=== PATIENT | female | born 1955 | race Caucasian/White ===

== ENCOUNTER 2017-05-10 16:41 | Inpatient (IN) | payer OTHER ==
[~2017-05-10] VITALS: Ht 162.6 cm; Wt 106.2 kg
[2017-05-10] MEDS ORDERED: ALBUTEROL SULFATE 2.5 MG/3 ML NPPB SCH (17:00)
[2017-05-10] MEDS ORDERED: ACETAMINOPHEN 325 MG TABLET PO ONE (17:00)
[2017-05-10] MEDS ORDERED: SODIUM CHLORIDE 0.9% 1,000ML IVBOLUS ONE (17:00)
[2017-05-10] MEDS ORDERED: SODIUM CHLORIDE FLUSH 10ML SYR IVF ONE (17:00)
[2017-05-10] MEDS ORDERED: ALBUTEROL SULFATE 2.5 MG/3 ML ONE (17:03)
[2017-05-10] MEDS ORDERED: ACETAMINOPHEN 325 MG TABLET ONE (17:04)
[2017-05-10] MEDS ORDERED: PLEASE ENTER ALLERGIES MC SCH ×2 (17:30)
[2017-05-10 17:35] LABS: RAPID INFLUENZA A Negative (Negative); RAPID INFLUENZA B Negative (Negative)
[2017-05-10 17:38] LABS: ASPARTATE AMINO TRANSFERASE 34 U/L (15-37); BLOOD UREA NITROGEN 14 mg/dL (7-18)
[2017-05-10 17:43] LABS: IS PT STATUS REG ER OR PRE ER? YES
[2017-05-10 17:45] LABS: HEMATOCRIT 38.1 % (34.6-47.8); HEMOGLOBIN 12.7 g/dL (11.7-16.4); WHITE BLOOD COUNT 29.5 x10^3/uL (3.4-10)
[2017-05-10 18:16] LABS: DIFF TOTAL CELLS COUNTED 100 CELL DIFF
[2017-05-10 18:19] LABS: ANISOCYTOSIS 1+; POLYCHROMASIA 1+; VERIFY COUNTS? YES
[2017-05-10] MEDS ORDERED: CEFTRIAXONE PMX 1GM/50ML 50 ML IV ONE (18:30)
[2017-05-10] MEDS ORDERED: AZITHROMYCIN 500 MG in SODIUM CHLORIDE 0.9% 250 ML IV ONE (18:30)
[2017-05-10] MEDS ORDERED: CEFTRIAXONE PMX 1GM/50ML 50 ML ONE (18:32)
[2017-05-10] MEDS ORDERED: IBUPROFEN 200 MG TABLET PO ONE (19:30)
[2017-05-10] MEDS: SODIUM CHLORIDE 0.9% 1,000 ML IV SCH ×2 (19:56→22:14)
[2017-05-10] MEDS ORDERED: DEXTROSE 4 GM TAB.CHEW PO PRN (20:00)
[2017-05-10] MEDS ORDERED: morphine SULFATE 10 MG/ML, 1ML IVPush PRN (20:00)
[2017-05-10] MEDS: ENOXAPARIN 40 MG/0.4 ML SQ SCH (20:00)
[2017-05-10] MEDS ORDERED: AZITHROMYCIN 500 MG in SODIUM CHLORIDE 0.9% 250 ML IV SCH (20:00)
[2017-05-10] MEDS ORDERED: HYDROcodone/CHLORPHENIR ORAL SUSP PO PRN (20:00)
[2017-05-10] MEDS ORDERED: GLUCAGON 1 MG IM PRN (20:00)
[2017-05-10] MEDS ORDERED: hydrALAzine 20 MG/ML, 1ML IVPush PRN (20:00)
[2017-05-10] MEDS ORDERED: DOCUSATE 100 MG CAPSULE PO PRN (20:00)
[2017-05-10] MEDS ORDERED: DEXTROSE 50%, 50ML SYRINGE IVPush PRN (20:00)
[2017-05-10] MEDS ORDERED: ONDANSETRON 2MG/ML, 2ML IVPush PRN (20:00)
[2017-05-10] MEDS: INSULIN ASPART 100 UNITS/ML, PEN SQ-INSULIN SCH (21:00)
[2017-05-10] MEDS: SODIUM CHLORIDE FLUSH 10ML SYR IVF SCH (22:12)
[2017-05-10] MEDS: BENZONATATE 100 MG CAPSULE PO SCH (22:12)
[2017-05-10] MEDS: CALCIUM CARBONATE 500 MG TAB.CHEW PO PRN (22:12)
[2017-05-10 22:29] VITALS: BP 135/95
[2017-05-10] MEDS ORDERED: ALBUTEROL/IPRATROPIUM 2.5MG/0.5MG, 3 ML ONE (23:26)
[2017-05-11 02:37] VITALS: BP 131/71
[2017-05-11 05:35] LABS: HEMATOCRIT 35.7 % (34.6-47.8); HEMOGLOBIN 11.7 g/dL (11.7-16.4); WHITE BLOOD COUNT 28.2 x10^3/uL (3.4-10)
[2017-05-11 05:45] LABS: ASPARTATE AMINO TRANSFERASE 33 U/L (15-37); BLOOD UREA NITROGEN 13 mg/dL (7-18)
[2017-05-11 06:05] LABS: DIFF TOTAL CELLS COUNTED 100 CELL DIFF
[2017-05-11 06:07] LABS: ANISOCYTOSIS 1+; POLYCHROMASIA 1+; VERIFY COUNTS? YES
[2017-05-11] MEDS: PIPERACILLIN/TAZO/PMX 3.375GM 50 ML IV SCH ×3 (06:20→18:38)
[2017-05-11] MEDS ORDERED: CEFTRIAXONE PMX 2GM/50ML 50 ML IV SCH (07:00)
[2017-05-11] MEDS: ALBUTEROL/IPRATROPIUM 2.5MG/0.5MG, 3 ML NPPB SCH ×5 (07:23→22:29)
[2017-05-11] MEDS: INSULIN ASPART 100 UNITS/ML, PEN SQ-INSULIN SCH ×4 (07:33→21:00)
[2017-05-11 08:05] VITALS: BP 127/79
[2017-05-11] MEDS ORDERED: OMNIPAQUE 350 MG/ML, 100ML BOTTLE ONE (08:34)
[2017-05-11] MEDS: BENZONATATE 100 MG CAPSULE PO SCH ×3 (09:10→21:37)
[2017-05-11] MEDS: SODIUM CHLORIDE FLUSH 10ML SYR IVF SCH ×2 (09:10→21:49)
[2017-05-11] MEDS: CALCIUM CARBONATE 500 MG TAB.CHEW PO PRN (09:10)
[2017-05-11] MEDS ORDERED: LOSA1TAB22 PO (10:15)
[2017-05-11] MEDS ORDERED: PRED20TA PO (10:15)
[2017-05-11] MEDS ORDERED: POTA10TA5 PO (10:15)
[2017-05-11] MEDS ORDERED: ALBU1.25 NEB (10:15)
[2017-05-11] MEDS ORDERED: METF500T4 PO (10:15)
[2017-05-11] MEDS: OMEPRAZOLE 20 MG CAPSULE.DR PO SCH (11:22)
[2017-05-11] MEDS: SODIUM CHLORIDE 0.9% 1,000 ML IV SCH (12:35)
[2017-05-11] MEDS: ACETAMINOPHEN 325 MG TABLET PO PRN ×2 (12:36→21:48)
[2017-05-11 16:08] VITALS: BP 117/82
[2017-05-11 16:11] VITALS: BP 117/82
[2017-05-11 18:56] VITALS: BP 139/92
[2017-05-11] MEDS: ENOXAPARIN 40 MG/0.4 ML SQ SCH (21:38)
[2017-05-12] MEDS: PIPERACILLIN/TAZO/PMX 3.375GM 50 ML IV SCH ×3 (00:41→13:00)
[2017-05-12] MEDS: SODIUM CHLORIDE 0.9% 1,000 ML IV SCH (02:33)
[2017-05-12 02:52] VITALS: BP 138/84
[2017-05-12 05:25] LABS: HEMATOCRIT 34.9 % (34.6-47.8); HEMOGLOBIN 11.4 g/dL (11.7-16.4); WHITE BLOOD COUNT 13.6 x10^3/uL (3.4-10)
[2017-05-12 05:47] LABS: BLOOD UREA NITROGEN 12 mg/dL (7-18)
[2017-05-12 05:50] LABS: ASPARTATE AMINO TRANSFERASE 20 U/L (15-37)
[2017-05-12] MEDS: ALBUTEROL/IPRATROPIUM 2.5MG/0.5MG, 3 ML NPPB SCH ×5 (06:59→22:00)
[2017-05-12] MEDS ORDERED: POTASSIUM CHLORIDE 20 MEQ TAB.ER.PRT PO ONE (07:00)
[2017-05-12] MEDS: INSULIN ASPART 100 UNITS/ML, PEN SQ-INSULIN SCH ×4 (07:00→21:01)
[2017-05-12] MEDS: OMEPRAZOLE 20 MG CAPSULE.DR PO SCH (08:01)
[2017-05-12 08:18] VITALS: BP 139/93
[2017-05-12] MEDS: ACETAMINOPHEN 325 MG TABLET PO PRN ×2 (08:37→21:06)
[2017-05-12] MEDS: BENZONATATE 100 MG CAPSULE PO SCH ×3 (09:53→21:00)
[2017-05-12] MEDS: SODIUM CHLORIDE FLUSH 10ML SYR IVF SCH ×2 (09:53→21:00)
[2017-05-12] MEDS: CEFAZOLIN PMX 2GM/50ML 50 ML IVPB SCH ×2 (14:51→22:07)
[2017-05-12 15:56] VITALS: BP 136/86
[2017-05-12 20:07] VITALS: BP 131/85
[2017-05-12] MEDS: ENOXAPARIN 40 MG/0.4 ML SQ SCH (21:00)
[2017-05-13 02:27] VITALS: BP 118/78
[2017-05-13 05:56] LABS: HEMOGLOBIN 10.3 g/dL (11.7-16.4); WHITE BLOOD COUNT 11.1 x10^3/uL (3.4-10)
[2017-05-13] MEDS: CEFAZOLIN PMX 2GM/50ML 50 ML IVPB SCH ×3 (06:11→21:56)
[2017-05-13 06:24] LABS: BLOOD UREA NITROGEN 19 mg/dL (7-18)
[2017-05-13] MEDS: INSULIN ASPART 100 UNITS/ML, PEN SQ-INSULIN SCH ×4 (07:00→20:12)
[2017-05-13] MEDS: ALBUTEROL/IPRATROPIUM 2.5MG/0.5MG, 3 ML NPPB SCH (07:00)
[2017-05-13] MEDS: OMEPRAZOLE 20 MG CAPSULE.DR PO SCH (07:57)
[2017-05-13] MEDS: BENZONATATE 100 MG CAPSULE PO SCH ×3 (07:57→20:12)
[2017-05-13] MEDS: SODIUM CHLORIDE FLUSH 10ML SYR IVF SCH ×2 (07:57→20:13)
[2017-05-13 08:21] VITALS: BP 132/87
[2017-05-13 16:05] VITALS: BP 132/82
[2017-05-13] MEDS: ALBUTEROL/IPRATROPIUM 2.5MG/0.5MG, 3 ML NPPB PRN (19:38)
[2017-05-13 19:44] VITALS: BP 133/82
[2017-05-13] MEDS: ENOXAPARIN 40 MG/0.4 ML SQ SCH (20:13)
[2017-05-14 01:50] VITALS: BP 139/88
[2017-05-14] MEDS: CEFAZOLIN PMX 2GM/50ML 50 ML IVPB SCH ×3 (05:30→21:22)
[2017-05-14 05:34] LABS: HEMATOCRIT 32.1 % (34.6-47.8); HEMOGLOBIN 10.6 g/dL (11.7-16.4); WHITE BLOOD COUNT 9.7 x10^3/uL (3.4-10)
[2017-05-14] MEDS: INSULIN ASPART 100 UNITS/ML, PEN SQ-INSULIN SCH ×4 (07:00→21:21)
[2017-05-14 07:39] VITALS: BP 141/89
[2017-05-14] MEDS: BENZONATATE 100 MG CAPSULE PO SCH ×3 (07:51→21:22)
[2017-05-14] MEDS: OMEPRAZOLE 20 MG CAPSULE.DR PO SCH (07:51)
[2017-05-14] MEDS: SODIUM CHLORIDE FLUSH 10ML SYR IVF SCH ×2 (07:51→21:22)
[2017-05-14] MEDS: ALBUTEROL/IPRATROPIUM 2.5MG/0.5MG, 3 ML NPPB PRN ×2 (08:08→19:06)
[2017-05-14 14:00] VITALS: BP_SYST 134; BP_SYST 141; BP_DIAS 90; BP_DIAS 92
[2017-05-14] MEDS: LOPERAMIDE 2 MG CAPSULE PO PRN (17:36)
[2017-05-14 19:46] VITALS: BP 119/81
[2017-05-14] MEDS: ENOXAPARIN 40 MG/0.4 ML SQ SCH (21:24)
[2017-05-15 02:30] VITALS: BP 135/85
[2017-05-15] MEDS: ACETAMINOPHEN 325 MG TABLET PO PRN (05:09)
[2017-05-15] MEDS: CEFAZOLIN PMX 2GM/50ML 50 ML IVPB SCH ×3 (05:09→21:56)
[2017-05-15 05:35] LABS: HEMATOCRIT 34.6 % (34.6-47.8); HEMOGLOBIN 11.1 g/dL (11.7-16.4)
[2017-05-15 05:43] LABS: BLOOD UREA NITROGEN 17 mg/dL (7-18)
[2017-05-15] MEDS: INSULIN ASPART 100 UNITS/ML, PEN SQ-INSULIN SCH ×4 (07:00→20:21)
[2017-05-15 07:43] VITALS: BP 132/87
[2017-05-15] MEDS: SODIUM CHLORIDE FLUSH 10ML SYR IVF SCH ×2 (09:00→21:55)
[2017-05-15] MEDS: ALBUTEROL/IPRATROPIUM 2.5MG/0.5MG, 3 ML NPPB SCH ×2 (10:20→19:20)
[2017-05-15] MEDS: BENZONATATE 100 MG CAPSULE PO SCH ×3 (10:41→21:55)
[2017-05-15] MEDS: LOPERAMIDE 2 MG CAPSULE PO PRN ×2 (10:41→16:23)
[2017-05-15] MEDS: OMEPRAZOLE 20 MG CAPSULE.DR PO SCH (10:41)
[2017-05-15 14:00] VITALS: BP 146/91
[2017-05-15 19:04] VITALS: BP 144/97
[2017-05-15] MEDS: ENOXAPARIN 40 MG/0.4 ML SQ SCH (21:56)
[2017-05-16 02:22] VITALS: BP 146/81
[2017-05-16] MEDS: ACETAMINOPHEN 325 MG TABLET PO PRN (05:41)
[2017-05-16] MEDS: CEFAZOLIN PMX 2GM/50ML 50 ML IVPB SCH ×3 (05:41→22:58)
[2017-05-16] MEDS: INSULIN ASPART 100 UNITS/ML, PEN SQ-INSULIN SCH ×4 (07:00→20:15)
[2017-05-16 07:21] VITALS: BP 153/92
[2017-05-16] MEDS: ALBUTEROL/IPRATROPIUM 2.5MG/0.5MG, 3 ML NPPB SCH ×2 (07:30→20:09)
[2017-05-16] MEDS: SODIUM CHLORIDE FLUSH 10ML SYR IVF SCH ×2 (09:00→20:14)
[2017-05-16] MEDS: LOPERAMIDE 2 MG CAPSULE PO PRN (09:45)
[2017-05-16] MEDS: OMEPRAZOLE 20 MG CAPSULE.DR PO SCH (09:46)
[2017-05-16] MEDS: BENZONATATE 100 MG CAPSULE PO SCH ×3 (09:47→20:15)
[2017-05-16 15:03] VITALS: BP 145/95
[2017-05-16 19:55] VITALS: BP 140/79
[2017-05-16] MEDS: ENOXAPARIN 40 MG/0.4 ML SQ SCH (20:07)
[2017-05-17 03:25] VITALS: BP 149/86
[2017-05-17] MEDS: ACETAMINOPHEN 325 MG TABLET PO PRN (03:33)
[2017-05-17] MEDS: INSULIN ASPART 100 UNITS/ML, PEN SQ-INSULIN SCH ×4 (07:00→20:43)
[2017-05-17 08:00] VITALS: BP 148/90
[2017-05-17] MEDS: CEFAZOLIN PMX 2GM/50ML 50 ML IVPB SCH ×3 (08:14→23:25)
[2017-05-17] MEDS: SODIUM CHLORIDE FLUSH 10ML SYR IVF SCH ×2 (08:15→20:50)
[2017-05-17] MEDS: BENZONATATE 100 MG CAPSULE PO SCH ×3 (08:15→20:49)
[2017-05-17] MEDS: OMEPRAZOLE 20 MG CAPSULE.DR PO SCH (08:15)
[2017-05-17] MEDS: ALBUTEROL/IPRATROPIUM 2.5MG/0.5MG, 3 ML NPPB SCH ×2 (09:00→20:08)
[2017-05-17 14:00] VITALS: BP 145/95
[2017-05-17 19:54] VITALS: BP 135/84
[2017-05-17] MEDS: ENOXAPARIN 40 MG/0.4 ML SQ SCH (20:49)
[2017-05-18 03:32] VITALS: BP 168/92
[2017-05-18] MEDS: INSULIN ASPART 100 UNITS/ML, PEN SQ-INSULIN SCH (07:00)
[2017-05-18] MEDS: BENZONATATE 100 MG CAPSULE PO SCH (07:45)
[2017-05-18] MEDS: OMEPRAZOLE 20 MG CAPSULE.DR PO SCH (07:45)
[2017-05-18] MEDS: CEFAZOLIN PMX 2GM/50ML 50 ML IVPB SCH (07:46)
[2017-05-18] MEDS: SODIUM CHLORIDE FLUSH 10ML SYR IVF SCH (07:46)
[2017-05-18 08:00] VITALS: BP 149/97
[2017-05-18] MEDS: ALBUTEROL/IPRATROPIUM 2.5MG/0.5MG, 3 ML NPPB SCH (08:55)
[2017-05-18] MEDS ORDERED: CEPH-368 PO (08:56)
[2017-05-18] MEDS ORDERED: FLU VACC QS2017-18 (36MOS+) UP/PF 0.5 ML IM-VACC ONE (10:30)
[2017-05-18] MEDS ORDERED: PNEUMOCOCCAL 23 VACCINE IM-VACC ONE (10:30)
== END 2017-05-18 11:05 | disposition home or self-care (01) | DRG 871 ==
LOC: ED 18:19 → EDIP 19:42 → SUATTDRO 19:54 → 3NE 21:30
PROVIDERS: ADMIT Hospitalist; ATTEND Hospitalist
DX: A41.9 Sepsis, unspecified organism (principal); J96.20 Acute and chronic respiratory failure, unspecified whether with hypoxia or hypercapnia; D89.9 Disorder involving the immune mechanism, unspecified; E66.01 Morbid (severe) obesity due to excess calories; J84.10 Pulmonary fibrosis, unspecified; J44.0 Chronic obstructive pulmonary disease with (acute) lower respiratory infection; Z68.41 Body mass index [BMI] 40.0-44.9, adult; J44.1 Chronic obstructive pulmonary disease with (acute) exacerbation; L03.116 Cellulitis of left lower limb; I11.9 Hypertensive heart disease without heart failure; K44.9 Diaphragmatic hernia without obstruction or gangrene; T38.0X5A Adverse effect of glucocorticoids and synthetic analogues, initial encounter; B95.1 Streptococcus, group B, as the cause of diseases classified elsewhere; E11.9 Type 2 diabetes mellitus without complications; F17.210 Nicotine dependence, cigarettes, uncomplicated; Z23 Encounter for immunization; Z79.52 Long term (current) use of systemic steroids; Z79.84 Long term (current) use of oral hypoglycemic drugs; Z88.1 Allergy status to other antibiotic agents
CPT/HCPCS: 36415; 71010; 71260; 80048; 80053; 81003; 82962; 83036; 83605; 83735; 83880; 84100; 84484; 85025; 85379; 87040; 87147; 87181; 87324; 87400; 90686; 90732; 93005; 93306; 94640; 96361; 96365; 96366; 96368; J0456; J0690; J0696; J1650; J1815; J2543; J7620; Q9967; J7030; J7050; J7512

== ENCOUNTER → 2018-01-01 | Outpatient (CLI) | payer OTHER ==
[~2018-01-01] MED LIST: ALBU1.25 NEB; CEPH-368 PO; LOSA1TAB22 PO; METF500T5 PO; POTA10TA5 PO; PRED20TA PO
== END | disposition home or self-care (01) ==
LOC: WOUND 12:54
PROVIDERS: ATTEND Family Medicine
DX: E11.622 Type 2 diabetes mellitus with other skin ulcer (principal); L97.811 Non-pressure chronic ulcer of other part of right lower leg limited to breakdown of skin; E66.01 Morbid (severe) obesity due to excess calories; E78.5 Hyperlipidemia, unspecified; I11.9 Hypertensive heart disease without heart failure; J44.0 Chronic obstructive pulmonary disease with (acute) lower respiratory infection; J44.1 Chronic obstructive pulmonary disease with (acute) exacerbation; F17.210 Nicotine dependence, cigarettes, uncomplicated; Z68.41 Body mass index [BMI] 40.0-44.9, adult
CPT/HCPCS: 11042; 99205

== ENCOUNTER → 2018-01-08 | Outpatient (CLI) | payer OTHER | END | disposition home or self-care (01) | LOC: WOUND 01-01 14:00 | PROVIDERS: ATTEND Family Medicine | DX: E11.622 Type 2 diabetes mellitus with other skin ulcer (principal); L97.811 Non-pressure chronic ulcer of other part of right lower leg limited to breakdown of skin; E66.01 Morbid (severe) obesity due to excess calories; E78.5 Hyperlipidemia, unspecified; I11.9 Hypertensive heart disease without heart failure; J44.0 Chronic obstructive pulmonary disease with (acute) lower respiratory infection; J44.1 Chronic obstructive pulmonary disease with (acute) exacerbation; F17.210 Nicotine dependence, cigarettes, uncomplicated; Z68.41 Body mass index [BMI] 40.0-44.9, adult | CPT/HCPCS: 11042 ==

== ENCOUNTER → 2018-01-15 | Outpatient (CLI) | payer OTHER | END | disposition home or self-care (01) | LOC: WOUND 11:01 | PROVIDERS: ATTEND Family Medicine | DX: E11.622 Type 2 diabetes mellitus with other skin ulcer (principal); L97.811 Non-pressure chronic ulcer of other part of right lower leg limited to breakdown of skin; E66.01 Morbid (severe) obesity due to excess calories; E78.5 Hyperlipidemia, unspecified; I11.9 Hypertensive heart disease without heart failure; J44.0 Chronic obstructive pulmonary disease with (acute) lower respiratory infection; J44.1 Chronic obstructive pulmonary disease with (acute) exacerbation; F17.210 Nicotine dependence, cigarettes, uncomplicated; Z68.41 Body mass index [BMI] 40.0-44.9, adult | CPT/HCPCS: 97597 ==

== ENCOUNTER → 2018-01-22 | Outpatient (CLI) | payer OTHER | END | disposition home or self-care (01) | LOC: WOUND 10:30 | PROVIDERS: ATTEND Family Medicine | DX: E11.622 Type 2 diabetes mellitus with other skin ulcer (principal); L97.811 Non-pressure chronic ulcer of other part of right lower leg limited to breakdown of skin; E66.01 Morbid (severe) obesity due to excess calories; E78.5 Hyperlipidemia, unspecified; I11.9 Hypertensive heart disease without heart failure; J44.0 Chronic obstructive pulmonary disease with (acute) lower respiratory infection; J44.1 Chronic obstructive pulmonary disease with (acute) exacerbation; F17.210 Nicotine dependence, cigarettes, uncomplicated; Z68.41 Body mass index [BMI] 40.0-44.9, adult | CPT/HCPCS: 97597 ==

== ENCOUNTER → 2018-01-29 | Outpatient (CLI) | payer OTHER | END | disposition home or self-care (01) | LOC: WOUND 10:31 | PROVIDERS: ATTEND Family Medicine | DX: E11.622 Type 2 diabetes mellitus with other skin ulcer (principal); L97.812 Non-pressure chronic ulcer of other part of right lower leg with fat layer exposed; I11.9 Hypertensive heart disease without heart failure; J44.0 Chronic obstructive pulmonary disease with (acute) lower respiratory infection; J44.1 Chronic obstructive pulmonary disease with (acute) exacerbation; E66.01 Morbid (severe) obesity due to excess calories; J44.9 Chronic obstructive pulmonary disease, unspecified; E78.5 Hyperlipidemia, unspecified; F17.210 Nicotine dependence, cigarettes, uncomplicated; Z68.41 Body mass index [BMI] 40.0-44.9, adult | CPT/HCPCS: 97597 ==

== ENCOUNTER → 2018-02-05 | Outpatient (CLI) | payer OTHER | END | disposition home or self-care (01) | LOC: WOUND 10:28 | PROVIDERS: ATTEND Family Medicine | DX: E11.622 Type 2 diabetes mellitus with other skin ulcer (principal); L97.812 Non-pressure chronic ulcer of other part of right lower leg with fat layer exposed; I11.9 Hypertensive heart disease without heart failure; E11.8 Type 2 diabetes mellitus with unspecified complications; E78.5 Hyperlipidemia, unspecified; E66.01 Morbid (severe) obesity due to excess calories; Z68.41 Body mass index [BMI] 40.0-44.9, adult; Z87.891 Personal history of nicotine dependence | CPT/HCPCS: 11042 ==

== ENCOUNTER → 2018-02-12 | Outpatient (CLI) | payer OTHER ==
[~2018-02-12] MED LIST changes: +METF500T17 PO; -METF500T5 PO
== END | disposition home or self-care (01) ==
LOC: WOUND 10:29
PROVIDERS: ATTEND Internal Medicine Cardiovascular Disease
DX: E11.622 Type 2 diabetes mellitus with other skin ulcer (principal); L97.812 Non-pressure chronic ulcer of other part of right lower leg with fat layer exposed; E78.5 Hyperlipidemia, unspecified; K21.9 Gastro-esophageal reflux disease without esophagitis; I11.0 Hypertensive heart disease with heart failure; I50.9 Heart failure, unspecified; J44.1 Chronic obstructive pulmonary disease with (acute) exacerbation; E66.01 Morbid (severe) obesity due to excess calories; F17.210 Nicotine dependence, cigarettes, uncomplicated; Z68.41 Body mass index [BMI] 40.0-44.9, adult
CPT/HCPCS: 99213

== ENCOUNTER → 2018-02-19 | Outpatient (CLI) | payer OTHER | END | disposition home or self-care (01) | LOC: WOUND 10:49 | PROVIDERS: ATTEND Family Medicine | DX: E11.622 Type 2 diabetes mellitus with other skin ulcer (principal); L97.812 Non-pressure chronic ulcer of other part of right lower leg with fat layer exposed; E66.01 Morbid (severe) obesity due to excess calories; E78.5 Hyperlipidemia, unspecified; I11.9 Hypertensive heart disease without heart failure; J44.0 Chronic obstructive pulmonary disease with (acute) lower respiratory infection; J44.1 Chronic obstructive pulmonary disease with (acute) exacerbation; F17.210 Nicotine dependence, cigarettes, uncomplicated; Z68.41 Body mass index [BMI] 40.0-44.9, adult | CPT/HCPCS: 97597 ==

== ENCOUNTER → 2018-02-26 | Outpatient (CLI) | payer OTHER | END | disposition home or self-care (01) | LOC: WOUND 11:00 | PROVIDERS: ATTEND Family Medicine | DX: E11.622 Type 2 diabetes mellitus with other skin ulcer (principal); L97.812 Non-pressure chronic ulcer of other part of right lower leg with fat layer exposed; I11.0 Hypertensive heart disease with heart failure; I50.9 Heart failure, unspecified; J44.9 Chronic obstructive pulmonary disease, unspecified; E78.5 Hyperlipidemia, unspecified; K21.9 Gastro-esophageal reflux disease without esophagitis; E66.01 Morbid (severe) obesity due to excess calories; Z68.41 Body mass index [BMI] 40.0-44.9, adult; Z87.891 Personal history of nicotine dependence | CPT/HCPCS: 97597 ==

== ENCOUNTER → 2018-03-12 | Outpatient (CLI) | payer OTHER | END | disposition home or self-care (01) | LOC: WOUND 10:41 | PROVIDERS: ATTEND Family Medicine | DX: E11.622 Type 2 diabetes mellitus with other skin ulcer (principal); L97.812 Non-pressure chronic ulcer of other part of right lower leg with fat layer exposed; I11.0 Hypertensive heart disease with heart failure; I50.9 Heart failure, unspecified; E78.5 Hyperlipidemia, unspecified; K21.9 Gastro-esophageal reflux disease without esophagitis; E66.01 Morbid (severe) obesity due to excess calories; J44.1 Chronic obstructive pulmonary disease with (acute) exacerbation; J44.0 Chronic obstructive pulmonary disease with (acute) lower respiratory infection; Z68.41 Body mass index [BMI] 40.0-44.9, adult; Z87.891 Personal history of nicotine dependence | CPT/HCPCS: 97597 ==

== ENCOUNTER → 2018-03-29 | Outpatient (CLI) | payer OTHER | END | disposition home or self-care (01) | LOC: WOUND 10:53 | PROVIDERS: ATTEND Internal Medicine | DX: E11.622 Type 2 diabetes mellitus with other skin ulcer (principal); L97.812 Non-pressure chronic ulcer of other part of right lower leg with fat layer exposed; I11.0 Hypertensive heart disease with heart failure; I50.9 Heart failure, unspecified; E78.5 Hyperlipidemia, unspecified; K21.9 Gastro-esophageal reflux disease without esophagitis; E66.01 Morbid (severe) obesity due to excess calories; J44.1 Chronic obstructive pulmonary disease with (acute) exacerbation; J44.0 Chronic obstructive pulmonary disease with (acute) lower respiratory infection; Z68.41 Body mass index [BMI] 40.0-44.9, adult; Z87.891 Personal history of nicotine dependence | CPT/HCPCS: 99214 ==

== ENCOUNTER 2018-05-02 22:39 | Emergency (ER) | payer OTHER ==
[~2018-05-02] VITALS: Ht 157.5 cm; Wt 105.0 kg
[2018-05-02 22:43] VITALS: BP 139/86
[2018-05-02] MEDS ORDERED: KETOROLAC 30 MG/1 ML ONE (23:14)
[2018-05-02] MEDS ORDERED: KETOROLAC 30 MG/1 ML IM ONE (23:30)
[2018-05-03] MEDS ORDERED: HYDROcodone/APAP 5/325 TABLET ONE (00:23)
[2018-05-03] MEDS ORDERED: DIAZEPAM 5 MG TABLET ONE (00:23)
[2018-05-03] MEDS ORDERED: DIAZEPAM 5 MG TABLET PO ONE (00:30)
[2018-05-03] MEDS ORDERED: HYDROcodone/APAP 5/325 TABLET PO ONE (00:30)
== END 2018-05-03 00:43 | disposition home or self-care (01) ==
LOC: ED 05-03 00:02
DX: S32.020A Wedge compression fracture of second lumbar vertebra, initial encounter for closed fracture (principal); S32.040A Wedge compression fracture of fourth lumbar vertebra, initial encounter for closed fracture; E11.9 Type 2 diabetes mellitus without complications; I10 Essential (primary) hypertension; J44.9 Chronic obstructive pulmonary disease, unspecified; F17.210 Nicotine dependence, cigarettes, uncomplicated; X58.XXXA Exposure to other specified factors, initial encounter; Y93.89 Activity, other specified; Y92.89 Other specified places as the place of occurrence of the external cause; Y99.8 Other external cause status
CPT/HCPCS: 72110; 96372; 99283; J1885

== ENCOUNTER 2018-05-08 14:22 | Emergency (ER) | payer OTHER ==
[~2018-05-08] VITALS: Ht 160 cm; Wt 105.0 kg
[2018-05-08] MEDS ORDERED: IBUPROFEN 800 MG TABLET PO STA (15:52)
[2018-05-08] MEDS ORDERED: IBUPROFEN 200 MG TABLET ONE (15:54)
[2018-05-08 15:55] LABS: BASOPHILS # (AUTO) 0.05 x10^3/uL (0-0.1); BASOPHILS % (AUTO) 1 % (0-1); EOSINOPHILS # (AUTO) 0.12 x10^3/uL (0-0.4); EOSINOPHILS % (AUTO) 1 % (1-7); LYMPHOCYTES % (AUTO) 38 % (22-44); MD NO; MEAN CORPUSCULAR HEMOGLOBIN 24.2 pg (27.0-34.8); MEAN CORPUSCULAR HGB CONC 31.7 g/dL (32.4-35.8); MEAN CORPUSCULAR VOLUME 76.1 fL (80-100); MEAN PLATELET VOLUME 7.3 fL (7.4-10.4); MONOCYTES # (AUTO) 0.74 x10^3/uL (0.2-0.8); MONOCYTES % (AUTO) 7 % (2-9); NEUTROPHILS # (AUTO) 6.19 x10^3/uL (1.8-6.8); NEUTROPHILS % (AUTO) 54 % (42-75); PLATELET COUNT 461 x10^3/uL (130-400); RED BLOOD COUNT 4.66 x10^6/uL (3.82-5.3); RED CELL DISTRIBUTION WIDTH 18.5 % (9.6-15.2)
[2018-05-08 16:03] LABS: INTERNATIONAL NORMALIZED RATIO 0.95 (0.93-1.1); PROTHROMBIN TIME 10.1 Seconds (9.6-11.5)
[2018-05-08 16:04] LABS: ALANINE AMINOTRANSFERASE 28 U/L (12-78); ALBUMIN 3.4 g/dL (3.4-5.0); ANION GAP 7 mmol/L (5-15); CALCIUM 9.3 mg/dL (8.5-10.1); CHLORIDE 106 mmol/L (98-107); CREATININE 0.81 mg/dL (0.55-1.02)
[2018-05-08 16:06] LABS: ACETAMINOPHEN 3 mcg/mL (10-30); ALKALINE PHOSPHATASE 108 U/L (45-117); BILIRUBIN,TOTAL 0.4 mg/dL (0.2-1.0); TOTAL PROTEIN 6.8 g/dL (6.4-8.2)
[2018-05-08 17:23] VITALS: BP 174/110
== END 2018-05-08 18:05 | disposition home or self-care (01) ==
LOC: ED 16:53
DX: M48.56XA Collapsed vertebra, not elsewhere classified, lumbar region, initial encounter for fracture (principal); I10 Essential (primary) hypertension; E11.9 Type 2 diabetes mellitus without complications; F17.200 Nicotine dependence, unspecified, uncomplicated
CPT/HCPCS: 36415; 72131; 80053; 80307; 85025; 85610; 99284

== ENCOUNTER → 2018-05-27 | Outpatient (CLI) | payer OTHER | END | disposition home or self-care (01) | LOC: RAD 16:35 | PROVIDERS: ATTEND Physical Medicine & Rehabilitation | DX: M48.56XA Collapsed vertebra, not elsewhere classified, lumbar region, initial encounter for fracture (principal); M51.36 Other intervertebral disc degeneration, lumbar region; N94.89 Other specified conditions associated with female genital organs and menstrual cycle; D18.09 Hemangioma of other sites; Z80.3 Family history of malignant neoplasm of breast | CPT/HCPCS: 72158 ==

== ENCOUNTER → 2018-07-05 | Outpatient (CLI) | payer OTHER | END | disposition home or self-care (01) | LOC: RAD 13:12 | PROVIDERS: ATTEND Nurse Practitioner | DX: S22.089A Unspecified fracture of T11-T12 vertebra, initial encounter for closed fracture (principal); X58.XXXA Exposure to other specified factors, initial encounter; Y93.89 Activity, other specified; Y92.89 Other specified places as the place of occurrence of the external cause; Y99.8 Other external cause status; E11.9 Type 2 diabetes mellitus without complications; J44.1 Chronic obstructive pulmonary disease with (acute) exacerbation; F17.200 Nicotine dependence, unspecified, uncomplicated | CPT/HCPCS: 72148 ==

== ENCOUNTER 2018-07-18 03:29 | Inpatient (IN) | payer OTHER ==
[~2018-07-18] VITALS: Ht 175.3 cm; Wt 99.3 kg
[~2018-07-18 03:29] MED LIST changes: +CALC3.7S5 NS; +CHOL200074 PO; +FURO40TA6 PO; +GABA600T7 PO; +OMEP-110 PO; +TIZA2TAB PO
--- NOTE | 2018-07-18 03:40 | NUR ---
63 Y/O FEMALE BIB [facility] FOR AMS. DAUGHTER STATES PT HAD PROGRESSIVELY GOTTEN WORSE THROUGHOUT THEY DAY, MAKING "ODD STATEMENTS", ALL STARTED AROUND 0930 YESTERDAY AM. THIS AM AROUND 0330 THE PT WAS FOUND "SLUMPED OVER" WITH BLACK VOMIT ON HER CLOTHING. SHE WAS AWAKE HOWEVER WOULD NOT RESPOND TO FAMILY. EMS REPORT THE PT RA O2 SAT UPON ARRIVAL WAS IN THE LOWER 80S. SHE WAS ON 2LPM NC VIA HOME O2. SHE WAS PLACED ON 4LPM AND SAT INCREASED TO LOW 90S. HX OF COPD, DIABETES, HTN. FSBS 211. PT WAS SEEN IN THIS ER YESTERDAY FOR A FALL AND LAC TO RIGHT LOWER LEG, STITCHES PLACED. UPON ARRIVAL TO THE ER THE PT IS ON GURNEY WITH EYES CLOSED, RESPIRATIONS APPEAR TO BE LABORED. ACCESSORY MUSCLE USE PRESENT. SKIN APPEARS TO BE SLIGHTLY PALE. PT OPENS EYES TO NAME BEING CALLED, WHEN ASKED ORIENTATION QUESTIONS SHE JUST RESPONDS WITH "YEAH". SHE IS ABLE TO FOLLOW COMMANDS. EKG OBTAINED. MONITORING EQUIPMENT APPLIED. ALL VITALS STABLE. SINUS TACH ON THE MONITOR, NO ST CHANGES, NO ECTOPY NOTED. 18G IV PLACED BY EMS IN RIGHT AC. PT KEEPS TURNING HERSELF TO THE LEFT SIDE. FACE SYMMETRICAL, SENIOR PHP DEVELOPER STRENGTH EQUAL, NEURO INTACT. PUPILS EQUAL. CALL LIGHT WITHIN REACH. AWAITING PROVIDER TO SEE PT.
--- NOTE | 2018-07-18 03:52 | NUR ---
PT SATS 88-90% ON NC @ 4-6LPM. PT PLACED ON OXYMASK AT 8LPM, SATS INCREASED TO 95%, HR DECREASED.
[2018-07-18] MEDS ORDERED: SODIUM CHLORIDE FLUSH 10ML SYR IVF ONE (04:00)
--- NOTE | 2018-07-18 04:00 | NUR ---
PT MORE ALERT, HAS REPOSITIONED HERSELF IN BED. ANSWERS ORIENTATION QUESTIONS APPROPRIATELY HOWEVER MAKES COMMENTS THAT DON'T MAKE SENSE. PT RANDOMLY STATES "TOMORROW" AND "THE BLACK BEANS". WHEN ASKED WHAT SHE IS REFERRING TO, PT STATES "I DONT' KNOW". PT C/O "I JUST DON'T FEEL WELL, MY BACK HURTS". PT CANNOT GIVE ANY SPECIFIC COMPLAINT AT THIS TIME BESIDES BACK PAIN. DR. YEN MADE AWARE OF PT CHANGES
--- NOTE | 2018-07-18 04:08 | NUR ---
DR. YEN AT BEDSIDE EVALUATING PT. RECTAL EXAM DONE WITH THIS RN SCRAP PREPARER
[2018-07-18] MEDS ORDERED: CEFTRIAXONE PMX 1GM/50ML 50 ML ONE (04:29)
[2018-07-18] MEDS ORDERED: CEFTRIAXONE PMX 1GM/50ML 50 ML IV ONE (04:30)
[2018-07-18] MEDS ORDERED: AZITHROMYCIN 500 MG in SODIUM CHLORIDE 0.9% 250 ML IV ONE (04:30)
[2018-07-18] MEDS ORDERED: SODIUM CHLORIDE 0.9%, 500ML IVBOLUS ONE (04:30)
--- NOTE | 2018-07-18 04:41 | NUR ---
PT MEDICATED PER EMAR. 5 RIGHTS ADDRESSED. BLOOD CULTURES DRAWN X 2. PT REMAINS CONFUSED, AROUSES TO VERBAL STIMULI. DROWSY. VITALS STABLE. RT AT BEDSIDE EVALUATING PT. O2 SAT REMAINS 95%, WOB HAS DECREASED BUT APPEARS SOMEWHAT LABORED STILL, ABD ACCESSORY MUSCLE USE PRESENT
--- NOTE | 2018-07-18 04:48 | NUR ---
PER DR. YEN, OK TO HOLD OFF ON STRAIGHT CATH DUE TO PT NOT BEING ABLE TO LIE FLAT.
--- NOTE | 2018-07-18 05:11 | NUR ---
SECOND ABX STARTED PER EMAR. 5 RIGHTS ADDRESSED. PT NOW ON OPTI-FLOW. TOLERATING WELL. O2 SAT 96%. WOB HAS DECREASED. NOT MUCH ACCESSORY MUSCLE USE PRESENT. PT'S MENTATION REMAINS THE SAME, ALERT AND ORIENTED X 3 WITH CONFUSING STATEMENTS NOTED.
[2018-07-18 05:15] LABS: MEAN CORPUSCULAR HGB CONC 31.2 g/dL (32.4-35.8); MEAN CORPUSCULAR VOLUME 76.7 fL (80-100); MEAN PLATELET VOLUME 7.2 fL (7.4-10.4); PLATELET COUNT 489 x10^3/uL (130-400); RED BLOOD COUNT 4.45 x10^6/uL (3.82-5.3); RED CELL DISTRIBUTION WIDTH 18.7 % (9.6-15.2)
[2018-07-18 05:20] LABS: ALBUMIN 2.6 g/dL (3.4-5.0); ANION GAP 9 mmol/L (5-15); CALCIUM 9.1 mg/dL (8.5-10.1); CHLORIDE 104 mmol/L (98-107)
[2018-07-18 05:23] LABS: ALANINE AMINOTRANSFERASE 37 U/L (12-78); ALKALINE PHOSPHATASE 134 U/L (45-117); BILIRUBIN,TOTAL 0.4 mg/dL (0.2-1.0); CREATININE 0.91 mg/dL (0.55-1.02); TROPONIN I 0.018 ng/mL (0.000-0.045)
--- NOTE | 2018-07-18 05:38 | NUR ---
PT UNABLE TO ANSWER QUESTIONS IN REGARDS TO MED REC, NO FAMILY HERE TO GET MEDICATION INFORMATION FROM.
[2018-07-18 06:04] LABS: BASOPHILS # (AUTO) 0.04 x10^3/uL (0-0.1); BASOPHILS % (AUTO) 0 % (0-1); EOSINOPHILS # (AUTO) 0.01 x10^3/uL (0-0.4); EOSINOPHILS % (AUTO) 0 % (1-7); LYMPHOCYTES % (AUTO) 7 % (22-44); MD SCAN; MONOCYTES # (AUTO) 1.39 x10^3/uL (0.2-0.8); MONOCYTES % (AUTO) 7 % (2-9); NEUTROPHILS # (AUTO) 18.32 x10^3/uL (1.8-6.8); NEUTROPHILS % (AUTO) 86 % (42-75)
--- NOTE | 2018-07-18 06:12 | NUR ---
2ND IV STARTED ON PT, PT NOW NOT EASILY AROUSED BEFORE. PT WILL OPEN HER EYES AND TURN HER HEAD TO HER NAME BEING CALLED, HOWEVER SLOWLY ANSWERS "YEAH" TO ANY QUESTIONS SHE IS ASKED, WHILE EYES REMAIN CLOSED. RR HAS DECREASED, O2 SATS NOW 93% ON OPTIFLOW. DR. LUCERO AWARE
--- NOTE | 2018-07-18 06:22 | NUR ---
DR. LUCERO AT BEDSIDE EVALUATING PT.
[2018-07-18] MEDS ORDERED: ETOMIDATE 20 MG/10 ML IV ONE (06:30)
[2018-07-18] MEDS ORDERED: SUCCINYLCHOLINE 20 MG/ML, 10ML IVPush ONE (06:30)
--- NOTE | 2018-07-18 06:33 | NUR ---
PT TO BE INTUBATED. MOVED TO TRAUMA 4
--- NOTE | 2018-07-18 06:56 | NUR ---
PT INTUBATED BY DR. LUCERO, WITH 8.0 ET TUBE, 24CM AT THE LIP. BILATERAL BREATH SOUNDS, EQUAL CHEST RISE, ETCO2 46. PT SEDATED WITH 20MG OF ETOMIDATE AND 100MG OF SUCCS FOR INTUBATION.
[2018-07-18] MEDS: MIDAZOLAM HCL 25 MG in SODIUM CHLORIDE 0.9% 245 ML IV PRN ×2 (06:57→10:12)
--- NOTE | 2018-07-18 07:02 | NUR ---
REPORT TO MONROE CORREA
--- NOTE | 2018-07-18 07:19 | NUR ---
REPORT TO MONROE SALMERON.
--- NOTE | 2018-07-18 07:36 | NUR ---
DAVIS INSERTED AT 7:30 16 STATELESS. URINE COLLECTED.
--- NOTE | 2018-07-18 07:46 | NUR ---
PER OG TUBE X-RAY REPORT. OG KINKED AND IN LEFT LUNG. OG DISCONTINUED AND PT TAKEN TO CT AND THEN UP TO FLOOR.
[2018-07-18 07:55] LABS: MICROSCOPIC NOT IND
[2018-07-18 07:58] LABS: CULTURE INDICATED? NO
--- NOTE | 2018-07-18 08:08 | NUR ---
LATE ENTRY: [address] SCAN AND THEN TRANSFERRED TO ICU. RT AT BEDSIDE.
--- NOTE | 2018-07-18 08:50 | NUR ---
LATE ENTRY:07:01 BILATERAL HAND RESTRAINTS PLACED ON PT.
[2018-07-18] MEDS ORDERED: ETOMIDATE 40 MG/20 ML ONE (08:54)
[2018-07-18] MEDS ORDERED: SUCCINYLCHOLINE 20 MG/ML, 10ML ONE (08:54)
[2018-07-18] MEDS ORDERED: ACETAMINOPHEN 325 MG TABLET PO PRN (09:30)
[2018-07-18] MEDS ORDERED: ONDANSETRON 2MG/ML, 2ML IVPush PRN (09:30)
[2018-07-18] MEDS ORDERED: BISACODYL 10 MG SUPP PR PRN ×2 (09:30→10:30)
[2018-07-18] MEDS ORDERED: POLYETHYLENE GLYCOL 17 GM PACKET PO PRN (09:30)
[2018-07-18] MEDS: SODIUM CHLORIDE 0.9% 1,000 ML IV SCH (10:03)
[2018-07-18] MEDS: FAMOTIDINE 20 MG/2 ML IVPush SCH ×2 (10:03→21:34)
[2018-07-18] MEDS: ALBUTEROL/IPRATROPIUM 2.5MG/0.5MG, 3 ML INLINE SCH ×4 (10:25→22:30)
[2018-07-18] MEDS ORDERED: GLUCAGON 1 MG IM PRN (10:30)
[2018-07-18] MEDS ORDERED: PHARMACY MAY ADJ FOR RENAL FX MC SCH (10:30)
[2018-07-18] MEDS ORDERED: LACTULOSE 20 GM/30 ML UDC NG PRN (10:30)
[2018-07-18] MEDS ORDERED: LIDOCAINE-MPF 1%, 2ML ENDO PRN (10:30)
[2018-07-18] MEDS ORDERED: SENNA/DOCUSATE TABLET NG PRN (10:30)
[2018-07-18] MEDS ORDERED: DEXTROSE 4 GM TAB.CHEW PO PRN (10:30)
[2018-07-18] MEDS ORDERED: DEXTROSE 50%, 50ML SYRINGE IVPush PRN (10:30)
[2018-07-18] MEDS ORDERED: SENNOSIDES 8.8 MG/5 ML ORAL SOL NG PRN (10:30)
[2018-07-18] MEDS: INSULIN LISPRO 100 UNITS/ML, PEN SQ-INSULIN SCH ×3 (11:00→21:00)
[2018-07-18 11:12] LABS: TROPONIN I < 0.015 ng/mL (0.000-0.045)
[2018-07-18] MEDS: methylPREDNISolone SOD SUCC 40 MG/ML IV SCH ×3 (12:14→23:56)
[2018-07-18] MEDS: ENOXAPARIN 40 MG/0.4 ML SQ SCH (12:14)
[2018-07-18] MEDS: LINEZOLID PMX 600MG/300ML 300 ML IV SCH ×2 (12:14→23:56)
[2018-07-18] MEDS ORDERED: MIDAZOLAM HCL 50 MG in SODIUM CHLORIDE 0.9% 240 ML IV PRN (15:30)
[2018-07-18 16:28] LABS: TROPONIN I < 0.015 ng/mL (0.000-0.045)
[2018-07-18] MEDS: SODIUM CHLORIDE FLUSH 10ML SYR IVF SCH (21:34)
[2018-07-18] MEDS: PROPOFOL 100 ML IV PRN (21:47)
[2018-07-19] MEDS: PROPOFOL 100 ML IV PRN ×4 (01:39→18:50)
[2018-07-19] MEDS: ALBUTEROL/IPRATROPIUM 2.5MG/0.5MG, 3 ML INLINE SCH ×6 (02:23→22:15)
[2018-07-19] MEDS: SODIUM CHLORIDE 0.9% 1,000 ML IV SCH (03:41)
[2018-07-19 04:25] VITALS: BP 117/64
[2018-07-19 04:28] LABS: BASOPHILS # (AUTO) 0.04 x10^3/uL (0-0.1); BASOPHILS % (AUTO) 0 % (0-1); EOSINOPHILS % (AUTO) 0 % (1-7); LYMPHOCYTES # (AUTO) 0.95 x10^3/uL (1-3.4); LYMPHOCYTES % (AUTO) 8 % (22-44); MD NO; MEAN CORPUSCULAR HEMOGLOBIN 24.1 pg (27.0-34.8); MEAN CORPUSCULAR HGB CONC 31.6 g/dL (32.4-35.8); MEAN CORPUSCULAR VOLUME 76.4 fL (80-100); MEAN PLATELET VOLUME 7.4 fL (7.4-10.4); MONOCYTES # (AUTO) 0.28 x10^3/uL (0.2-0.8); MONOCYTES % (AUTO) 2 % (2-9); NEUTROPHILS # (AUTO) 11.23 x10^3/uL (1.8-6.8); NEUTROPHILS % (AUTO) 90 % (42-75); PLATELET COUNT 361 x10^3/uL (130-400); RED BLOOD COUNT 3.79 x10^6/uL (3.82-5.3); RED CELL DISTRIBUTION WIDTH 19.2 % (9.6-15.2)
[2018-07-19 04:40] LABS: ALANINE AMINOTRANSFERASE 26 U/L (12-78); ALBUMIN 2.3 g/dL (3.4-5.0); ANION GAP 6 mmol/L (5-15); CHLORIDE 109 mmol/L (98-107); CREATININE 0.64 mg/dL (0.55-1.02)
[2018-07-19 04:45] LABS: ALKALINE PHOSPHATASE 100 U/L (45-117); BILIRUBIN,TOTAL 0.4 mg/dL (0.2-1.0); PREALBUMIN 12.8 mg/dL (20.0-40.0); TOTAL PROTEIN 5.2 g/dL (6.4-8.2)
[2018-07-19] MEDS: methylPREDNISolone SOD SUCC 40 MG/ML IV SCH ×4 (05:53→23:43)
[2018-07-19] MEDS: INSULIN LISPRO 100 UNITS/ML, PEN SQ-INSULIN SCH ×4 (06:43→20:16)
[2018-07-19] MEDS: CEFTRIAXONE PMX 1GM/50ML 50 ML IV SCH (08:46)
[2018-07-19] MEDS: SODIUM CHLORIDE FLUSH 10ML SYR IVF SCH ×2 (08:46→20:09)
[2018-07-19] MEDS: FAMOTIDINE 20 MG/2 ML IVPush SCH ×2 (08:46→20:09)
[2018-07-19] MEDS: AZITHROMYCIN 500 MG in SODIUM CHLORIDE 0.9% 250 ML IV SCH (08:46)
[2018-07-19] MEDS ORDERED: POTASSIUM CHLORIDE 10% 20 MEQ/15 ML UDC PO ONE (09:30)
[2018-07-19] MEDS ORDERED: POTASSIUM PHOSPHATE 44 MEQ in SODIUM CHLORIDE 0.9% 500 ML IV ONE (09:30)
[2018-07-19] MEDS ORDERED: VECURONIUM 10 MG ONE (09:33)
[2018-07-19] MEDS: FENTANYL PF 100 MCG/2ML IVPush PRN ×3 (09:49→20:09)
[2018-07-19] MEDS ORDERED: FUROSEMIDE 20 MG/2 ML ONE (09:50)
[2018-07-19] MEDS ORDERED: FUROSEMIDE 20 MG/2 ML IV ONE (10:00)
[2018-07-19] MEDS ORDERED: MIDAZOLAM 1 MG/ML, 5ML ONE (10:21)
[2018-07-19] MEDS ORDERED: VECURONIUM 10 MG IVPush ONE (11:30)
[2018-07-19] MEDS ORDERED: MIDAZOLAM 1 MG/ML, 2ML IVPush ONE (11:30)
[2018-07-19] MEDS: ENOXAPARIN 40 MG/0.4 ML SQ SCH (12:12)
--- NOTE | 2018-07-19 13:46 | NUR ---
TF Recommendations: Vital High Protein ON propofol: 50 ml/hr goal OFF propofol: 60 ml goal
[2018-07-19] MEDS ORDERED: METOLAZONE 5 MG TABLET PO ONE (17:30)
[2018-07-20] MEDS: PROPOFOL 100 ML IV PRN ×5 (01:17→22:00)
[2018-07-20] MEDS: ALBUTEROL/IPRATROPIUM 2.5MG/0.5MG, 3 ML INLINE SCH ×6 (02:34→22:55)
[2018-07-20 04:51] LABS: BASOPHILS # (AUTO) 0.11 x10^3/uL (0-0.1); BASOPHILS % (AUTO) 1 % (0-1); EOSINOPHILS # (AUTO) 0.02 x10^3/uL (0-0.4); EOSINOPHILS % (AUTO) 0 % (1-7); LYMPHOCYTES # (AUTO) 1.07 x10^3/uL (1-3.4); LYMPHOCYTES % (AUTO) 7 % (22-44); MD NO; MEAN CORPUSCULAR HEMOGLOBIN 24.9 pg (27.0-34.8); MEAN CORPUSCULAR HGB CONC 32.5 g/dL (32.4-35.8); MEAN CORPUSCULAR VOLUME 76.8 fL (80-100); MEAN PLATELET VOLUME 7.9 fL (7.4-10.4); MONOCYTES # (AUTO) 0.74 x10^3/uL (0.2-0.8); MONOCYTES % (AUTO) 5 % (2-9); NEUTROPHILS # (AUTO) 13.23 x10^3/uL (1.8-6.8); NEUTROPHILS % (AUTO) 87 % (42-75); PLATELET COUNT 360 x10^3/uL (130-400); RED BLOOD COUNT 3.77 x10^6/uL (3.82-5.3); RED CELL DISTRIBUTION WIDTH 18.7 % (9.6-15.2)
[2018-07-20] MEDS: methylPREDNISolone SOD SUCC 40 MG/ML IV SCH ×3 (05:36→17:39)
[2018-07-20] MEDS: FENTANYL PF 100 MCG/2ML IVPush PRN ×3 (06:20→17:39)
[2018-07-20] MEDS: INSULIN LISPRO 100 UNITS/ML, PEN SQ-INSULIN SCH ×4 (07:00→19:45)
[2018-07-20] MEDS: CEFTRIAXONE PMX 1GM/50ML 50 ML IV SCH (07:52)
[2018-07-20] MEDS: AZITHROMYCIN 500 MG in SODIUM CHLORIDE 0.9% 250 ML IV SCH (07:52)
[2018-07-20] MEDS ORDERED: ZIPRASIDONE 20 MG INJ IM PRN (09:00)
[2018-07-20] MEDS: SODIUM CHLORIDE FLUSH 10ML SYR IVF SCH ×2 (10:02→19:41)
[2018-07-20] MEDS: FAMOTIDINE 20 MG/2 ML IVPush SCH ×2 (10:02→19:40)
[2018-07-20] MEDS: ENOXAPARIN 40 MG/0.4 ML SQ SCH (13:24)
[2018-07-20] MEDS ORDERED: LIDOCAINE 2%, 6 ML JEL.PF.APP MM ONE (13:32)
[2018-07-20] MEDS ORDERED: MIDAZOLAM 1 MG/ML, 5ML ONE (13:47)
[2018-07-20] MEDS ORDERED: MIDAZOLAM 1 MG/ML, 2ML IVPush ONE ×2 (14:00→14:30)
[2018-07-20] MEDS ORDERED: VISIPAQUE 320MG/ML, 50ML BOTTLE ONE (14:35)
[2018-07-21] MEDS: methylPREDNISolone SOD SUCC 40 MG/ML IV SCH ×4 (00:39→17:20)
[2018-07-21] MEDS: PROPOFOL 100 ML IV PRN (01:14)
[2018-07-21] MEDS: ALBUTEROL/IPRATROPIUM 2.5MG/0.5MG, 3 ML INLINE SCH ×3 (02:30→10:30)
[2018-07-21 04:33] LABS: BASOPHILS % (AUTO) 0 % (0-1); EOSINOPHILS % (AUTO) 0 % (1-7); LYMPHOCYTES # (AUTO) 0.66 x10^3/uL (1-3.4); LYMPHOCYTES % (AUTO) 7 % (22-44); MD NO; MEAN CORPUSCULAR HEMOGLOBIN 24.7 pg (27.0-34.8); MEAN CORPUSCULAR HGB CONC 32.3 g/dL (32.4-35.8); MEAN CORPUSCULAR VOLUME 76.4 fL (80-100); MEAN PLATELET VOLUME 7.4 fL (7.4-10.4); MONOCYTES # (AUTO) 0.32 x10^3/uL (0.2-0.8); MONOCYTES % (AUTO) 3 % (2-9); NEUTROPHILS # (AUTO) 9.04 x10^3/uL (1.8-6.8); NEUTROPHILS % (AUTO) 90 % (42-75); PLATELET COUNT 381 x10^3/uL (130-400); RED BLOOD COUNT 3.75 x10^6/uL (3.82-5.3); RED CELL DISTRIBUTION WIDTH 18.5 % (9.6-15.2)
[2018-07-21] MEDS: INSULIN LISPRO 100 UNITS/ML, PEN SQ-INSULIN SCH ×4 (07:00→20:36)
[2018-07-21 08:01] LABS: ALANINE AMINOTRANSFERASE 45 U/L (12-78); ALBUMIN 2.5 g/dL (3.4-5.0); ANION GAP 5 mmol/L (5-15); CALCIUM 9.2 mg/dL (8.5-10.1); CHLORIDE 103 mmol/L (98-107); CREATININE 0.59 mg/dL (0.55-1.02)
[2018-07-21 08:03] LABS: ALKALINE PHOSPHATASE 90 U/L (45-117); BILIRUBIN,TOTAL 0.4 mg/dL (0.2-1.0); TOTAL PROTEIN 5.5 g/dL (6.4-8.2)
[2018-07-21] MEDS: CEFTRIAXONE PMX 1GM/50ML 50 ML IV SCH (08:05)
[2018-07-21] MEDS ORDERED: POTASSIUM CHLORIDE 10% 40 MEQ/30 ML UDC PO ONE (09:00)
[2018-07-21] MEDS: FAMOTIDINE 20 MG/2 ML IVPush SCH ×2 (09:21→20:37)
[2018-07-21] MEDS: SODIUM CHLORIDE FLUSH 10ML SYR IVF SCH ×2 (09:21→20:36)
[2018-07-21] MEDS: AZITHROMYCIN 500 MG in SODIUM CHLORIDE 0.9% 250 ML IV SCH (09:21)
[2018-07-21] MEDS ORDERED: FUROSEMIDE 20 MG/2 ML ONE (10:28)
[2018-07-21] MEDS ORDERED: FUROSEMIDE 20 MG/2 ML IV ONE (10:30)
[2018-07-21] MEDS: ENOXAPARIN 40 MG/0.4 ML SQ SCH (13:39)
[2018-07-21] MEDS: OXYcodone IR 5MG TABLET PO PRN (16:07)
[2018-07-21] MEDS: LIDODERM 5% PATCH TD PRN (17:20)
[2018-07-21] MEDS ORDERED: LABETALOL 5MG/ML, 20ML IVPush PRN (17:30)
[2018-07-21] MEDS ORDERED: LIDODERM 5% PATCH TD SCH (17:30)
[2018-07-21] MEDS ORDERED: ALBUTEROL/IPRATROPIUM 2.5MG/0.5MG, 3 ML INLINE SCH (21:00)
[2018-07-21] MEDS ORDERED: ALBUTEROL SULFATE 2.5 MG/3 ML NPPB PRN (22:00)
[2018-07-22] MEDS: methylPREDNISolone SOD SUCC 40 MG/ML IV SCH ×2 (00:40→05:48)
[2018-07-22 05:06] LABS: BASOPHILS # (AUTO) 0.02 x10^3/uL (0-0.1); BASOPHILS % (AUTO) 0 % (0-1); EOSINOPHILS % (AUTO) 0 % (1-7); LYMPHOCYTES # (AUTO) 1.23 x10^3/uL (1-3.4); LYMPHOCYTES % (AUTO) 10 % (22-44); MD NO; MEAN CORPUSCULAR HEMOGLOBIN 24.9 pg (27.0-34.8); MEAN CORPUSCULAR HGB CONC 32.5 g/dL (32.4-35.8); MEAN CORPUSCULAR VOLUME 76.6 fL (80-100); MONOCYTES # (AUTO) 0.69 x10^3/uL (0.2-0.8); MONOCYTES % (AUTO) 5 % (2-9); NEUTROPHILS # (AUTO) 10.77 x10^3/uL (1.8-6.8); NEUTROPHILS % (AUTO) 85 % (42-75); PLATELET COUNT 391 x10^3/uL (130-400); RED BLOOD COUNT 3.94 x10^6/uL (3.82-5.3); RED CELL DISTRIBUTION WIDTH 19.5 % (9.6-15.2)
[2018-07-22] MEDS: INSULIN LISPRO 100 UNITS/ML, PEN SQ-INSULIN SCH ×4 (07:00→19:50)
[2018-07-22 07:44] LABS: ALANINE AMINOTRANSFERASE 81 U/L (12-78); ALBUMIN 2.7 g/dL (3.4-5.0); ANION GAP 8 mmol/L (5-15); CALCIUM 9.1 mg/dL (8.5-10.1); CHLORIDE 102 mmol/L (98-107)
[2018-07-22 07:47] LABS: ALKALINE PHOSPHATASE 88 U/L (45-117); BILIRUBIN,TOTAL 0.6 mg/dL (0.2-1.0); CREATININE 0.61 mg/dL (0.55-1.02); TOTAL PROTEIN 5.9 g/dL (6.4-8.2)
[2018-07-22] MEDS: ALBUTEROL/IPRATROPIUM 2.5MG/0.5MG, 3 ML NPPB SCH ×2 (07:53→22:00)
[2018-07-22] MEDS: LOSARTAN 50MG TABLET PO SCH (08:25)
[2018-07-22] MEDS: FAMOTIDINE 20 MG/2 ML IVPush SCH (08:26)
[2018-07-22] MEDS: CEFTRIAXONE PMX 1GM/50ML 50 ML IV SCH (08:40)
[2018-07-22] MEDS: LIDODERM 5% PATCH TD PRN (09:34)
[2018-07-22] MEDS: AZITHROMYCIN 500 MG in SODIUM CHLORIDE 0.9% 250 ML IV SCH (09:38)
[2018-07-22] MEDS: SODIUM CHLORIDE FLUSH 10ML SYR IVF SCH ×2 (09:43→19:50)
[2018-07-22] MEDS ORDERED: POTASSIUM CHLORIDE 20 MEQ TAB.ER.PRT PO ONE (11:00)
[2018-07-22] MEDS: ENOXAPARIN 40 MG/0.4 ML SQ SCH (11:49)
[2018-07-22] MEDS ORDERED: LIDODERM 5% PATCH TD ONE (13:13)
[2018-07-22 13:50] VITALS: BP 165/103
[2018-07-22 14:40] VITALS: BP 158/95
[2018-07-22] MEDS: OXYcodone IR 5MG TABLET PO PRN ×2 (17:07→21:18)
[2018-07-22] MEDS ORDERED: LIDODERM 5% PATCH TD PRN (17:30)
[2018-07-22] MEDS: FAMOTIDINE 20 MG TABLET PO SCH (19:48)
[2018-07-22] MEDS: CEFDINIR 300 MG CAPSULE PO SCH (19:48)
[2018-07-22 19:58] VITALS: BP 123/77
[2018-07-23 00:40] VITALS: BP 138/85
[2018-07-23] MEDS: OXYcodone IR 5MG TABLET PO PRN ×3 (01:28→14:18)
[2018-07-23 04:54] LABS: BASOPHILS # (AUTO) 0.11 x10^3/uL (0-0.1); BASOPHILS % (AUTO) 1 % (0-1); EOSINOPHILS # (AUTO) 0.01 x10^3/uL (0-0.4); EOSINOPHILS % (AUTO) 0 % (1-7); LYMPHOCYTES # (AUTO) 2.95 x10^3/uL (1-3.4); LYMPHOCYTES % (AUTO) 25 % (22-44); MD NO; MEAN CORPUSCULAR HEMOGLOBIN 24.6 pg (27.0-34.8); MEAN CORPUSCULAR VOLUME 76.8 fL (80-100); MEAN PLATELET VOLUME 7.5 fL (7.4-10.4); MONOCYTES # (AUTO) 1.07 x10^3/uL (0.2-0.8); MONOCYTES % (AUTO) 9 % (2-9); NEUTROPHILS # (AUTO) 7.76 x10^3/uL (1.8-6.8); NEUTROPHILS % (AUTO) 65 % (42-75); PLATELET COUNT 431 x10^3/uL (130-400); RED BLOOD COUNT 4.01 x10^6/uL (3.82-5.3); RED CELL DISTRIBUTION WIDTH 19.2 % (9.6-15.2)
[2018-07-23 05:03] LABS: CHLORIDE 104 mmol/L (98-107)
[2018-07-23 05:12] LABS: ALANINE AMINOTRANSFERASE 63 U/L (12-78); ALBUMIN 2.6 g/dL (3.4-5.0); ALKALINE PHOSPHATASE 87 U/L (45-117); ANION GAP 3 mmol/L (5-15); BILIRUBIN,TOTAL 0.5 mg/dL (0.2-1.0); CALCIUM 9.1 mg/dL (8.5-10.1); CREATININE 0.61 mg/dL (0.55-1.02); TOTAL PROTEIN 5.5 g/dL (6.4-8.2)
[2018-07-23] MEDS: INSULIN LISPRO 100 UNITS/ML, PEN SQ-INSULIN SCH ×2 (07:00→11:00)
[2018-07-23] MEDS: LOSARTAN 50MG TABLET PO SCH (08:19)
[2018-07-23] MEDS: SODIUM CHLORIDE FLUSH 10ML SYR IVF SCH (08:19)
[2018-07-23] MEDS: CEFDINIR 300 MG CAPSULE PO SCH (08:19)
[2018-07-23] MEDS: FAMOTIDINE 20 MG TABLET PO SCH (08:19)
[2018-07-23] MEDS ORDERED: POTASSIUM CHLORIDE 20 MEQ TAB.ER.PRT PO ONE (08:30)
[2018-07-23 08:40] VITALS: BP 108/71
[2018-07-23] MEDS ORDERED: AZITHROMYCIN 500 MG TABLET PO SCH ×2 (09:00→13:00)
[2018-07-23] MEDS: ALBUTEROL/IPRATROPIUM 2.5MG/0.5MG, 3 ML NPPB SCH (10:59)
[2018-07-23 12:30] VITALS: BP 131/84
[2018-07-23] MEDS ORDERED: ERGOCALCIFEROL 50,000 UNIT CAPSULE PO SCH (12:30)
[2018-07-23] MEDS ORDERED: ACET325T14 PO (12:35)
[2018-07-23] MEDS ORDERED: LOSA50TA2 PO (12:35)
[2018-07-23] MEDS ORDERED: ERGO500017 PO (12:35)
[2018-07-23] MEDS ORDERED: POLY17PO5 PO (12:35)
[2018-07-23] MEDS ORDERED: OXYC5TAB3 PO (12:35)
[2018-07-23] MEDS ORDERED: LACT1TAB13 PO (12:35)
[2018-07-23] MEDS ORDERED: GABA300C10 PO (12:35)
[2018-07-23] MEDS ORDERED: FLUT1DIS3 INH (12:35)
[2018-07-23] MEDS ORDERED: PRED10TA PO (12:35)
[2018-07-23] MEDS ORDERED: DOXY100C15 PO (12:35)
[2018-07-23] MEDS ORDERED: TIOT18CA INH (12:35)
[2018-07-23] MEDS ORDERED: CEFD300C37 PO (12:35)
[2018-07-23] MEDS ORDERED: AZIT500T5 PO (12:40)
[2018-07-23] MEDS ORDERED: LIDO700A20 TD (12:46)
[2018-07-23] MEDS: ENOXAPARIN 40 MG/0.4 ML SQ SCH (13:11)
== END 2018-07-23 17:18 | DRG 853 ==
LOC: ED 04:21 → EDIP 08:08 → ICU 08:17 → CCU 07-20 14:27 → 3NW 07-22 14:09
PROVIDERS: ADMIT Hospitalist; ATTEND Hospitalist
PROC: 5A1945Z Respiratory Ventilation, 24-96 Consecutive Hours (ICD-10-PCS; principal; 2018-07-19)
PROC: 0B9H8ZX Drainage of Lung Lingula, Via Natural or Artificial Opening Endoscopic, Diagnostic (ICD-10-PCS; 2018-07-19)
PROC: 0BH17EZ Insertion of Endotracheal Airway into Trachea, Via Natural or Artificial Opening (ICD-10-PCS; 2018-07-19)
PROC: 0BC98ZZ Extirpation of Matter from Lingula Bronchus, Via Natural or Artificial Opening Endoscopic (ICD-10-PCS; 2018-07-19)
PROC: 0BC78ZZ Extirpation of Matter from Left Main Bronchus, Via Natural or Artificial Opening Endoscopic (ICD-10-PCS; 2018-07-19)
PROC: 0BC68ZZ Extirpation of Matter from Right Lower Lobe Bronchus, Via Natural or Artificial Opening Endoscopic (ICD-10-PCS; 2018-07-19)
PROC: 0BCB8ZZ Extirpation of Matter from Left Lower Lobe Bronchus, Via Natural or Artificial Opening Endoscopic (ICD-10-PCS; 2018-07-19)
PROC: 0B9J8ZX Drainage of Left Lower Lung Lobe, Via Natural or Artificial Opening Endoscopic, Diagnostic (ICD-10-PCS; 2018-07-19)
PROC: 0B9F8ZX Drainage of Right Lower Lung Lobe, Via Natural or Artificial Opening Endoscopic, Diagnostic (ICD-10-PCS; 2018-07-19)
DX: A41.9 Sepsis, unspecified organism (principal); E43 Unspecified severe protein-calorie malnutrition; G93.41 Metabolic encephalopathy; J15.9 Unspecified bacterial pneumonia; J96.21 Acute and chronic respiratory failure with hypoxia; J96.22 Acute and chronic respiratory failure with hypercapnia; J44.0 Chronic obstructive pulmonary disease with (acute) lower respiratory infection; J44.1 Chronic obstructive pulmonary disease with (acute) exacerbation; M48.54XA Collapsed vertebra, not elsewhere classified, thoracic region, initial encounter for fracture; M48.56XA Collapsed vertebra, not elsewhere classified, lumbar region, initial encounter for fracture; T17.590A Other foreign object in bronchus causing asphyxiation, initial encounter; Z99.11 Dependence on respirator [ventilator] status; J32.9 Chronic sinusitis, unspecified; S81.811A Laceration without foreign body, right lower leg, initial encounter; E11.9 Type 2 diabetes mellitus without complications; E55.9 Vitamin D deficiency, unspecified; E66.9 Obesity, unspecified; F17.200 Nicotine dependence, unspecified, uncomplicated; G89.4 Chronic pain syndrome; M54.9 Dorsalgia, unspecified; I10 Essential (primary) hypertension; I25.10 Atherosclerotic heart disease of native coronary artery without angina pectoris; I35.8 Other nonrheumatic aortic valve disorders; K21.9 Gastro-esophageal reflux disease without esophagitis; T38.0X5A Adverse effect of glucocorticoids and synthetic analogues, initial encounter; K44.9 Diaphragmatic hernia without obstruction or gangrene; X58.XXXA Exposure to other specified factors, initial encounter; Y93.89 Activity, other specified; Y92.89 Other specified places as the place of occurrence of the external cause; Z79.52 Long term (current) use of systemic steroids; Z99.81 Dependence on supplemental oxygen; Z79.899 Other long term (current) drug therapy; Z68.32 Body mass index [BMI] 32.0-32.9, adult
CPT/HCPCS: 31500; 36415; 36600; 74018; 74340; 84145; 99291; J3490; J7620; 31624; 70450; 71045; 80053; 81003; 82306; 82803; 82962; 83605; 83735; 83880; 84100; 84134; 84478; 84484; 85025; 86850; 86900; 87040; 87070; 87081; 87102; 87205; 90656; 93005; 93306; 94002; 94003; 94640; 96365; 96367; G0378; J0456; J0696; J1650; J2020; J2250; J2704; J3010; Q9967; J0330; J1815; J1940; J2920; J7030; J7040; J7050; J7512

== ENCOUNTER 2018-08-02 08:29 | Outpatient (CLI) | payer OTHER ==
[~2018-08-02 08:29] MED LIST changes: +ACET325T14 PO; +AZIT500T5 PO; +CEFD300C37 PO; +DOXY100C15 PO; +ERGO500017 PO; +FLUT1DIS3 INH; +GABA300C10 PO; +LACT1TAB13 PO; +LIDO700A20 TD; +LOSA50TA2 PO; +OXYC5TAB3 PO; +POLY17PO5 PO; +PRED10TA PO; +TIOT18CA INH
== END 2018-08-02 23:59 | disposition home or self-care (01) ==
LOC: WOUND 08:29
PROVIDERS: ATTEND Internal Medicine
DX: E11.622 Type 2 diabetes mellitus with other skin ulcer (principal); I87.331 Chronic venous hypertension (idiopathic) with ulcer and inflammation of right lower extremity; L97.212 Non-pressure chronic ulcer of right calf with fat layer exposed; E11.65 Type 2 diabetes mellitus with hyperglycemia; R60.0 Localized edema; G89.4 Chronic pain syndrome; E78.5 Hyperlipidemia, unspecified; M19.90 Unspecified osteoarthritis, unspecified site; K21.9 Gastro-esophageal reflux disease without esophagitis; J44.9 Chronic obstructive pulmonary disease, unspecified; I25.10 Atherosclerotic heart disease of native coronary artery without angina pectoris; E66.9 Obesity, unspecified; Z68.38 Body mass index [BMI] 38.0-38.9, adult; Z87.891 Personal history of nicotine dependence
CPT/HCPCS: 11042; 99215

== ENCOUNTER 2018-08-09 10:01 | Inpatient (IN) | payer OTHER ==
[~2018-08-09] VITALS: Ht 157.5 cm; Wt 87.3 kg
[2018-08-09] MEDS ORDERED: AMPICILLIN/SULBACTAM 3 GM in SODIUM CHLORIDE 0.9% 100 ML IV SCH (10:36)
[2018-08-09] MEDS ORDERED: L.E.T SOLUTION TP ONE ×2 (10:37→11:00)
[2018-08-09] MEDS ORDERED: ONDANSETRON 2MG/ML, 2ML ONE (10:44)
[2018-08-09] MEDS ORDERED: HYDROmorphone 1 MG/ML, 1ML INJ ONE ×2 (10:44→12:08)
[2018-08-09] MEDS: HYDROmorphone 1 MG/ML, 1ML INJ IVPush PRN ×2 (10:47→12:10)
--- NOTE | 2018-08-09 10:47 | NUR ---
TASK RN : FIRST CONTACT WITH PT. PAIN MEDICATIONS ADMINISTERED PER EMAR. LAB BEDSIDE.
[2018-08-09] MEDS ORDERED: ONDANSETRON 2MG/ML, 2ML IVPush ONE (11:00)
[2018-08-09] MEDS ORDERED: SODIUM CHLORIDE FLUSH 10ML SYR IVF ONE (11:00)
[2018-08-09 11:19] LABS: BASOPHILS # (AUTO) 0.02 x10^3/uL (0-0.1); BASOPHILS % (AUTO) 0 % (0-1); EOSINOPHILS # (AUTO) 0.02 x10^3/uL (0-0.4); EOSINOPHILS % (AUTO) 0 % (1-7); LYMPHOCYTES # (AUTO) 1.33 x10^3/uL (1-3.4); LYMPHOCYTES % (AUTO) 10 % (22-44); MD NO; MEAN CORPUSCULAR HEMOGLOBIN 24.2 pg (27.0-34.8); MEAN CORPUSCULAR HGB CONC 31.5 g/dL (32.4-35.8); MEAN CORPUSCULAR VOLUME 76.9 fL (80-100); MEAN PLATELET VOLUME 6.8 fL (7.4-10.4); MONOCYTES # (AUTO) 0.68 x10^3/uL (0.2-0.8); MONOCYTES % (AUTO) 5 % (2-9); NEUTROPHILS # (AUTO) 10.98 x10^3/uL (1.8-6.8); NEUTROPHILS % (AUTO) 84 % (42-75); PLATELET COUNT 648 x10^3/uL (130-400); RED BLOOD COUNT 4.14 x10^6/uL (3.82-5.3); RED CELL DISTRIBUTION WIDTH 19.2 % (9.6-15.2)
[2018-08-09 11:29] LABS: ALANINE AMINOTRANSFERASE 21 U/L (12-78); ALBUMIN 2.9 g/dL (3.4-5.0); ANION GAP 9 mmol/L (5-15); CALCIUM 9.3 mg/dL (8.5-10.1); CHLORIDE 103 mmol/L (98-107); CREATININE 0.69 mg/dL (0.55-1.02)
[2018-08-09 11:32] LABS: ALKALINE PHOSPHATASE 145 U/L (45-117); BILIRUBIN,TOTAL 0.5 mg/dL (0.2-1.0); TOTAL PROTEIN 6.6 g/dL (6.4-8.2)
[2018-08-09] MEDS ORDERED: CALC3.7S5 INH (12:30)
[2018-08-09] MEDS ORDERED: CLIN150C14 PO (12:30)
[2018-08-09] MEDS ORDERED: [UNRECOGNIZED DRUG - OTHER] (12:30)
[2018-08-09] MEDS ORDERED: POTASSIUM CHLORIDE 20 MEQ TAB.ER.PRT PO ONE (12:30)
--- NOTE | 2018-08-09 12:46 | NUR ---
REPORT GIVEN TO FAYE CHILDRESS, PT READY FOR TRANSPORT TO FLOOR
[2018-08-09 13:15] VITALS: BP 127/84
[2018-08-09] MEDS: VANCOMYCIN PER PHARMACY MC SCH (14:00)
[2018-08-09] MEDS ORDERED: ACETAMINOPHEN 325 MG TABLET PO PRN ×2 (14:00)
[2018-08-09] MEDS ORDERED: KETOROLAC 30 MG/1 ML IM PRN (14:00)
[2018-08-09] MEDS ORDERED: TEMPLATE NON-FORMULARY MED. (Prednisone** 10 MG) PO SCH (14:00)
[2018-08-09] MEDS: IPRATROPIUM 0.5 MG/2.5 ML INHA NPPB SCH ×2 (14:30→22:35)
[2018-08-09] MEDS ORDERED: PHARMACOKINETIC MONITORING MC PRN (15:00)
[2018-08-09] MEDS: ALBUTEROL SULFATE 2.5 MG/3 ML NPPB SCH ×2 (15:00→22:35)
[2018-08-09 15:09] LABS: HCT (SEDRATE) 31.8 % (34.6-47.8)
[2018-08-09] MEDS: HYDROcodone/APAP 5/325 TABLET PO PRN ×2 (15:30→21:59)
[2018-08-09] MEDS: GABAPENTIN 300 MG CAPSULE PO SCH ×2 (15:31→20:35)
[2018-08-09] MEDS: ERGOCALCIFEROL 50,000 UNIT CAPSULE PO SCH (15:31)
[2018-08-09] MEDS: LIDODERM 5% PATCH TD PRN (15:31)
[2018-08-09] MEDS: POTASSIUM ACETATE 20 MEQ in SODIUM CHLORIDE 0.9% 1,000 ML IV SCH (15:32)
[2018-08-09] MEDS ORDERED: GLUCAGON 1 MG IM PRN (16:00)
[2018-08-09] MEDS ORDERED: DEXTROSE 4 GM TAB.CHEW PO PRN (16:00)
[2018-08-09] MEDS: INSULIN LISPRO 100 UNITS/ML, PEN SQ-INSULIN SCH ×2 (16:00→20:35)
[2018-08-09] MEDS ORDERED: DEXTROSE 50%, 50ML SYRINGE IVPush PRN (16:00)
[2018-08-09] MEDS: ENOXAPARIN 40 MG/0.4 ML SQ SCH (16:01)
[2018-08-09] MEDS: CEFTRIAXONE PMX 1GM/50ML 50 ML IVPB SCH (16:01)
[2018-08-09] MEDS ORDERED: GADOBUTROL 10 MMOL/10 ML PFS ONE (17:40)
[2018-08-09] MEDS: OXYcodone/APAP 5/325MG TABLET PO PRN (19:07)
[2018-08-09] MEDS: VANCOMYCIN 1,800 MG in SODIUM CHLORIDE 0.9% 250 ML IV SCH (19:32)
[2018-08-09 19:48] VITALS: BP 136/92
[2018-08-09] MEDS: TIZANIDINE 2MG TABLET PO SCH (20:35)
[2018-08-09] MEDS: metFORMIN 500 MG TABLET PO SCH (20:35)
[2018-08-09] MEDS: SODIUM CHLORIDE FLUSH 10ML SYR IVF SCH (20:36)
[2018-08-09] MEDS: BUDESONIDE 0.5 MG/2 ML INHA NPPB SCH (22:35)
[2018-08-10 01:54] VITALS: BP 134/88
[2018-08-10] MEDS: IPRATROPIUM 0.5 MG/2.5 ML INHA NPPB SCH (02:30)
[2018-08-10] MEDS: OXYcodone/APAP 5/325MG TABLET PO PRN ×2 (03:35→08:43)
[2018-08-10] MEDS: ALBUTEROL SULFATE 2.5 MG/3 ML NPPB SCH (05:00)
[2018-08-10 05:39] LABS: MEAN CORPUSCULAR HEMOGLOBIN 25.1 pg (27.0-34.8); MEAN CORPUSCULAR HGB CONC 32.5 g/dL (32.4-35.8); MEAN CORPUSCULAR VOLUME 77.2 fL (80-100); MEAN PLATELET VOLUME 6.7 fL (7.4-10.4); PLATELET COUNT 579 x10^3/uL (130-400); RED BLOOD COUNT 3.93 x10^6/uL (3.82-5.3); RED CELL DISTRIBUTION WIDTH 18.6 % (9.6-15.2)
[2018-08-10 06:05] LABS: BASOPHILS # (AUTO) 0.03 x10^3/uL (0-0.1); BASOPHILS % (AUTO) 0 % (0-1); CHLORIDE 105 mmol/L (98-107); EOSINOPHILS % (AUTO) 0 % (1-7); LYMPHOCYTES # (AUTO) 1.74 x10^3/uL (1-3.4); LYMPHOCYTES % (AUTO) 10 % (22-44); MD SCAN; MONOCYTES # (AUTO) 1.36 x10^3/uL (0.2-0.8); MONOCYTES % (AUTO) 7 % (2-9); NEUTROPHILS # (AUTO) 15.25 x10^3/uL (1.8-6.8); NEUTROPHILS % (AUTO) 83 % (42-75)
[2018-08-10 06:17] LABS: ANION GAP 8 mmol/L (5-15); CALCIUM 8.8 mg/dL (8.5-10.1); CREATININE 0.64 mg/dL (0.55-1.02)
[2018-08-10] MEDS: INSULIN LISPRO 100 UNITS/ML, PEN SQ-INSULIN SCH ×4 (07:00→20:59)
[2018-08-10 07:21] VITALS: BP 130/84
[2018-08-10] MEDS: POTASSIUM CHLORIDE 20 MEQ TAB.ER.PRT PO SCH (08:43)
[2018-08-10] MEDS: FUROSEMIDE 40 MG TABLET PO SCH (08:43)
[2018-08-10] MEDS: metFORMIN 500 MG TABLET PO SCH ×2 (08:43→20:59)
[2018-08-10] MEDS: OMEPRAZOLE 20 MG CAPSULE.DR PO SCH (08:43)
[2018-08-10] MEDS: LOSARTAN 50MG TABLET PO SCH (08:43)
[2018-08-10] MEDS: GABAPENTIN 300 MG CAPSULE PO SCH ×3 (08:43→20:59)
[2018-08-10] MEDS: VANCOMYCIN PER PHARMACY MC SCH (08:44)
[2018-08-10] MEDS: SODIUM CHLORIDE FLUSH 10ML SYR IVF SCH ×2 (08:44→21:06)
[2018-08-10] MEDS: BUDESONIDE 0.5 MG/2 ML INHA NPPB SCH ×2 (09:00→19:08)
[2018-08-10] MEDS: CALCITONIN NASAL 200 UNITS/0.09ML, 3.7ML NAS SCH (10:50)
[2018-08-10] MEDS: KETOROLAC 30 MG/1 ML IV PRN ×2 (12:08→20:58)
[2018-08-10] MEDS: POTASSIUM ACETATE 20 MEQ in SODIUM CHLORIDE 0.9% 1,000 ML IV SCH (12:12)
[2018-08-10 14:11] VITALS: BP 136/79
[2018-08-10] MEDS: ENOXAPARIN 40 MG/0.4 ML SQ SCH (14:43)
[2018-08-10] MEDS: HYDROcodone/APAP 5/325 TABLET PO PRN (14:43)
[2018-08-10 15:16] LABS: CLOSTRIDIUM DIFFICILE ANTIGEN NEGATIVE; CLOSTRIDIUM DIFFICILE TOXIN NEGATIVE (Negative)
[2018-08-10] MEDS: CEFTRIAXONE PMX 1GM/50ML 50 ML IVPB SCH (15:41)
[2018-08-10] MEDS: ALBUTEROL SULFATE 2.5 MG/3 ML NPPB PRN (19:08)
[2018-08-10] MEDS: VANCOMYCIN 1,800 MG in SODIUM CHLORIDE 0.9% 250 ML IV SCH (19:35)
[2018-08-10 19:52] VITALS: BP 95/63
[2018-08-10] MEDS: TIZANIDINE 2MG TABLET PO SCH (20:58)
[2018-08-10] MEDS: LIDODERM 5% PATCH TD PRN (21:07)
[2018-08-11 01:30] VITALS: BP 95/60
[2018-08-11] MEDS: POTASSIUM ACETATE 20 MEQ in SODIUM CHLORIDE 0.9% 1,000 ML IV SCH ×2 (02:02→21:00)
[2018-08-11] MEDS: BACLOFEN 10 MG TABLET PO PRN ×2 (05:02→14:15)
[2018-08-11 06:23] LABS: MEAN CORPUSCULAR HEMOGLOBIN 24.9 pg (27.0-34.8); MEAN CORPUSCULAR HGB CONC 32.2 g/dL (32.4-35.8); MEAN CORPUSCULAR VOLUME 77.3 fL (80-100); MEAN PLATELET VOLUME 6.6 fL (7.4-10.4); PLATELET COUNT 422 x10^3/uL (130-400); RED BLOOD COUNT 3.66 x10^6/uL (3.82-5.3); RED CELL DISTRIBUTION WIDTH 18.7 % (9.6-15.2)
[2018-08-11] MEDS: OXYcodone/APAP 7.5/325MG TABLET PO PRN ×4 (06:26→19:08)
[2018-08-11 06:35] LABS: ANION GAP 5 mmol/L (5-15); CALCIUM 8.3 mg/dL (8.5-10.1); CHLORIDE 108 mmol/L (98-107); CREATININE 0.55 mg/dL (0.55-1.02)
[2018-08-11] MEDS: BUDESONIDE 0.5 MG/2 ML INHA NPPB SCH ×2 (06:42→21:00)
[2018-08-11 06:46] LABS: BASOPHILS # (AUTO) 0.11 x10^3/uL (0-0.1); BASOPHILS % (AUTO) 1 % (0-1); EOSINOPHILS % (AUTO) 0 % (1-7); LYMPHOCYTES # (AUTO) 2.04 x10^3/uL (1-3.4); LYMPHOCYTES % (AUTO) 10 % (22-44); MD SCAN; MONOCYTES # (AUTO) 1.28 x10^3/uL (0.2-0.8); MONOCYTES % (AUTO) 6 % (2-9); NEUTROPHILS # (AUTO) 16.74 x10^3/uL (1.8-6.8); NEUTROPHILS % (AUTO) 83 % (42-75)
[2018-08-11] MEDS: INSULIN LISPRO 100 UNITS/ML, PEN SQ-INSULIN SCH ×4 (07:22→20:52)
[2018-08-11 07:36] VITALS: BP 135/84
[2018-08-11] MEDS: VANCOMYCIN PER PHARMACY MC SCH (09:00)
[2018-08-11] MEDS: GABAPENTIN 300 MG CAPSULE PO SCH ×3 (09:45→20:51)
[2018-08-11] MEDS: CALCITONIN NASAL 200 UNITS/0.09ML, 3.7ML NAS SCH (09:45)
[2018-08-11] MEDS: FUROSEMIDE 40 MG TABLET PO SCH (09:45)
[2018-08-11] MEDS: LOSARTAN 50MG TABLET PO SCH (09:45)
[2018-08-11] MEDS: POTASSIUM CHLORIDE 20 MEQ TAB.ER.PRT PO SCH (09:45)
[2018-08-11] MEDS: metFORMIN 500 MG TABLET PO SCH ×2 (09:45→20:51)
[2018-08-11] MEDS: OMEPRAZOLE 20 MG CAPSULE.DR PO SCH (09:45)
[2018-08-11] MEDS: SODIUM CHLORIDE FLUSH 10ML SYR IVF SCH ×2 (09:58→21:01)
[2018-08-11] MEDS: MEROPENEM 1 GM in SODIUM CHLORIDE 0.9% 100 ML IV SCH ×2 (11:50→18:14)
[2018-08-11 13:18] VITALS: BP 132/79
[2018-08-11] MEDS: ENOXAPARIN 40 MG/0.4 ML SQ SCH (14:18)
[2018-08-11] MEDS: ALBUTEROL SULFATE 2.5 MG/3 ML NPPB PRN (15:18)
[2018-08-11] MEDS: VANCOMYCIN 1,800 MG in SODIUM CHLORIDE 0.9% 250 ML IV SCH (19:08)
[2018-08-11 20:17] VITALS: BP 134/86
[2018-08-11] MEDS: HYDROcodone/APAP 5/325 TABLET PO PRN (20:51)
[2018-08-11] MEDS: TIZANIDINE 2MG TABLET PO SCH (20:51)
[2018-08-12 00:54] VITALS: BP 94/64
[2018-08-12] MEDS: HYDROcodone/APAP 5/325 TABLET PO PRN ×3 (01:54→14:25)
[2018-08-12] MEDS: MEROPENEM 1 GM in SODIUM CHLORIDE 0.9% 100 ML IV SCH ×3 (01:54→18:13)
[2018-08-12 06:35] LABS: MEAN CORPUSCULAR HEMOGLOBIN 24.9 pg (27.0-34.8); MEAN CORPUSCULAR HGB CONC 32.4 g/dL (32.4-35.8); MEAN CORPUSCULAR VOLUME 76.8 fL (80-100); MEAN PLATELET VOLUME 6.7 fL (7.4-10.4); PLATELET COUNT 545 x10^3/uL (130-400); RED BLOOD COUNT 3.31 x10^6/uL (3.82-5.3)
[2018-08-12 06:41] VITALS: BP 98/67
[2018-08-12 06:45] LABS: ANION GAP 4 mmol/L (5-15); CALCIUM 8.4 mg/dL (8.5-10.1); CHLORIDE 107 mmol/L (98-107); CREATININE 0.43 mg/dL (0.55-1.02)
[2018-08-12 06:49] LABS: BASOPHILS # (AUTO) 0.04 x10^3/uL (0-0.1); BASOPHILS % (AUTO) 0 % (0-1); EOSINOPHILS # (AUTO) 0.02 x10^3/uL (0-0.4); EOSINOPHILS % (AUTO) 0 % (1-7); LYMPHOCYTES # (AUTO) 2.93 x10^3/uL (1-3.4); LYMPHOCYTES % (AUTO) 17 % (22-44); MD SCAN; MONOCYTES # (AUTO) 1.02 x10^3/uL (0.2-0.8); MONOCYTES % (AUTO) 6 % (2-9); NEUTROPHILS # (AUTO) 13.58 x10^3/uL (1.8-6.8); NEUTROPHILS % (AUTO) 77 % (42-75)
[2018-08-12] MEDS: FUROSEMIDE 40 MG TABLET PO SCH (07:56)
[2018-08-12] MEDS: LOSARTAN 50MG TABLET PO SCH (07:56)
[2018-08-12] MEDS: INSULIN LISPRO 100 UNITS/ML, PEN SQ-INSULIN SCH ×4 (08:11→19:51)
[2018-08-12] MEDS: SODIUM CHLORIDE FLUSH 10ML SYR IVF SCH ×2 (08:12→20:05)
[2018-08-12] MEDS: GABAPENTIN 300 MG CAPSULE PO SCH ×3 (08:12→20:05)
[2018-08-12] MEDS: VANCOMYCIN PER PHARMACY MC SCH (08:12)
[2018-08-12] MEDS: OMEPRAZOLE 20 MG CAPSULE.DR PO SCH (08:12)
[2018-08-12] MEDS: metFORMIN 500 MG TABLET PO SCH ×2 (08:12→20:05)
[2018-08-12] MEDS: POTASSIUM CHLORIDE 20 MEQ TAB.ER.PRT PO SCH (08:12)
[2018-08-12] MEDS: BUDESONIDE 0.5 MG/2 ML INHA NPPB SCH ×2 (09:00→19:57)
[2018-08-12] MEDS: CALCITONIN NASAL 200 UNITS/0.09ML, 3.7ML NAS SCH (09:06)
[2018-08-12] MEDS: OXYcodone/APAP 7.5/325MG TABLET PO PRN ×3 (10:12→22:31)
[2018-08-12] MEDS: POTASSIUM ACETATE 20 MEQ in SODIUM CHLORIDE 0.9% 1,000 ML IV SCH (12:08)
[2018-08-12 14:15] VITALS: BP 102/68
[2018-08-12] MEDS: ENOXAPARIN 40 MG/0.4 ML SQ SCH (14:25)
[2018-08-12] MEDS: BACLOFEN 10 MG TABLET PO PRN (14:25)
[2018-08-12] MEDS: ALBUTEROL SULFATE 2.5 MG/3 ML NPPB SCH ×2 (15:00→19:57)
[2018-08-12 18:57] VITALS: BP 112/71
[2018-08-12] MEDS: VANCOMYCIN 1,800 MG in SODIUM CHLORIDE 0.9% 250 ML IV SCH ×2 (20:05→20:44)
[2018-08-12] MEDS: TIZANIDINE 2MG TABLET PO SCH (20:10)
[2018-08-13 01:47] VITALS: BP 127/73
[2018-08-13] MEDS: ALBUTEROL SULFATE 2.5 MG/3 ML NPPB SCH ×4 (02:22→20:00)
[2018-08-13] MEDS: MEROPENEM 1 GM in SODIUM CHLORIDE 0.9% 100 ML IV SCH ×3 (02:25→18:43)
[2018-08-13] MEDS: OXYcodone/APAP 7.5/325MG TABLET PO PRN ×5 (02:32→20:47)
[2018-08-13] MEDS: INSULIN LISPRO 100 UNITS/ML, PEN SQ-INSULIN SCH ×4 (07:00→20:47)
[2018-08-13 07:10] VITALS: BP 122/76
[2018-08-13] MEDS: BUDESONIDE 0.5 MG/2 ML INHA NPPB SCH ×2 (07:24→20:00)
[2018-08-13] MEDS: POTASSIUM ACETATE 20 MEQ in SODIUM CHLORIDE 0.9% 1,000 ML IV SCH (07:30)
[2018-08-13 08:23] LABS: MEAN CORPUSCULAR HEMOGLOBIN 24.5 pg (27.0-34.8); MEAN CORPUSCULAR HGB CONC 31.6 g/dL (32.4-35.8); MEAN CORPUSCULAR VOLUME 77.4 fL (80-100); MEAN PLATELET VOLUME 6.4 fL (7.4-10.4); PLATELET COUNT 606 x10^3/uL (130-400); RED BLOOD COUNT 3.57 x10^6/uL (3.82-5.3); RED CELL DISTRIBUTION WIDTH 18.5 % (9.6-15.2)
[2018-08-13] MEDS: HYDROcodone/APAP 5/325 TABLET PO PRN (08:27)
[2018-08-13 08:35] LABS: ALANINE AMINOTRANSFERASE 15 U/L (12-78); ALBUMIN 2.2 g/dL (3.4-5.0); CALCIUM 9.1 mg/dL (8.5-10.1); CHLORIDE 108 mmol/L (98-107); CREATININE 0.49 mg/dL (0.55-1.02)
[2018-08-13 08:37] LABS: ALKALINE PHOSPHATASE 115 U/L (45-117); BILIRUBIN,TOTAL 0.4 mg/dL (0.2-1.0); TOTAL PROTEIN 5.9 g/dL (6.4-8.2)
[2018-08-13 08:48] LABS: ANION GAP 3 mmol/L (5-15)
[2018-08-13] MEDS: VANCOMYCIN PER PHARMACY MC SCH (09:00)
[2018-08-13] MEDS: SODIUM CHLORIDE FLUSH 10ML SYR IVF SCH ×2 (09:00→20:48)
[2018-08-13] MEDS: GABAPENTIN 300 MG CAPSULE PO SCH ×3 (09:54→20:47)
[2018-08-13] MEDS: POTASSIUM CHLORIDE 20 MEQ TAB.ER.PRT PO SCH (09:54)
[2018-08-13] MEDS: LOSARTAN 50MG TABLET PO SCH (09:54)
[2018-08-13] MEDS: metFORMIN 500 MG TABLET PO SCH ×2 (09:55→20:47)
[2018-08-13] MEDS: FUROSEMIDE 40 MG TABLET PO SCH (09:55)
[2018-08-13 10:46] LABS: BASOPHILS # (AUTO) 0.04 x10^3/uL (0-0.1); BASOPHILS % (AUTO) 0 % (0-1); EOSINOPHILS # (AUTO) 0.04 x10^3/uL (0-0.4); EOSINOPHILS % (AUTO) 0 % (1-7); LYMPHOCYTES # (AUTO) 2.67 x10^3/uL (1-3.4); LYMPHOCYTES % (AUTO) 19 % (22-44); MD MORPH REVIEW ONLY; MONOCYTES # (AUTO) 0.75 x10^3/uL (0.2-0.8); MONOCYTES % (AUTO) 5 % (2-9); NEUTROPHILS # (AUTO) 10.83 x10^3/uL (1.8-6.8); NEUTROPHILS % (AUTO) 76 % (42-75)
[2018-08-13 10:47] LABS: ANISOCYTOSIS 1+; HYPOCHROMIA 1+; OVALOCYTES 1+
[2018-08-13 10:48] LABS: <PLATELET ESTIMATE> INCREASED; <PLT MORPHOLOGY> NORMAL PLT MORPH; STOMATOCYTES 1+
[2018-08-13] MEDS ORDERED: CEFT2PIG IV (11:00)
[2018-08-13] MEDS ORDERED: MUPI22OI2 TP (11:00)
[2018-08-13] MEDS ORDERED: SULF1TAB24 PO (11:00)
[2018-08-13] MEDS ORDERED: OMEP-110 PO (11:00)
[2018-08-13] MEDS ORDERED: Maalox/Hyoscyamine/Lidocaine PO (11:00)
[2018-08-13] MEDS ORDERED: ACET325T14 PO (11:00)
[2018-08-13] MEDS ORDERED: SUCR1ORA11 PO (11:02)
[2018-08-13] MEDS ORDERED: PRED10TA PO (11:08)
[2018-08-13] MEDS ORDERED: FURO40TA6 PO (11:12)
[2018-08-13] MEDS: CALCITONIN NASAL 200 UNITS/0.09ML, 3.7ML NAS SCH (11:12)
[2018-08-13] MEDS ORDERED: POTA20PA25 PO (11:12)
[2018-08-13] MEDS: MAALOX/HYOSCYAMINE/LIDOCAINE 45 ML BTL PO PRN (11:13)
[2018-08-13 13:22] VITALS: BP 119/72
[2018-08-13] MEDS: MUPIROCIN OINT 2%, 22GM TP SCH (13:48)
[2018-08-13] MEDS: VANCOMYCIN 1,800 MG in SODIUM CHLORIDE 0.9% 250 ML IV SCH (13:52)
[2018-08-13] MEDS: ENOXAPARIN 40 MG/0.4 ML SQ SCH (16:09)
[2018-08-13 20:12] VITALS: BP 101/65
[2018-08-13] MEDS: TIZANIDINE 2MG TABLET PO SCH (20:47)
[2018-08-13] MEDS: OMEPRAZOLE 20 MG CAPSULE.DR PO SCH (20:47)
[2018-08-14] MEDS: MEROPENEM 1 GM in SODIUM CHLORIDE 0.9% 100 ML IV SCH ×3 (02:25→17:39)
[2018-08-14 02:27] VITALS: BP 129/69
[2018-08-14] MEDS: HYDROcodone/APAP 5/325 TABLET PO PRN ×5 (02:30→20:21)
[2018-08-14] MEDS: ALBUTEROL SULFATE 2.5 MG/3 ML NPPB SCH ×4 (03:15→21:40)
[2018-08-14] MEDS: VANCOMYCIN 1,800 MG in SODIUM CHLORIDE 0.9% 250 ML IV SCH ×2 (05:59→23:39)
[2018-08-14] MEDS: MUPIROCIN OINT 2%, 22GM TP SCH ×2 (06:00→16:56)
[2018-08-14] MEDS: INSULIN LISPRO 100 UNITS/ML, PEN SQ-INSULIN SCH ×4 (07:00→19:53)
[2018-08-14] MEDS: BUDESONIDE 0.5 MG/2 ML INHA NPPB SCH ×2 (07:17→21:40)
[2018-08-14 08:23] VITALS: BP 103/62
[2018-08-14] MEDS: SODIUM CHLORIDE FLUSH 10ML SYR IVF SCH ×2 (08:34→20:22)
[2018-08-14] MEDS: metFORMIN 500 MG TABLET PO SCH ×2 (08:35→20:21)
[2018-08-14] MEDS: CALCITONIN NASAL 200 UNITS/0.09ML, 3.7ML NAS SCH (08:35)
[2018-08-14] MEDS: OMEPRAZOLE 20 MG CAPSULE.DR PO SCH ×2 (08:35→20:21)
[2018-08-14] MEDS: POTASSIUM CHLORIDE 20 MEQ TAB.ER.PRT PO SCH (08:35)
[2018-08-14] MEDS: GABAPENTIN 300 MG CAPSULE PO SCH ×3 (08:36→20:22)
[2018-08-14] MEDS: LOSARTAN 50MG TABLET PO SCH (08:40)
[2018-08-14] MEDS: VANCOMYCIN PER PHARMACY MC SCH (09:00)
[2018-08-14] MEDS: FUROSEMIDE 40 MG TABLET PO SCH (12:07)
[2018-08-14 13:13] VITALS: BP 123/77
[2018-08-14] MEDS: ENOXAPARIN 40 MG/0.4 ML SQ SCH (16:48)
[2018-08-14] MEDS: TIZANIDINE 2MG TABLET PO SCH (20:22)
[2018-08-14 21:27] VITALS: BP 117/71
[2018-08-14 23:39] VITALS: BP 106/70
[2018-08-15] MEDS: MEROPENEM 1 GM in SODIUM CHLORIDE 0.9% 100 ML IV SCH ×3 (02:19→17:39)
[2018-08-15 02:21] VITALS: BP 138/84
[2018-08-15] MEDS: MAALOX/HYOSCYAMINE/LIDOCAINE 45 ML BTL PO PRN (03:14)
[2018-08-15] MEDS: HYDROcodone/APAP 5/325 TABLET PO PRN ×4 (04:14→22:36)
[2018-08-15] MEDS: MUPIROCIN OINT 2%, 22GM TP SCH ×2 (05:54→17:39)
[2018-08-15] MEDS: INSULIN LISPRO 100 UNITS/ML, PEN SQ-INSULIN SCH ×4 (07:00→20:42)
[2018-08-15 07:45] VITALS: BP 132/94
[2018-08-15] MEDS: VANCOMYCIN PER PHARMACY MC SCH (09:00)
[2018-08-15] MEDS: GABAPENTIN 300 MG CAPSULE PO SCH ×3 (09:03→20:49)
[2018-08-15] MEDS: LOSARTAN 50MG TABLET PO SCH (09:03)
[2018-08-15] MEDS: OMEPRAZOLE 20 MG CAPSULE.DR PO SCH ×2 (09:03→20:48)
[2018-08-15] MEDS: metFORMIN 500 MG TABLET PO SCH ×2 (09:04→20:48)
[2018-08-15] MEDS: POTASSIUM CHLORIDE 20 MEQ TAB.ER.PRT PO SCH (09:04)
[2018-08-15] MEDS: FUROSEMIDE 40 MG TABLET PO SCH (09:04)
[2018-08-15] MEDS: SODIUM CHLORIDE FLUSH 10ML SYR IVF SCH ×2 (10:14→20:48)
[2018-08-15] MEDS: ALBUTEROL SULFATE 2.5 MG/3 ML NPPB SCH ×4 (10:30→22:09)
[2018-08-15] MEDS: BUDESONIDE 0.5 MG/2 ML INHA NPPB SCH ×2 (10:30→21:00)
[2018-08-15] MEDS ORDERED: BISACODYL 10 MG SUPP PR PRN (11:00)
[2018-08-15] MEDS: SENNA/DOCUSATE TABLET PO PRN ×2 (11:42→20:48)
[2018-08-15] MEDS: CALCITONIN NASAL 200 UNITS/0.09ML, 3.7ML NAS SCH (11:42)
[2018-08-15] MEDS: ENOXAPARIN 40 MG/0.4 ML SQ SCH (14:00)
[2018-08-15 14:10] VITALS: BP 120/80
[2018-08-15] MEDS: VANCOMYCIN 1,800 MG in SODIUM CHLORIDE 0.9% 250 ML IV SCH (18:17)
[2018-08-15 20:00] VITALS: BP 105/61
[2018-08-15] MEDS: TIZANIDINE 2MG TABLET PO SCH (20:48)
[2018-08-15] MEDS: ONDANSETRON 2MG/ML, 2ML IVPush PRN (20:54)
[2018-08-16] MEDS: MEROPENEM 1 GM in SODIUM CHLORIDE 0.9% 100 ML IV SCH ×3 (01:57→18:01)
[2018-08-16] MEDS: ALBUTEROL SULFATE 2.5 MG/3 ML NPPB SCH ×4 (03:00→20:17)
[2018-08-16 03:16] VITALS: BP 119/86
[2018-08-16] MEDS: HYDROcodone/APAP 5/325 TABLET PO PRN ×3 (03:57→19:58)
[2018-08-16] MEDS: INSULIN LISPRO 100 UNITS/ML, PEN SQ-INSULIN SCH ×4 (07:00→21:00)
[2018-08-16] MEDS ORDERED: LACTULOSE 3.3 GM/5 ML ORAL.SOL RC ONE ×2 (07:30→13:00)
[2018-08-16 08:27] VITALS: BP 108/73
[2018-08-16] MEDS ORDERED: POLY17PO5 PO (08:58)
[2018-08-16] MEDS: VANCOMYCIN PER PHARMACY MC SCH (09:00)
[2018-08-16] MEDS: BUDESONIDE 0.5 MG/2 ML INHA NPPB SCH ×2 (09:00→20:17)
[2018-08-16] MEDS: LOSARTAN 50MG TABLET PO SCH (09:41)
[2018-08-16] MEDS: POTASSIUM CHLORIDE 20 MEQ TAB.ER.PRT PO SCH (09:41)
[2018-08-16] MEDS: FUROSEMIDE 40 MG TABLET PO SCH (09:41)
[2018-08-16] MEDS: metFORMIN 500 MG TABLET PO SCH ×2 (09:41→22:49)
[2018-08-16] MEDS: OMEPRAZOLE 20 MG CAPSULE.DR PO SCH ×2 (09:41→22:50)
[2018-08-16] MEDS: SODIUM CHLORIDE FLUSH 10ML SYR IVF SCH ×2 (09:42→21:00)
[2018-08-16] MEDS: CALCITONIN NASAL 200 UNITS/0.09ML, 3.7ML NAS SCH (09:42)
[2018-08-16] MEDS: GABAPENTIN 300 MG CAPSULE PO SCH ×3 (09:42→22:50)
[2018-08-16] MEDS: MUPIROCIN OINT 2%, 22GM TP SCH ×2 (09:42→18:01)
[2018-08-16] MEDS: VANCOMYCIN 1,800 MG in SODIUM CHLORIDE 0.9% 250 ML IV SCH (12:40)
[2018-08-16] MEDS: SENNA/DOCUSATE TABLET PO PRN (12:41)
[2018-08-16] MEDS: ERGOCALCIFEROL 50,000 UNIT CAPSULE PO SCH (14:00)
[2018-08-16] MEDS: ENOXAPARIN 40 MG/0.4 ML SQ SCH (14:00)
[2018-08-16 14:53] VITALS: BP 111/72
[2018-08-16 15:58] LABS: CREATININE 0.42 mg/dL (0.55-1.02); VANCOMYCIN,TROUGH 43.6 mcg/mL (5.0-10.0)
[2018-08-16 18:39] VITALS: BP 117/77
[2018-08-16] MEDS: TIZANIDINE 2MG TABLET PO SCH (22:50)
[2018-08-17] MEDS: ALBUTEROL SULFATE 2.5 MG/3 ML NPPB SCH ×4 (02:00→21:00)
[2018-08-17] MEDS: MEROPENEM 1 GM in SODIUM CHLORIDE 0.9% 100 ML IV SCH ×3 (02:07→23:51)
[2018-08-17] MEDS: ONDANSETRON 2MG/ML, 2ML IVPush PRN ×2 (02:13→08:52)
[2018-08-17 02:29] VITALS: BP 109/76
[2018-08-17] MEDS: HYDROcodone/APAP 5/325 TABLET PO PRN ×2 (06:03→12:03)
[2018-08-17] MEDS: MUPIROCIN OINT 2%, 22GM TP SCH ×2 (06:03→21:58)
[2018-08-17] MEDS: INSULIN LISPRO 100 UNITS/ML, PEN SQ-INSULIN SCH ×5 (07:00→21:00)
[2018-08-17] MEDS: VANCOMYCIN 1,800 MG in SODIUM CHLORIDE 0.9% 250 ML IV SCH (07:09)
[2018-08-17 07:39] VITALS: BP 114/79
[2018-08-17] MEDS: GABAPENTIN 300 MG CAPSULE PO SCH ×4 (08:51→21:21)
[2018-08-17] MEDS: metFORMIN 500 MG TABLET PO SCH ×2 (08:51→21:00)
[2018-08-17] MEDS: OMEPRAZOLE 20 MG CAPSULE.DR PO SCH ×3 (08:51→21:22)
[2018-08-17] MEDS: LOSARTAN 50MG TABLET PO SCH (08:51)
[2018-08-17] MEDS: POTASSIUM CHLORIDE 20 MEQ TAB.ER.PRT PO SCH (08:51)
[2018-08-17] MEDS: CALCITONIN NASAL 200 UNITS/0.09ML, 3.7ML NAS SCH (08:51)
[2018-08-17] MEDS: FUROSEMIDE 40 MG TABLET PO SCH (08:51)
[2018-08-17] MEDS: SENNA/DOCUSATE TABLET PO PRN (08:59)
[2018-08-17] MEDS: VANCOMYCIN PER PHARMACY MC SCH (09:00)
[2018-08-17] MEDS: BUDESONIDE 0.5 MG/2 ML INHA NPPB SCH ×2 (09:00→21:00)
[2018-08-17] MEDS: SODIUM CHLORIDE FLUSH 10ML SYR IVF SCH ×3 (10:31→21:25)
[2018-08-17] MEDS ORDERED: OMNIPAQUE 350 MG/ML, 100ML BOTTLE ONE (11:43)
[2018-08-17 12:25] LABS: MEAN CORPUSCULAR HEMOGLOBIN 23.9 pg (27.0-34.8); MEAN CORPUSCULAR HGB CONC 31.1 g/dL (32.4-35.8); MEAN CORPUSCULAR VOLUME 76.8 fL (80-100); MEAN PLATELET VOLUME 6.8 fL (7.4-10.4); PLATELET COUNT 718 x10^3/uL (130-400); RED BLOOD COUNT 3.59 x10^6/uL (3.82-5.3); RED CELL DISTRIBUTION WIDTH 18.9 % (9.6-15.2)
[2018-08-17 12:33] LABS: ALBUMIN 1.6 g/dL (3.4-5.0); ANION GAP 5 mmol/L (5-15); CALCIUM 8.7 mg/dL (8.5-10.1); CHLORIDE 97 mmol/L (98-107)
[2018-08-17 12:37] LABS: ALANINE AMINOTRANSFERASE 14 U/L (12-78); ALKALINE PHOSPHATASE 115 U/L (45-117); BILIRUBIN,TOTAL 0.4 mg/dL (0.2-1.0); CREATININE 0.36 mg/dL (0.55-1.02); TOTAL PROTEIN 5.8 g/dL (6.4-8.2)
[2018-08-17 12:57] LABS: BASOPHILS # (AUTO) 0.07 x10^3/uL (0-0.1); BASOPHILS % (AUTO) 0 % (0-1); EOSINOPHILS # (AUTO) 0.07 x10^3/uL (0-0.4); EOSINOPHILS % (AUTO) 0 % (1-7); LYMPHOCYTES # (AUTO) 1.73 x10^3/uL (1-3.4); LYMPHOCYTES % (AUTO) 9 % (22-44); MD MORPH REVIEW ONLY; MONOCYTES # (AUTO) 1.29 x10^3/uL (0.2-0.8); MONOCYTES % (AUTO) 7 % (2-9); NEUTROPHILS # (AUTO) 15.75 x10^3/uL (1.8-6.8); NEUTROPHILS % (AUTO) 83 % (42-75)
[2018-08-17 12:58] LABS: <PLATELET ESTIMATE> INCREASED; <PLT MORPHOLOGY> NORMAL PLT MORPH; ANISOCYTOSIS 1+; HYPOCHROMIA 1+; MICROCYTOSIS 1+; OVALOCYTES 1+; POLYCHROMASIA 1+
[2018-08-17 12:59] LABS: STOMATOCYTES 1+
[2018-08-17] MEDS: ENOXAPARIN 40 MG/0.4 ML SQ SCH (14:00)
[2018-08-17 14:41] VITALS: BP 120/75
[2018-08-17] MEDS ORDERED: FENTANYL PF 250 MCG/5ML ONE (17:19)
[2018-08-17] MEDS ORDERED: PROPOFOL 10 MG/ML, 20ML ONE (17:40)
[2018-08-17] MEDS ORDERED: ROCURONIUM 10 MG/ML,10ML ONE (17:40)
[2018-08-17] MEDS ORDERED: SUCCINYLCHOLINE 20 MG/ML, 10ML ONE (17:40)
[2018-08-17] MEDS ORDERED: PHENYLEPHRINE 10 MG/ML ONE (17:40)
[2018-08-17] MEDS ORDERED: MIDAZOLAM 1 MG/ML, 2ML ONE (19:00)
[2018-08-17 19:40] LABS: HEMOGLOBIN A1C 5.6 % (4.2-6.3)
[2018-08-17] MEDS ORDERED: NOREPINEPHRINE 4 MG in SODIUM CHLORIDE 0.9% 246 ML IV PRN (20:07)
[2018-08-17] MEDS ORDERED: PROPOFOL 100 ML IV ONE (20:14)
[2018-08-17] MEDS: PROPOFOL 100 ML IV PRN ×2 (20:29→22:19)
[2018-08-17] MEDS ORDERED: DEXTROSE 50%, 50ML SYRINGE IVPush PRN (20:30)
[2018-08-17] MEDS ORDERED: GLUCAGON 1 MG IM PRN (20:30)
[2018-08-17] MEDS ORDERED: PHARMACY MAY ADJ FOR RENAL FX MC SCH (20:30)
[2018-08-17] MEDS ORDERED: LIDOCAINE-MPF 1%, 2ML ENDO PRN (20:30)
[2018-08-17] MEDS ORDERED: ALBUTEROL/IPRATROPIUM 2.5MG/0.5MG, 3 ML INLINE SCH (20:30)
[2018-08-17] MEDS ORDERED: DEXTROSE 4 GM TAB.CHEW PO PRN (20:30)
[2018-08-17 20:56] LABS: MEAN CORPUSCULAR HEMOGLOBIN 24.8 pg (27.0-34.8); MEAN CORPUSCULAR HGB CONC 32.2 g/dL (32.4-35.8); MEAN CORPUSCULAR VOLUME 76.9 fL (80-100); MEAN PLATELET VOLUME 6.8 fL (7.4-10.4); PLATELET COUNT 860 x10^3/uL (130-400); RED BLOOD COUNT 3.92 x10^6/uL (3.82-5.3); RED CELL DISTRIBUTION WIDTH 18.8 % (9.6-15.2)
[2018-08-17] MEDS: TIZANIDINE 2MG TABLET PO SCH (21:00)
[2018-08-17 21:07] LABS: INTERNATIONAL NORMALIZED RATIO 1.02 (0.93-1.1); PROTHROMBIN TIME 10.7 Seconds (9.6-11.5)
[2018-08-17 21:11] LABS: TROPONIN I < 0.015 ng/mL (0.000-0.045)
[2018-08-17] MEDS: FENTANYL PF 100 MCG/2ML IVPush PRN (21:21)
[2018-08-17 21:25] LABS: MD YES
[2018-08-17 21:30] LABS: ANISOCYTOSIS 1+; BAND#(MANUAL) 0.69 x10^3/uL; BANDS%(MANUAL) 3 % (0-7); HYPOCHROMIA 1+; LYMPH#(MANUAL) 0.92 x10^3/uL (1-3.4); LYMPHS% (MANUAL) 4 % (22-44); MICROCYTOSIS 1+; MONOS#(MANUAL) 0.92 x10^3/uL (0.3-2.7); MONOS% (MANUAL) 4 % (2-9); POLYCHROMASIA 1+; SEG#(MANUAL) 20.47 x10^3/uL (1.8-6.8); SEGS% (MANUAL) 89 % (42-75)
[2018-08-17 21:31] LABS: <PLATELET ESTIMATE> INCREASED
[2018-08-17 21:32] LABS: <PLT MORPHOLOGY> NORMAL PLT MORPH
[2018-08-17 22:28] LABS: MICROSCOPIC INDICATED
[2018-08-17 22:36] LABS: CULTURE INDICATED? NO
[2018-08-17] MEDS ORDERED: LABETALOL 5 MG/ML SYRINGE IVPush PRN (23:00)
[2018-08-17] MEDS ORDERED: hydrALAzine 20 MG/ML, 1ML IV PRN (23:00)
[2018-08-18] MEDS: VANCOMYCIN 1,800 MG in SODIUM CHLORIDE 0.9% 250 ML IV SCH ×2 (01:26→12:00)
[2018-08-18] MEDS: ALBUTEROL/IPRATROPIUM 2.5MG/0.5MG, 3 ML INLINE SCH ×6 (02:47→23:00)
[2018-08-18] MEDS: MEROPENEM 1 GM in SODIUM CHLORIDE 0.9% 100 ML IV SCH ×3 (04:05→17:07)
[2018-08-18 05:30] LABS: MEAN CORPUSCULAR HEMOGLOBIN 24.9 pg (27.0-34.8); MEAN CORPUSCULAR HGB CONC 32.8 g/dL (32.4-35.8); MEAN PLATELET VOLUME 7.1 fL (7.4-10.4); PLATELET COUNT 846 x10^3/uL (130-400); RED BLOOD COUNT 3.82 x10^6/uL (3.82-5.3); RED CELL DISTRIBUTION WIDTH 18.8 % (9.6-15.2)
[2018-08-18 05:33] LABS: TROPONIN I < 0.015 ng/mL (0.000-0.045)
[2018-08-18 05:44] LABS: CHLORIDE 100 mmol/L (98-107)
[2018-08-18 05:49] LABS: ANION GAP 10 mmol/L (5-15); CALCIUM 7.8 mg/dL (8.5-10.1); CREATININE 0.25 mg/dL (0.55-1.02)
[2018-08-18] MEDS: MUPIROCIN OINT 2%, 22GM TP SCH ×2 (05:49→15:55)
[2018-08-18] MEDS: PROPOFOL 100 ML IV PRN ×5 (05:51→21:07)
[2018-08-18 06:11] LABS: MD YES
[2018-08-18 06:14] LABS: <PLATELET ESTIMATE> INCREASED; <PLT MORPHOLOGY> NORMAL PLT MORPH; ANISOCYTOSIS 1+; BAND#(MANUAL) 1.32 x10^3/uL; BANDS%(MANUAL) 5 % (0-7); HYPOCHROMIA 1+; LYMPH#(MANUAL) 1.58 x10^3/uL (1-3.4); LYMPHS% (MANUAL) 6 % (22-44); MICROCYTOSIS 1+; MONOS#(MANUAL) 0.53 x10^3/uL (0.3-2.7); MONOS% (MANUAL) 2 % (2-9); MYELOCYTES# (MANUAL) 0.26 x10^3/uL (0-0); MYELOCYTES% (MANUAL) 1 % (0-0); POLYCHROMASIA 1+; SEG#(MANUAL) 22.62 x10^3/uL (1.8-6.8); SEGS% (MANUAL) 86 % (42-75)
[2018-08-18] MEDS: INSULIN LISPRO 100 UNITS/ML, PEN SQ-INSULIN SCH ×5 (06:44→21:00)
[2018-08-18] MEDS: BUDESONIDE 0.5 MG/2 ML INHA NPPB SCH ×2 (07:14→21:00)
[2018-08-18] MEDS: FENTANYL PF 100 MCG/2ML IVPush PRN ×5 (07:33→21:06)
[2018-08-18] MEDS: LACTATED RINGERS 1,000 ML IV SCH ×2 (08:32→21:05)
[2018-08-18] MEDS: SODIUM CHLORIDE FLUSH 10ML SYR IVF SCH ×2 (08:52→21:05)
[2018-08-18] MEDS: CALCITONIN NASAL 200 UNITS/0.09ML, 3.7ML NAS SCH (09:00)
[2018-08-18] MEDS ORDERED: PANTOPRAZOLE 40 MG IV IVPush SCH (09:00)
[2018-08-18] MEDS: LACTOBACILLUS CHEW TABLET PO SCH ×3 (10:06→21:06)
[2018-08-18] MEDS: VANCOMYCIN PER PHARMACY MC SCH (10:57)
[2018-08-18] MEDS: ENOXAPARIN 40 MG/0.4 ML SQ SCH (14:03)
[2018-08-19] MEDS: ALBUTEROL/IPRATROPIUM 2.5MG/0.5MG, 3 ML INLINE SCH ×6 (02:12→22:52)
[2018-08-19] MEDS: MEROPENEM 1 GM in SODIUM CHLORIDE 0.9% 100 ML IV SCH ×3 (02:15→17:38)
[2018-08-19 04:55] LABS: ANION GAP 7 mmol/L (5-15); CALCIUM 7.8 mg/dL (8.5-10.1); CHLORIDE 102 mmol/L (98-107)
[2018-08-19 05:00] LABS: MEAN CORPUSCULAR HEMOGLOBIN 23.9 pg (27.0-34.8); MEAN CORPUSCULAR HGB CONC 31.5 g/dL (32.4-35.8); MEAN CORPUSCULAR VOLUME 76.1 fL (80-100); MEAN PLATELET VOLUME 6.9 fL (7.4-10.4); PLATELET COUNT 558 x10^3/uL (130-400); RED BLOOD COUNT 3.23 x10^6/uL (3.82-5.3); RED CELL DISTRIBUTION WIDTH 19.1 % (9.6-15.2)
[2018-08-19] MEDS: LACTATED RINGERS 1,000 ML IV SCH (05:31)
[2018-08-19] MEDS: PROPOFOL 100 ML IV PRN ×5 (05:32→20:26)
[2018-08-19] MEDS: VANCOMYCIN 1,800 MG in SODIUM CHLORIDE 0.9% 250 ML IV SCH (05:32)
[2018-08-19 05:46] LABS: BASOPHILS # (AUTO) 0.03 x10^3/uL (0-0.1); BASOPHILS % (AUTO) 0 % (0-1); EOSINOPHILS # (AUTO) 0.08 x10^3/uL (0-0.4); EOSINOPHILS % (AUTO) 1 % (1-7); LYMPHOCYTES # (AUTO) 2.25 x10^3/uL (1-3.4); LYMPHOCYTES % (AUTO) 12 % (22-44); MD SCAN; MONOCYTES # (AUTO) 1.09 x10^3/uL (0.2-0.8); MONOCYTES % (AUTO) 6 % (2-9); NEUTROPHILS # (AUTO) 15.38 x10^3/uL (1.8-6.8); NEUTROPHILS % (AUTO) 82 % (42-75)
[2018-08-19] MEDS: MUPIROCIN OINT 2%, 22GM TP SCH ×2 (06:24→17:26)
[2018-08-19] MEDS: INSULIN LISPRO 100 UNITS/ML, PEN SQ-INSULIN SCH ×4 (06:26→23:00)
[2018-08-19] MEDS: BUDESONIDE 0.5 MG/2 ML INHA NPPB SCH ×2 (07:40→22:52)
[2018-08-19] MEDS: VANCOMYCIN PER PHARMACY MC SCH (08:10)
[2018-08-19] MEDS: SODIUM CHLORIDE FLUSH 10ML SYR IVF SCH ×2 (08:10→20:25)
[2018-08-19] MEDS: CALCITONIN NASAL 200 UNITS/0.09ML, 3.7ML NAS SCH (08:10)
[2018-08-19] MEDS: LACTOBACILLUS CHEW TABLET PO SCH ×3 (08:11→20:25)
[2018-08-19] MEDS: FAMOTIDINE 20 MG/2 ML IVPush SCH ×2 (08:13→20:25)
[2018-08-19] MEDS: D5%-0.9% NACL 1,000 ML IV SCH ×2 (08:13→23:09)
[2018-08-19] MEDS: SULFAMETH./TRIMETHOPRIM DS 800MG/160MG TABLET PO SCH ×2 (10:58→20:25)
[2018-08-19] MEDS: FENTANYL PF 100 MCG/2ML IVPush PRN ×5 (12:45→23:10)
[2018-08-19] MEDS: ENOXAPARIN 40 MG/0.4 ML SQ SCH (15:15)
[2018-08-20] MEDS: PROPOFOL 100 ML IV PRN ×2 (00:12→04:13)
[2018-08-20] MEDS: FENTANYL PF 100 MCG/2ML IVPush PRN ×5 (01:38→13:00)
[2018-08-20] MEDS: MEROPENEM 1 GM in SODIUM CHLORIDE 0.9% 100 ML IV SCH ×3 (02:49→18:19)
[2018-08-20] MEDS: ALBUTEROL/IPRATROPIUM 2.5MG/0.5MG, 3 ML INLINE SCH ×2 (03:00→07:25)
[2018-08-20] MEDS: INSULIN LISPRO 100 UNITS/ML, PEN SQ-INSULIN SCH ×4 (05:00→23:00)
[2018-08-20 05:31] LABS: CHLORIDE 104 mmol/L (98-107)
[2018-08-20 05:36] LABS: ANION GAP 5 mmol/L (5-15); CALCIUM 7.6 mg/dL (8.5-10.1); CREATININE 0.29 mg/dL (0.55-1.02); TRIGLYCERIDES 199 mg/dL (50-200)
[2018-08-20 05:45] LABS: VANCOMYCIN,TROUGH 9.5 mcg/mL (5.0-10.0)
[2018-08-20 05:57] LABS: MEAN CORPUSCULAR HEMOGLOBIN 24.1 pg (27.0-34.8); MEAN CORPUSCULAR HGB CONC 31.6 g/dL (32.4-35.8); MEAN CORPUSCULAR VOLUME 76.3 fL (80-100); MEAN PLATELET VOLUME 6.6 fL (7.4-10.4); PLATELET COUNT 630 x10^3/uL (130-400); RED BLOOD COUNT 2.82 x10^6/uL (3.82-5.3); RED CELL DISTRIBUTION WIDTH 19.1 % (9.6-15.2)
[2018-08-20] MEDS: MUPIROCIN OINT 2%, 22GM TP SCH ×2 (06:00→18:00)
[2018-08-20 06:13] LABS: BASOPHILS # (AUTO) 0.08 x10^3/uL (0-0.1); BASOPHILS % (AUTO) 1 % (0-1); EOSINOPHILS # (AUTO) 0.12 x10^3/uL (0-0.4); EOSINOPHILS % (AUTO) 1 % (1-7); LYMPHOCYTES # (AUTO) 1.57 x10^3/uL (1-3.4); LYMPHOCYTES % (AUTO) 12 % (22-44); MD SCAN; MONOCYTES # (AUTO) 1.08 x10^3/uL (0.2-0.8); MONOCYTES % (AUTO) 8 % (2-9); NEUTROPHILS # (AUTO) 10.54 x10^3/uL (1.8-6.8); NEUTROPHILS % (AUTO) 79 % (42-75)
[2018-08-20] MEDS ORDERED: POTASSIUM CHLORIDE 40 MEQ in D5%-0.9% NACL 1,000 ML IV SCH ×2 (07:00→13:06)
[2018-08-20] MEDS: BUDESONIDE 0.5 MG/2 ML INHA NPPB SCH (07:25)
[2018-08-20] MEDS ORDERED: CATHFLO-ALTEPLASE 2 MG/2 ML CATHFLUSH ONE (07:30)
[2018-08-20] MEDS: LACTOBACILLUS CHEW TABLET PO SCH ×4 (07:50→20:31)
[2018-08-20] MEDS: FAMOTIDINE 20 MG/2 ML IVPush SCH (07:51)
[2018-08-20] MEDS: SODIUM CHLORIDE FLUSH 10ML SYR IVF SCH ×2 (07:51→08:30)
[2018-08-20] MEDS: CALCITONIN NASAL 200 UNITS/0.09ML, 3.7ML NAS SCH (07:51)
[2018-08-20] MEDS: SULFAMETH./TRIMETHOPRIM DS 800MG/160MG TABLET PO SCH ×2 (07:51→08:09)
[2018-08-20 07:55] VITALS: BP 125/74
[2018-08-20 08:10] VITALS: BP 128/72
[2018-08-20 08:25] VITALS: BP 128/75
[2018-08-20 08:55] VITALS: BP 135/72
[2018-08-20] MEDS ORDERED: PVN PER PHARMACY MC SCH (09:00)
[2018-08-20 09:25] VITALS: BP 139/79
[2018-08-20] MEDS ORDERED: TPN PER PHARMACY MC SCH (10:00)
[2018-08-20] MEDS: SULFAMETH./TRIMETHOPRIM 10 ML in DEXTROSE 5% 250 ML IV SCH ×2 (10:09→20:31)
[2018-08-20] MEDS: FUROSEMIDE 20 MG/2 ML IV SCH ×2 (10:09→20:31)
[2018-08-20] MEDS ORDERED: KETOROLAC 30 MG/1 ML IM PRN (12:30)
[2018-08-20] MEDS: KETOROLAC 30 MG/1 ML IV SCH ×2 (13:30→20:32)
[2018-08-20] MEDS: ENOXAPARIN 40 MG/0.4 ML SQ SCH (13:31)
[2018-08-20] MEDS: ONDANSETRON 2MG/ML, 2ML IVPush PRN (14:11)
[2018-08-20] MEDS ORDERED: BUDESONIDE 0.5 MG/2 ML INHA NPPB PRN (15:30)
[2018-08-20] MEDS ORDERED: ALBUTEROL SULFATE 2.5 MG/3 ML NPPB PRN (15:30)
[2018-08-20] MEDS ORDERED: DEXTROSE 70% IV SCH (17:00)
[2018-08-20] MEDS ORDERED: DEXTROSE 50%, 50ML SYRINGE IVPush PRN (17:00)
[2018-08-20] MEDS ORDERED: DEXTROSE 10% 500 ML IV PRN (17:00)
[2018-08-20] MEDS ORDERED: D5%-0.9% NACL 1,000 ML IV PRN (17:00)
[2018-08-20] MEDS ORDERED: SMOF TPN IV SCH (17:00)
[2018-08-20] MEDS ORDERED: AMINO ACID 10% IV SCH (17:00)
[2018-08-20] MEDS ORDERED: FAT EMUL IV SCH (17:00)
[2018-08-20] MEDS ORDERED: [UNRECOGNIZED DRUG - OTHER] IV SCH (17:00)
[2018-08-20] MEDS: FILTER, DISP 1.2 MICRON FOR TPN/PVN IV PRN (18:18)
[2018-08-21] MEDS: MEROPENEM 1 GM in SODIUM CHLORIDE 0.9% 100 ML IV SCH ×3 (01:40→18:15)
[2018-08-21] MEDS: KETOROLAC 30 MG/1 ML IV SCH ×4 (01:40→19:27)
[2018-08-21 04:12] LABS: BASOPHILS # (AUTO) 0.14 x10^3/uL (0-0.1); BASOPHILS % (AUTO) 1 % (0-1); EOSINOPHILS # (AUTO) 0.19 x10^3/uL (0-0.4); EOSINOPHILS % (AUTO) 2 % (1-7); LYMPHOCYTES # (AUTO) 1.37 x10^3/uL (1-3.4); LYMPHOCYTES % (AUTO) 13 % (22-44); MD NO; MEAN CORPUSCULAR HEMOGLOBIN 25.2 pg (27.0-34.8); MEAN CORPUSCULAR HGB CONC 32.7 g/dL (32.4-35.8); MEAN CORPUSCULAR VOLUME 77.2 fL (80-100); MEAN PLATELET VOLUME 6.7 fL (7.4-10.4); MONOCYTES # (AUTO) 0.84 x10^3/uL (0.2-0.8); MONOCYTES % (AUTO) 8 % (2-9); NEUTROPHILS # (AUTO) 7.83 x10^3/uL (1.8-6.8); NEUTROPHILS % (AUTO) 76 % (42-75); PLATELET COUNT 602 x10^3/uL (130-400); RED BLOOD COUNT 3.47 x10^6/uL (3.82-5.3); RED CELL DISTRIBUTION WIDTH 19.2 % (9.6-15.2)
[2018-08-21 04:22] LABS: ALANINE AMINOTRANSFERASE 15 U/L (12-78); ALBUMIN 1.3 g/dL (3.4-5.0); ANION GAP 0 mmol/L (5-15); CALCIUM 7.8 mg/dL (8.5-10.1); CHLORIDE 107 mmol/L (98-107)
[2018-08-21 04:28] LABS: ALKALINE PHOSPHATASE 91 U/L (45-117); BILIRUBIN,TOTAL 0.3 mg/dL (0.2-1.0); CREATININE 0.44 mg/dL (0.55-1.02); PREALBUMIN 8.8 mg/dL (20.0-40.0); TRIGLYCERIDES 203 mg/dL (50-200)
[2018-08-21] MEDS: INSULIN LISPRO 100 UNITS/ML, PEN SQ-INSULIN SCH ×4 (05:00→23:00)
[2018-08-21] MEDS: MUPIROCIN OINT 2%, 22GM TP SCH ×2 (05:21→16:53)
[2018-08-21] MEDS ORDERED: ALBUTEROL SULFATE 2.5 MG/3 ML ONE (06:36)
[2018-08-21] MEDS: ALBUMIN HUMAN 25% 100 ML IV SCH ×3 (08:02→23:10)
[2018-08-21] MEDS: SODIUM CHLORIDE FLUSH 10ML SYR IVF SCH ×2 (08:52→21:00)
[2018-08-21] MEDS: CALCITONIN NASAL 200 UNITS/0.09ML, 3.7ML NAS SCH (08:52)
[2018-08-21] MEDS: AcetaZOLAMIDE INJ 500 MG IVPush SCH ×2 (08:52→21:00)
[2018-08-21] MEDS: LACTOBACILLUS CHEW TABLET PO SCH ×3 (08:52→21:38)
[2018-08-21] MEDS ORDERED: ALBUTEROL SULFATE 2.5 MG/3 ML NPPB SCH (09:00)
[2018-08-21] MEDS: BUDESONIDE 0.5 MG/2 ML INHA NPPB SCH ×2 (10:16→18:43)
[2018-08-21] MEDS: ALBUTEROL SULFATE 2.5 MG/3 ML NPPB SCH ×3 (11:00→18:43)
[2018-08-21] MEDS: SULFAMETH./TRIMETHOPRIM 10 ML in DEXTROSE 5% 250 ML IV SCH ×2 (11:40→21:38)
[2018-08-21 12:01] VITALS: BP 136/82
[2018-08-21] MEDS: ENOXAPARIN 40 MG/0.4 ML SQ SCH (14:00)
[2018-08-21] MEDS ORDERED: FAT EMUL IV SCH ×2 (17:00)
[2018-08-21] MEDS ORDERED: SMOF TPN IV SCH ×2 (17:00)
[2018-08-21] MEDS ORDERED: AMINO ACID 10% IV SCH ×2 (17:00)
[2018-08-21] MEDS ORDERED: [UNRECOGNIZED DRUG - OTHER] IV SCH (17:00)
[2018-08-21] MEDS ORDERED: DEXTROSE 70% IV SCH ×2 (17:00)
[2018-08-21] MEDS ORDERED: [UNRECOGNIZED DRUG - OTHER] IV SCH (17:00)
[2018-08-21 21:26] VITALS: BP 111/69
[2018-08-22] MEDS: MEROPENEM 1 GM in SODIUM CHLORIDE 0.9% 100 ML IV SCH ×3 (01:56→18:44)
[2018-08-22] MEDS: KETOROLAC 30 MG/1 ML IV SCH ×4 (01:56→21:27)
[2018-08-22 03:09] VITALS: BP 140/87
[2018-08-22] MEDS: INSULIN LISPRO 100 UNITS/ML, PEN SQ-INSULIN SCH ×4 (05:00→22:23)
[2018-08-22] MEDS: MUPIROCIN OINT 2%, 22GM TP SCH (05:18)
[2018-08-22] MEDS: ONDANSETRON 2MG/ML, 2ML IVPush PRN (05:31)
[2018-08-22 05:56] LABS: BASOPHILS # (AUTO) 0.02 x10^3/uL (0-0.1); BASOPHILS % (AUTO) 0 % (0-1); EOSINOPHILS # (AUTO) 0.55 x10^3/uL (0-0.4); EOSINOPHILS % (AUTO) 5 % (1-7); LYMPHOCYTES # (AUTO) 1.49 x10^3/uL (1-3.4); LYMPHOCYTES % (AUTO) 14 % (22-44); MD NO; MEAN CORPUSCULAR HEMOGLOBIN 25.4 pg (27.0-34.8); MEAN CORPUSCULAR HGB CONC 32.4 g/dL (32.4-35.8); MEAN CORPUSCULAR VOLUME 78.1 fL (80-100); MONOCYTES # (AUTO) 1.01 x10^3/uL (0.2-0.8); MONOCYTES % (AUTO) 10 % (2-9); NEUTROPHILS # (AUTO) 7.33 x10^3/uL (1.8-6.8); NEUTROPHILS % (AUTO) 71 % (42-75); PLATELET COUNT 575 x10^3/uL (130-400); RED BLOOD COUNT 3.23 x10^6/uL (3.82-5.3); RED CELL DISTRIBUTION WIDTH 19.5 % (9.6-15.2)
[2018-08-22] MEDS: ALBUTEROL SULFATE 2.5 MG/3 ML NPPB SCH ×4 (06:00→19:44)
[2018-08-22 06:03] LABS: ANION GAP 3 mmol/L (5-15); CHLORIDE 107 mmol/L (98-107)
[2018-08-22 06:05] LABS: CREATININE 0.39 mg/dL (0.55-1.02)
[2018-08-22] MEDS: BUDESONIDE 0.5 MG/2 ML INHA NPPB SCH ×2 (06:42→19:44)
[2018-08-22] MEDS ORDERED: PROPOFOL 10 MG/ML, 100ML IV ONE (08:00)
[2018-08-22] MEDS ORDERED: ETOMIDATE 20 MG/10 ML ONE (08:00)
[2018-08-22] MEDS ORDERED: ROCURONIUM 10 MG/ML,10ML ONE (08:00)
[2018-08-22 08:18] VITALS: BP 134/77
[2018-08-22] MEDS: LACTOBACILLUS CHEW TABLET PO SCH ×3 (08:21→21:27)
[2018-08-22] MEDS: ALBUMIN HUMAN 25% 100 ML IV SCH (08:21)
[2018-08-22] MEDS: AcetaZOLAMIDE INJ 500 MG IVPush SCH (09:07)
[2018-08-22] MEDS: SULFAMETH./TRIMETHOPRIM 10 ML in DEXTROSE 5% 250 ML IV SCH (09:35)
[2018-08-22] MEDS: SODIUM CHLORIDE FLUSH 10ML SYR IVF SCH ×2 (09:35→21:00)
[2018-08-22] MEDS: CALCITONIN NASAL 200 UNITS/0.09ML, 3.7ML NAS SCH (09:36)
[2018-08-22] MEDS: ENOXAPARIN 40 MG/0.4 ML SQ SCH (13:49)
[2018-08-22 14:12] VITALS: BP 105/74
[2018-08-22] MEDS: FILTER, DISP 1.2 MICRON FOR TPN/PVN IV PRN (16:31)
[2018-08-22] MEDS ORDERED: AMINO ACID 10% IV SCH (17:00)
[2018-08-22] MEDS ORDERED: FAT EMUL IV SCH (17:00)
[2018-08-22] MEDS ORDERED: [UNRECOGNIZED DRUG - OTHER] IV SCH (17:00)
[2018-08-22] MEDS ORDERED: DEXTROSE 70% IV SCH (17:00)
[2018-08-22] MEDS ORDERED: SMOF TPN IV SCH (17:00)
[2018-08-22] MEDS: SULFAMETH./TRIMETHOPRIM DS 800MG/160MG TABLET PO SCH (21:27)
[2018-08-22 21:40] VITALS: BP 157/95
[2018-08-22] MEDS ORDERED: FUROSEMIDE 40 MG/4 ML IV ONE (22:30)
[2018-08-23] MEDS ORDERED: METOPROLOL 1 MG/ML, 5ML IVPush ONE (01:30)
[2018-08-23 02:16] VITALS: BP 133/83
[2018-08-23] MEDS: MEROPENEM 1 GM in SODIUM CHLORIDE 0.9% 100 ML IV SCH ×3 (02:50→19:12)
[2018-08-23] MEDS: KETOROLAC 30 MG/1 ML IV SCH ×2 (04:23→11:02)
[2018-08-23] MEDS: INSULIN LISPRO 100 UNITS/ML, PEN SQ-INSULIN SCH ×5 (05:30→23:00)
[2018-08-23 06:00] LABS: BASOPHILS # (AUTO) 0.05 x10^3/uL (0-0.1); BASOPHILS % (AUTO) 1 % (0-1); EOSINOPHILS # (AUTO) 0.22 x10^3/uL (0-0.4); EOSINOPHILS % (AUTO) 3 % (1-7); LYMPHOCYTES # (AUTO) 0.91 x10^3/uL (1-3.4); LYMPHOCYTES % (AUTO) 10 % (22-44); MD NO; MEAN CORPUSCULAR HEMOGLOBIN 25.3 pg (27.0-34.8); MEAN CORPUSCULAR HGB CONC 32.7 g/dL (32.4-35.8); MEAN CORPUSCULAR VOLUME 77.2 fL (80-100); MEAN PLATELET VOLUME 7.1 fL (7.4-10.4); MONOCYTES # (AUTO) 0.65 x10^3/uL (0.2-0.8); MONOCYTES % (AUTO) 7 % (2-9); NEUTROPHILS # (AUTO) 6.98 x10^3/uL (1.8-6.8); NEUTROPHILS % (AUTO) 79 % (42-75); PLATELET COUNT 556 x10^3/uL (130-400); RED BLOOD COUNT 3.25 x10^6/uL (3.82-5.3); RED CELL DISTRIBUTION WIDTH 19.9 % (9.6-15.2)
[2018-08-23] MEDS: ALBUTEROL SULFATE 2.5 MG/3 ML NPPB SCH ×3 (06:00→16:00)
[2018-08-23 06:05] LABS: ANION GAP 5 mmol/L (5-15); CALCIUM 8.2 mg/dL (8.5-10.1); CHLORIDE 106 mmol/L (98-107)
[2018-08-23 06:42] VITALS: BP 166/90
[2018-08-23] MEDS ORDERED: SODIUM CHLORIDE 0.9% 1,000 ML IV SCH (07:30)
[2018-08-23] MEDS ORDERED: FUROSEMIDE 40 MG/4 ML IV ONE (07:30)
[2018-08-23] MEDS ORDERED: OMNIPAQUE 350 MG/ML, 100ML BOTTLE ONE ×2 (08:47→17:58)
[2018-08-23] MEDS: SODIUM CHLORIDE FLUSH 10ML SYR IVF SCH ×3 (08:57→22:03)
[2018-08-23] MEDS: LACTOBACILLUS CHEW TABLET PO SCH ×3 (09:00→22:05)
[2018-08-23] MEDS: BUDESONIDE 0.5 MG/2 ML INHA NPPB SCH ×2 (09:00→18:33)
[2018-08-23] MEDS: CALCITONIN NASAL 200 UNITS/0.09ML, 3.7ML NAS SCH (09:00)
[2018-08-23 09:12] VITALS: BP 167/96
[2018-08-23] MEDS ORDERED: ACETAMINOPHEN 325 MG TABLET ONE (10:02)
[2018-08-23] MEDS: ACETAMINOPHEN 325 MG TABLET PO PRN ×3 (10:20→22:00)
[2018-08-23] MEDS: SULFAMETH./TRIMETHOPRIM DS 800MG/160MG TABLET PO SCH ×2 (11:02→22:29)
[2018-08-23 11:56] LABS: MICROSCOPIC AUTO
[2018-08-23 12:03] LABS: CULTURE INDICATED? NO
[2018-08-23] MEDS: ERGOCALCIFEROL 50,000 UNIT CAPSULE PO SCH (13:54)
[2018-08-23] MEDS: ENOXAPARIN 40 MG/0.4 ML SQ SCH (13:54)
[2018-08-23] MEDS ORDERED: PHARMACOKINETIC CONSULTATION MC ONE (14:00)
[2018-08-23] MEDS ORDERED: VANCOMYCIN PER PHARMACY MC PRN (14:00)
[2018-08-23] MEDS ORDERED: PHARMACOKINETIC MONITORING MC PRN (14:00)
[2018-08-23] MEDS ORDERED: VERAPAMIL 2.5 MG/ML, 2ML ONE (15:17)
[2018-08-23] MEDS: MICAFUNGIN 100 MG in SODIUM CHLORIDE 0.9% 100 ML IV SCH (15:19)
[2018-08-23] MEDS: VANCOMYCIN 1,800 MG in SODIUM CHLORIDE 0.9% 250 ML IV SCH (15:19)
[2018-08-23] MEDS ORDERED: VERAPAMIL 2.5 MG/ML, 2ML IVPush ONE (15:30)
[2018-08-23] MEDS ORDERED: FENTANYL PF 100 MCG/2ML ONE (15:51)
[2018-08-23] MEDS ORDERED: NOREPINEPHRINE 1 MG/ML, 4ML ONE (15:58)
[2018-08-23] MEDS ORDERED: FENTANYL PF 100 MCG/2ML IVPush ONE (16:00)
[2018-08-23] MEDS ORDERED: NOREPINEPHRINE 4 MG in SODIUM CHLORIDE 0.9% 246 ML IV PRN (16:09)
[2018-08-23] MEDS ORDERED: LIDOCAINE-MPF 1%, 2ML ENDO PRN (16:30)
[2018-08-23] MEDS ORDERED: PHARMACY MAY ADJ FOR RENAL FX MC SCH (16:30)
[2018-08-23] MEDS: ALBUTEROL/IPRATROPIUM 2.5MG/0.5MG, 3 ML INLINE SCH ×2 (16:30→18:33)
[2018-08-23] MEDS ORDERED: DEXTROSE 50%, 50ML SYRINGE IVPush PRN (16:30)
[2018-08-23] MEDS ORDERED: LACTATED RINGERS 1,000 ML IVBOLUS ONE (16:30)
[2018-08-23] MEDS ORDERED: GLUCAGON 1 MG IM PRN (16:30)
[2018-08-23] MEDS: PROPOFOL 100 ML IV PRN (16:35)
[2018-08-23] MEDS ORDERED: SMOF TPN IV SCH (17:00)
[2018-08-23] MEDS ORDERED: DEXTROSE 70% IV SCH (17:00)
[2018-08-23] MEDS ORDERED: AMINO ACID 10% IV SCH (17:00)
[2018-08-23] MEDS ORDERED: FAT EMUL IV SCH (17:00)
[2018-08-23] MEDS ORDERED: [UNRECOGNIZED DRUG - OTHER] IV SCH (17:00)
[2018-08-23 17:50] LABS: BASOPHILS # (AUTO) 0.04 x10^3/uL (0-0.1); BASOPHILS % (AUTO) 0 % (0-1); EOSINOPHILS # (AUTO) 0.03 x10^3/uL (0-0.4); EOSINOPHILS % (AUTO) 0 % (1-7); LYMPHOCYTES # (AUTO) 0.55 x10^3/uL (1-3.4); LYMPHOCYTES % (AUTO) 5 % (22-44); MD NO; MEAN CORPUSCULAR HEMOGLOBIN 25.4 pg (27.0-34.8); MEAN CORPUSCULAR HGB CONC 32.8 g/dL (32.4-35.8); MEAN CORPUSCULAR VOLUME 77.7 fL (80-100); MEAN PLATELET VOLUME 7.2 fL (7.4-10.4); MONOCYTES # (AUTO) 0.28 x10^3/uL (0.2-0.8); MONOCYTES % (AUTO) 3 % (2-9); NEUTROPHILS # (AUTO) 9.64 x10^3/uL (1.8-6.8); NEUTROPHILS % (AUTO) 92 % (42-75); PLATELET COUNT 545 x10^3/uL (130-400); RED CELL DISTRIBUTION WIDTH 19.6 % (9.6-15.2)
[2018-08-23 17:53] LABS: ANION GAP 5 mmol/L (5-15); CALCIUM 7.9 mg/dL (8.5-10.1); CHLORIDE 103 mmol/L (98-107); TRIGLYCERIDES 187 mg/dL (50-200)
[2018-08-23 18:07] LABS: INTERNATIONAL NORMALIZED RATIO 1.15 (0.93-1.1)
[2018-08-23] MEDS: LACTATED RINGERS 1,000 ML IV SCH (19:12)
[2018-08-23] MEDS ORDERED: PROPOFOL 100 ML IV ONE (19:20)
[2018-08-24] MEDS: FENTANYL PF 100 MCG/2ML IVPush PRN ×2 (02:13→05:37)
[2018-08-24] MEDS: PROPOFOL 100 ML IV PRN ×2 (02:13→12:03)
[2018-08-24] MEDS: MEROPENEM 1 GM in SODIUM CHLORIDE 0.9% 100 ML IV SCH ×2 (02:38→10:43)
[2018-08-24] MEDS: ALBUTEROL/IPRATROPIUM 2.5MG/0.5MG, 3 ML INLINE SCH ×6 (03:16→22:20)
[2018-08-24] MEDS: LACTATED RINGERS 1,000 ML IV SCH ×2 (04:45→14:36)
[2018-08-24 05:11] LABS: MEAN CORPUSCULAR HEMOGLOBIN 25.2 pg (27.0-34.8); MEAN CORPUSCULAR HGB CONC 32.6 g/dL (32.4-35.8); MEAN CORPUSCULAR VOLUME 77.2 fL (80-100); MEAN PLATELET VOLUME 7.8 fL (7.4-10.4); PLATELET COUNT 425 x10^3/uL (130-400); RED BLOOD COUNT 3.63 x10^6/uL (3.82-5.3); RED CELL DISTRIBUTION WIDTH 19.3 % (9.6-15.2)
[2018-08-24 05:19] LABS: ALBUMIN 1.7 g/dL (3.4-5.0); ANION GAP 6 mmol/L (5-15); CALCIUM 7.6 mg/dL (8.5-10.1); CHLORIDE 104 mmol/L (98-107)
[2018-08-24 05:23] LABS: ALANINE AMINOTRANSFERASE 72 U/L (12-78); ALKALINE PHOSPHATASE 130 U/L (45-117); BILIRUBIN,TOTAL 1.9 mg/dL (0.2-1.0); CREATININE 0.59 mg/dL (0.55-1.02); TOTAL PROTEIN 4.9 g/dL (6.4-8.2)
[2018-08-24] MEDS: INSULIN LISPRO 100 UNITS/ML, PEN SQ-INSULIN SCH ×6 (05:34→23:00)
[2018-08-24 05:43] LABS: MD YES
[2018-08-24 05:45] LABS: ANISOCYTOSIS 1+; BAND#(MANUAL) 0.57 x10^3/uL; BANDS%(MANUAL) 7 % (0-7); LYMPH#(MANUAL) 0.49 x10^3/uL (1-3.4); LYMPHS% (MANUAL) 6 % (22-44); MICROCYTOSIS 1+; MONOS#(MANUAL) 0.33 x10^3/uL (0.3-2.7); MONOS% (MANUAL) 4 % (2-9); OVALOCYTES 1+; SEG#(MANUAL) 6.81 x10^3/uL (1.8-6.8); SEGS% (MANUAL) 83 % (42-75)
[2018-08-24 05:46] LABS: <PLATELET ESTIMATE> ADEQUATE; LARGE PLATELETS 1+; POLYCHROMASIA 1+
[2018-08-24] MEDS: ACETAMINOPHEN 325 MG TABLET PO PRN ×3 (06:38→21:37)
[2018-08-24] MEDS: BUDESONIDE 0.5 MG/2 ML INHA NPPB SCH ×2 (07:05→19:34)
[2018-08-24] MEDS: VANCOMYCIN 1,800 MG in SODIUM CHLORIDE 0.9% 250 ML IV SCH (08:25)
[2018-08-24] MEDS: SODIUM CHLORIDE FLUSH 10ML SYR IVF SCH ×4 (09:00→21:38)
[2018-08-24] MEDS: SULFAMETH./TRIMETHOPRIM DS 800MG/160MG TABLET PO SCH (10:42)
[2018-08-24] MEDS: LACTOBACILLUS CHEW TABLET PO SCH ×3 (10:43→21:37)
[2018-08-24] MEDS: CALCITONIN NASAL 200 UNITS/0.09ML, 3.7ML NAS SCH (10:43)
[2018-08-24] MEDS: MICAFUNGIN 100 MG in SODIUM CHLORIDE 0.9% 100 ML IV SCH (13:33)
[2018-08-24] MEDS: ENOXAPARIN 40 MG/0.4 ML SQ SCH (16:37)
[2018-08-24] MEDS ORDERED: DEXTROSE 70% IV SCH (17:00)
[2018-08-24] MEDS ORDERED: FUROSEMIDE 20 MG/2 ML IV SCH (17:00)
[2018-08-24] MEDS ORDERED: [UNRECOGNIZED DRUG - OTHER] IV SCH (17:00)
[2018-08-24] MEDS ORDERED: SMOF TPN IV SCH (17:00)
[2018-08-24] MEDS ORDERED: AMINO ACID 10% IV SCH (17:00)
[2018-08-24] MEDS ORDERED: FAT EMUL IV SCH (17:00)
[2018-08-24] MEDS: AZTREONAM 2 GM in DEXTROSE 5% 100 ML IV SCH (18:51)
[2018-08-24] MEDS: DEXMEDETOMIDINE 200 MCG in SODIUM CHLORIDE 0.9% 48 ML IV PRN (21:57)
[2018-08-25] MEDS: ALBUTEROL/IPRATROPIUM 2.5MG/0.5MG, 3 ML INLINE SCH ×6 (02:40→23:00)
[2018-08-25] MEDS: DEXMEDETOMIDINE 200 MCG in SODIUM CHLORIDE 0.9% 48 ML IV PRN ×4 (03:43→19:44)
[2018-08-25] MEDS: AZTREONAM 2 GM in DEXTROSE 5% 100 ML IV SCH ×3 (03:44→17:47)
[2018-08-25] MEDS: INSULIN LISPRO 100 UNITS/ML, PEN SQ-INSULIN SCH (05:00)
[2018-08-25 05:49] LABS: ANION GAP 6 mmol/L (5-15); CALCIUM 7.6 mg/dL (8.5-10.1); CHLORIDE 106 mmol/L (98-107)
[2018-08-25 05:50] LABS: CREATININE 0.62 mg/dL (0.55-1.02)
[2018-08-25 05:53] LABS: BASOPHILS # (AUTO) 0.01 x10^3/uL (0-0.1); BASOPHILS % (AUTO) 0 % (0-1); EOSINOPHILS # (AUTO) 0.01 x10^3/uL (0-0.4); EOSINOPHILS % (AUTO) 0 % (1-7); LYMPHOCYTES # (AUTO) 0.63 x10^3/uL (1-3.4); LYMPHOCYTES % (AUTO) 14 % (22-44); MD NO; MEAN CORPUSCULAR HEMOGLOBIN 24.6 pg (27.0-34.8); MEAN CORPUSCULAR VOLUME 76.8 fL (80-100); MEAN PLATELET VOLUME 8.1 fL (7.4-10.4); MONOCYTES # (AUTO) 0.18 x10^3/uL (0.2-0.8); MONOCYTES % (AUTO) 4 % (2-9); NEUTROPHILS # (AUTO) 3.77 x10^3/uL (1.8-6.8); NEUTROPHILS % (AUTO) 82 % (42-75); PLATELET COUNT 304 x10^3/uL (130-400); RED BLOOD COUNT 3.33 x10^6/uL (3.82-5.3); RED CELL DISTRIBUTION WIDTH 19.6 % (9.6-15.2)
[2018-08-25] MEDS: BUDESONIDE 0.5 MG/2 ML INHA NPPB SCH ×2 (06:25→18:15)
[2018-08-25 06:38] LABS: HCT (SEDRATE) 25.5 % (34.6-47.8)
[2018-08-25] MEDS: ACETAMINOPHEN 325 MG TABLET PO PRN ×3 (06:42→16:39)
[2018-08-25] MEDS: FUROSEMIDE 40 MG/4 ML IV SCH (08:32)
[2018-08-25] MEDS: SODIUM CHLORIDE FLUSH 10ML SYR IVF SCH ×2 (08:33→22:20)
[2018-08-25] MEDS: LACTOBACILLUS CHEW TABLET PO SCH ×3 (08:33→22:19)
[2018-08-25] MEDS: DAPTOMYCIN 600 MG in SODIUM CHLORIDE 0.9% 100 ML IV SCH (10:58)
[2018-08-25] MEDS: FENTANYL PF 100 MCG/2ML IVPush PRN (13:28)
[2018-08-25] MEDS: MICAFUNGIN 100 MG in SODIUM CHLORIDE 0.9% 100 ML IV SCH (13:28)
[2018-08-25] MEDS: ENOXAPARIN 40 MG/0.4 ML SQ SCH (13:28)
[2018-08-25] MEDS: NOREPINEPHRINE 4 MG in SODIUM CHLORIDE 0.9% 246 ML IV PRN ×2 (14:24→16:43)
[2018-08-25] MEDS ORDERED: SMOF TPN IV SCH ×3 (17:00→18:00)
[2018-08-25] MEDS ORDERED: AMINO ACID 10% IV SCH ×3 (17:00→18:00)
[2018-08-25] MEDS ORDERED: FAT EMUL IV SCH ×3 (17:00→18:00)
[2018-08-25] MEDS ORDERED: PVN PER PHARMACY MC SCH (17:00)
[2018-08-25] MEDS ORDERED: FILTER, DISP 1.2 MICRON FOR TPN/PVN IV PRN (17:00)
[2018-08-25] MEDS ORDERED: [UNRECOGNIZED DRUG - OTHER] IV SCH ×2 (17:00)
[2018-08-25] MEDS ORDERED: DEXTROSE 70% IV SCH ×3 (17:00→18:00)
[2018-08-25] MEDS ORDERED: [UNRECOGNIZED DRUG - OTHER] IV SCH (18:00)
[2018-08-26] MEDS: DEXMEDETOMIDINE 200 MCG in SODIUM CHLORIDE 0.9% 48 ML IV PRN ×5 (00:50→23:14)
[2018-08-26] MEDS: NOREPINEPHRINE 4 MG in SODIUM CHLORIDE 0.9% 246 ML IV PRN (02:09)
[2018-08-26] MEDS: AZTREONAM 2 GM in DEXTROSE 5% 100 ML IV SCH ×2 (02:09→10:05)
[2018-08-26] MEDS: ALBUTEROL/IPRATROPIUM 2.5MG/0.5MG, 3 ML INLINE SCH ×6 (03:00→23:00)
[2018-08-26 05:15] LABS: BASOPHILS # (AUTO) 0.01 x10^3/uL (0-0.1); BASOPHILS % (AUTO) 0 % (0-1); EOSINOPHILS # (AUTO) 0.03 x10^3/uL (0-0.4); EOSINOPHILS % (AUTO) 1 % (1-7); LYMPHOCYTES # (AUTO) 0.96 x10^3/uL (1-3.4); LYMPHOCYTES % (AUTO) 26 % (22-44); MD NO; MEAN CORPUSCULAR HEMOGLOBIN 24.9 pg (27.0-34.8); MEAN CORPUSCULAR HGB CONC 32.3 g/dL (32.4-35.8); MEAN CORPUSCULAR VOLUME 77.2 fL (80-100); MEAN PLATELET VOLUME 9.3 fL (7.4-10.4); MONOCYTES # (AUTO) 0.34 x10^3/uL (0.2-0.8); MONOCYTES % (AUTO) 9 % (2-9); NEUTROPHILS # (AUTO) 2.37 x10^3/uL (1.8-6.8); NEUTROPHILS % (AUTO) 64 % (42-75); PLATELET COUNT 218 x10^3/uL (130-400); RED BLOOD COUNT 2.98 x10^6/uL (3.82-5.3); RED CELL DISTRIBUTION WIDTH 19.7 % (9.6-15.2)
[2018-08-26 05:24] LABS: ANION GAP 7 mmol/L (5-15); CALCIUM 7.7 mg/dL (8.5-10.1); CHLORIDE 108 mmol/L (98-107); CREATININE 0.66 mg/dL (0.55-1.02); TRIGLYCERIDES 273 mg/dL (50-200)
[2018-08-26] MEDS: BUDESONIDE 0.5 MG/2 ML INHA NPPB SCH ×2 (06:25→19:19)
[2018-08-26] MEDS: INSULIN LISPRO 100 UNITS/ML, PEN SQ-INSULIN SCH (09:00)
[2018-08-26] MEDS ORDERED: TPN PER PHARMACY MC SCH (10:00)
[2018-08-26] MEDS: FUROSEMIDE 40 MG/4 ML IV SCH (10:02)
[2018-08-26] MEDS: LACTOBACILLUS CHEW TABLET PO SCH ×3 (10:04→20:54)
[2018-08-26] MEDS: SODIUM CHLORIDE FLUSH 10ML SYR IVF SCH ×2 (10:04→20:54)
[2018-08-26] MEDS: FENTANYL PF 100 MCG/2ML IVPush PRN ×5 (10:36→23:07)
[2018-08-26] MEDS: DAPTOMYCIN 600 MG in SODIUM CHLORIDE 0.9% 100 ML IV SCH (11:18)
[2018-08-26] MEDS ORDERED: PNEUMOC 13-VALENT VACC, 0.5 ML IM-VACC ONE (12:00)
[2018-08-26] MEDS: MEROPENEM 1 GM in SODIUM CHLORIDE 0.9% 100 ML IV SCH ×2 (13:40→21:00)
[2018-08-26] MEDS: ENOXAPARIN 40 MG/0.4 ML SQ SCH (14:51)
[2018-08-26] MEDS: MICAFUNGIN 100 MG in SODIUM CHLORIDE 0.9% 100 ML IV SCH (14:51)
[2018-08-26] MEDS ORDERED: OMNIPAQUE 350 MG/ML, 150 ML BOTTLE ONE (15:22)
[2018-08-26] MEDS ORDERED: DEXTROSE 70% IV SCH (17:00)
[2018-08-26] MEDS ORDERED: [UNRECOGNIZED DRUG - OTHER] IV SCH (17:00)
[2018-08-26] MEDS ORDERED: FAT EMUL IV SCH (17:00)
[2018-08-26] MEDS ORDERED: AMINO ACID 10% IV SCH (17:00)
[2018-08-26] MEDS ORDERED: SMOF TPN IV SCH (17:00)
[2018-08-26] MEDS ORDERED: FILTER, DISP 1.2 MICRON FOR TPN/PVN IV PRN (17:00)
[2018-08-26] MEDS ORDERED: HYDROmorphone 1 MG/ML, 1ML INJ IV PRN (22:30)
[2018-08-27] MEDS: HYDROmorphone 2 MG/ML, 1ML IV PRN ×2 (00:53→19:57)
[2018-08-27] MEDS: ALBUTEROL/IPRATROPIUM 2.5MG/0.5MG, 3 ML INLINE SCH ×3 (03:00→14:50)
[2018-08-27] MEDS: MEROPENEM 1 GM in SODIUM CHLORIDE 0.9% 100 ML IV SCH ×3 (03:37→19:59)
[2018-08-27] MEDS: DEXMEDETOMIDINE 200 MCG in SODIUM CHLORIDE 0.9% 48 ML IV PRN ×2 (04:08→12:10)
[2018-08-27 05:25] LABS: MEAN CORPUSCULAR HEMOGLOBIN 24.3 pg (27.0-34.8); MEAN PLATELET VOLUME 9.9 fL (7.4-10.4); PLATELET COUNT 206 x10^3/uL (130-400); RED BLOOD COUNT 2.78 x10^6/uL (3.82-5.3); RED CELL DISTRIBUTION WIDTH 19.8 % (9.6-15.2)
[2018-08-27 05:25] LABS: MD NO
[2018-08-27 05:33] LABS: ANION GAP 4 mmol/L (5-15); CALCIUM 8.1 mg/dL (8.5-10.1); CHLORIDE 106 mmol/L (98-107)
[2018-08-27 05:34] LABS: CREATININE 0.49 mg/dL (0.55-1.02)
[2018-08-27 06:12] LABS: ANISOCYTOSIS 1+; BASOPHILS # (AUTO) 0.03 x10^3/uL (0-0.1); BASOPHILS % (AUTO) 1 % (0-1); EOSINOPHILS # (AUTO) 0.16 x10^3/uL (0-0.4); EOSINOPHILS % (AUTO) 4 % (1-7); LYMPHOCYTES # (AUTO) 1.33 x10^3/uL (1-3.4); LYMPHOCYTES % (AUTO) 29 % (22-44); MD MORPH REVIEW ONLY; MONOCYTES # (AUTO) 0.52 x10^3/uL (0.2-0.8); MONOCYTES % (AUTO) 11 % (2-9); NEUTROPHILS # (AUTO) 2.58 x10^3/uL (1.8-6.8); NEUTROPHILS % (AUTO) 56 % (42-75)
[2018-08-27 06:13] LABS: MICROCYTOSIS 1+; OVALOCYTES 1+; TEAR DROPS 1+
[2018-08-27 06:14] LABS: <PLATELET ESTIMATE> ADEQUATE; <PLT MORPHOLOGY> NORMAL PLT MORPH
[2018-08-27 06:22] VITALS: BP 118/76
[2018-08-27 06:36] VITALS: BP 108/65
[2018-08-27] MEDS: BUDESONIDE 0.5 MG/2 ML INHA NPPB SCH ×2 (07:00→21:00)
[2018-08-27 09:00] VITALS: BP 136/80
[2018-08-27] MEDS: INSULIN LISPRO 100 UNITS/ML, PEN SQ-INSULIN SCH (09:00)
--- NOTE | 2018-08-27 10:37 | NUR ---
TF GOAL: VITAL HIGH PROTEIN @ 65ML/HR
[2018-08-27] MEDS: SODIUM CHLORIDE FLUSH 10ML SYR IVF SCH ×2 (11:00→19:59)
[2018-08-27] MEDS: LACTOBACILLUS CHEW TABLET PO SCH ×3 (11:00→19:59)
[2018-08-27] MEDS: FUROSEMIDE 40 MG/4 ML IV SCH (11:01)
[2018-08-27 11:11] VITALS: BP 128/77
[2018-08-27 11:30] VITALS: BP 112/66
[2018-08-27] MEDS: DAPTOMYCIN 600 MG in SODIUM CHLORIDE 0.9% 100 ML IV SCH (13:28)
[2018-08-27 13:45] VITALS: BP 126/74
[2018-08-27] MEDS: ENOXAPARIN 40 MG/0.4 ML SQ SCH (16:08)
[2018-08-27] MEDS: MICAFUNGIN 100 MG in SODIUM CHLORIDE 0.9% 100 ML IV SCH (16:11)
[2018-08-27] MEDS ORDERED: RACEPINEPHRINE INH 2.25%, 0.5ML ONE (16:40)
[2018-08-27] MEDS ORDERED: SMOF TPN IV SCH (17:00)
[2018-08-27] MEDS ORDERED: FAT EMUL IV SCH (17:00)
[2018-08-27] MEDS ORDERED: [UNRECOGNIZED DRUG - OTHER] IV SCH (17:00)
[2018-08-27] MEDS ORDERED: FILTER, DISP 1.2 MICRON FOR TPN/PVN IV PRN (17:00)
[2018-08-27] MEDS ORDERED: AMINO ACID 10% IV SCH (17:00)
[2018-08-27] MEDS ORDERED: DEXTROSE 70% IV SCH (17:00)
[2018-08-27] MEDS: ALBUTEROL/IPRATROPIUM 2.5MG/0.5MG, 3 ML NPPB SCH (21:00)
[2018-08-28] MEDS: ALBUTEROL/IPRATROPIUM 2.5MG/0.5MG, 3 ML NPPB SCH ×4 (02:50→19:37)
[2018-08-28] MEDS: MEROPENEM 1 GM in SODIUM CHLORIDE 0.9% 100 ML IV SCH ×3 (03:20→22:40)
[2018-08-28] MEDS: HYDROmorphone 2 MG/ML, 1ML IV PRN ×3 (04:27→22:39)
[2018-08-28 04:46] LABS: ANION GAP 5 mmol/L (5-15); CALCIUM 8.4 mg/dL (8.5-10.1); CHLORIDE 106 mmol/L (98-107)
[2018-08-28 04:59] LABS: MEAN CORPUSCULAR HEMOGLOBIN 25.8 pg (27.0-34.8); MEAN CORPUSCULAR VOLUME 80.6 fL (80-100); MEAN PLATELET VOLUME 10.6 fL (7.4-10.4); PLATELET COUNT 278 x10^3/uL (130-400); RED BLOOD COUNT 3.55 x10^6/uL (3.82-5.3); RED CELL DISTRIBUTION WIDTH 21.1 % (9.6-15.2)
[2018-08-28 05:47] LABS: BASOPHILS # (AUTO) 0.03 x10^3/uL (0-0.1); BASOPHILS % (AUTO) 0 % (0-1); EOSINOPHILS # (AUTO) 0.33 x10^3/uL (0-0.4); EOSINOPHILS % (AUTO) 5 % (1-7); LYMPHOCYTES # (AUTO) 1.92 x10^3/uL (1-3.4); LYMPHOCYTES % (AUTO) 28 % (22-44); MD SCAN; MONOCYTES # (AUTO) 0.75 x10^3/uL (0.2-0.8); MONOCYTES % (AUTO) 11 % (2-9); NEUTROPHILS # (AUTO) 3.87 x10^3/uL (1.8-6.8); NEUTROPHILS % (AUTO) 56 % (42-75)
[2018-08-28] MEDS: BUDESONIDE 0.5 MG/2 ML INHA NPPB SCH ×2 (07:25→19:37)
[2018-08-28] MEDS: INSULIN LISPRO 100 UNITS/ML, PEN SQ-INSULIN SCH (07:32)
[2018-08-28] MEDS: LACTOBACILLUS CHEW TABLET PO SCH ×3 (08:57→22:40)
[2018-08-28] MEDS: FUROSEMIDE 40 MG/4 ML IV SCH (08:57)
[2018-08-28] MEDS: SODIUM CHLORIDE FLUSH 10ML SYR IVF SCH ×2 (08:59→22:41)
[2018-08-28] MEDS ORDERED: methylPREDNISolone SOD SUCC 125 MG/2 ML ONE (11:02)
[2018-08-28] MEDS: DAPTOMYCIN 600 MG in SODIUM CHLORIDE 0.9% 100 ML IV SCH (13:09)
[2018-08-28] MEDS: MICAFUNGIN 100 MG in SODIUM CHLORIDE 0.9% 100 ML IV SCH (14:01)
[2018-08-28] MEDS: ENOXAPARIN 40 MG/0.4 ML SQ SCH (14:02)
[2018-08-28] MEDS ORDERED: [UNRECOGNIZED DRUG - OTHER] IV SCH (17:00)
[2018-08-28] MEDS ORDERED: DEXTROSE 70% IV SCH (17:00)
[2018-08-28] MEDS ORDERED: SMOF TPN IV SCH (17:00)
[2018-08-28] MEDS ORDERED: AMINO ACID 10% IV SCH (17:00)
[2018-08-28] MEDS ORDERED: FAT EMUL IV SCH (17:00)
[2018-08-29 03:23] VITALS: BP 145/89
[2018-08-29] MEDS: MEROPENEM 1 GM in SODIUM CHLORIDE 0.9% 100 ML IV SCH ×3 (05:39→21:30)
[2018-08-29] MEDS: HYDROmorphone 2 MG/ML, 1ML IV PRN (05:40)
[2018-08-29 05:59] LABS: MEAN CORPUSCULAR HEMOGLOBIN 26.7 pg (27.0-34.8); MEAN CORPUSCULAR HGB CONC 33.2 g/dL (32.4-35.8); MEAN CORPUSCULAR VOLUME 80.5 fL (80-100); MEAN PLATELET VOLUME 9.8 fL (7.4-10.4); PLATELET COUNT 395 x10^3/uL (130-400); RED BLOOD COUNT 3.77 x10^6/uL (3.82-5.3); RED CELL DISTRIBUTION WIDTH 22.2 % (9.6-15.2)
[2018-08-29 06:01] LABS: ANION GAP 4 mmol/L (5-15); CALCIUM 8.8 mg/dL (8.5-10.1); CHLORIDE 107 mmol/L (98-107)
[2018-08-29 06:06] LABS: ALANINE AMINOTRANSFERASE 69 U/L (12-78); ALKALINE PHOSPHATASE 286 U/L (45-117); CREATININE 0.51 mg/dL (0.55-1.02); TOTAL PROTEIN 6.2 g/dL (6.4-8.2); TRIGLYCERIDES 252 mg/dL (50-200)
[2018-08-29 06:34] LABS: BASOPHILS # (AUTO) 0.03 x10^3/uL (0-0.1); BASOPHILS % (AUTO) 1 % (0-1); EOSINOPHILS # (AUTO) 0.41 x10^3/uL (0-0.4); EOSINOPHILS % (AUTO) 6 % (1-7); LYMPHOCYTES # (AUTO) 2.34 x10^3/uL (1-3.4); LYMPHOCYTES % (AUTO) 33 % (22-44); MD SCAN; MONOCYTES % (AUTO) 11 % (2-9); NEUTROPHILS # (AUTO) 3.53 x10^3/uL (1.8-6.8); NEUTROPHILS % (AUTO) 50 % (42-75)
[2018-08-29] MEDS: INSULIN LISPRO 100 UNITS/ML, PEN SQ-INSULIN SCH (06:54)
[2018-08-29] MEDS: ALBUTEROL/IPRATROPIUM 2.5MG/0.5MG, 3 ML NPPB SCH ×4 (07:00→20:50)
[2018-08-29 08:30] VITALS: BP 166/83
[2018-08-29] MEDS: LACTOBACILLUS CHEW TABLET PO SCH ×3 (08:53→21:28)
[2018-08-29] MEDS: SODIUM CHLORIDE FLUSH 10ML SYR IVF SCH ×2 (08:54→21:00)
[2018-08-29] MEDS: FUROSEMIDE 40 MG/4 ML IV SCH (08:54)
[2018-08-29 09:38] VITALS: BP 136/84
[2018-08-29] MEDS: BUDESONIDE 0.5 MG/2 ML INHA NPPB SCH ×2 (10:11→20:50)
[2018-08-29] MEDS: DAPTOMYCIN 600 MG in SODIUM CHLORIDE 0.9% 100 ML IV SCH (11:30)
[2018-08-29 12:30] VITALS: BP 126/85
[2018-08-29] MEDS: MICAFUNGIN 100 MG in SODIUM CHLORIDE 0.9% 100 ML IV SCH (14:14)
[2018-08-29] MEDS: ENOXAPARIN 40 MG/0.4 ML SQ SCH (14:20)
[2018-08-29] MEDS ORDERED: HYDROcodone/APAP 5/325 TABLET PO PRN (14:30)
[2018-08-29] MEDS ORDERED: AMINO ACID 10% IV SCH ×2 (17:00)
[2018-08-29] MEDS ORDERED: [UNRECOGNIZED DRUG - OTHER] IV SCH (17:00)
[2018-08-29] MEDS ORDERED: DEXTROSE 70% IV SCH ×2 (17:00)
[2018-08-29] MEDS ORDERED: SMOF TPN IV SCH ×2 (17:00)
[2018-08-29] MEDS ORDERED: FAT EMUL IV SCH ×2 (17:00)
[2018-08-29] MEDS ORDERED: [UNRECOGNIZED DRUG - OTHER] IV SCH (17:00)
[2018-08-29] MEDS: HYDROmorphone 2 MG/ML, 1ML IVPush PRN (18:45)
[2018-08-29 19:31] VITALS: BP 146/79
[2018-08-30 01:15] VITALS: BP 154/87
[2018-08-30] MEDS: MEROPENEM 1 GM in SODIUM CHLORIDE 0.9% 100 ML IV SCH ×3 (06:16→23:04)
[2018-08-30 06:42] LABS: MEAN CORPUSCULAR HEMOGLOBIN 26.9 pg (27.0-34.8); MEAN CORPUSCULAR HGB CONC 33.1 g/dL (32.4-35.8); MEAN CORPUSCULAR VOLUME 81.1 fL (80-100); MEAN PLATELET VOLUME 9.1 fL (7.4-10.4); PLATELET COUNT 484 x10^3/uL (130-400); RED BLOOD COUNT 3.65 x10^6/uL (3.82-5.3); RED CELL DISTRIBUTION WIDTH 22.6 % (9.6-15.2)
[2018-08-30 06:55] LABS: ANION GAP 5 mmol/L (5-15); CALCIUM 8.9 mg/dL (8.5-10.1); CHLORIDE 104 mmol/L (98-107)
[2018-08-30 06:59] LABS: ALANINE AMINOTRANSFERASE 57 U/L (12-78); ALKALINE PHOSPHATASE 292 U/L (45-117); BILIRUBIN,TOTAL 0.7 mg/dL (0.2-1.0); CREATININE 0.47 mg/dL (0.55-1.02); PREALBUMIN 15.5 mg/dL (20.0-40.0); TOTAL PROTEIN 6.4 g/dL (6.4-8.2)
[2018-08-30 07:00] LABS: BASOPHILS # (AUTO) 0.05 x10^3/uL (0-0.1); BASOPHILS % (AUTO) 1 % (0-1); EOSINOPHILS # (AUTO) 0.57 x10^3/uL (0-0.4); EOSINOPHILS % (AUTO) 7 % (1-7); LYMPHOCYTES # (AUTO) 2.17 x10^3/uL (1-3.4); LYMPHOCYTES % (AUTO) 27 % (22-44); MD SCAN; MONOCYTES # (AUTO) 0.85 x10^3/uL (0.2-0.8); MONOCYTES % (AUTO) 11 % (2-9); NEUTROPHILS # (AUTO) 4.34 x10^3/uL (1.8-6.8); NEUTROPHILS % (AUTO) 54 % (42-75)
[2018-08-30] MEDS: ALBUTEROL/IPRATROPIUM 2.5MG/0.5MG, 3 ML NPPB SCH ×4 (07:00→20:30)
[2018-08-30] MEDS: BUDESONIDE 0.5 MG/2 ML INHA NPPB SCH ×2 (07:09→20:30)
[2018-08-30] MEDS: INSULIN LISPRO 100 UNITS/ML, PEN SQ-INSULIN SCH (07:28)
[2018-08-30 07:36] VITALS: BP 141/83
[2018-08-30] MEDS: OXYcodone IR 5MG TABLET PO PRN ×2 (07:39→16:43)
[2018-08-30] MEDS: ERGOCALCIFEROL 50,000 UNIT CAPSULE PO SCH (07:39)
[2018-08-30] MEDS: FUROSEMIDE 40 MG/4 ML IV SCH (07:40)
[2018-08-30] MEDS: LACTOBACILLUS CHEW TABLET PO SCH ×3 (07:40→23:04)
[2018-08-30] MEDS: SODIUM CHLORIDE FLUSH 10ML SYR IVF SCH ×2 (07:41→23:04)
[2018-08-30] MEDS: MUPIROCIN OINT 2%, 22GM TP SCH ×2 (11:00→16:49)
[2018-08-30] MEDS: DAPTOMYCIN 600 MG in SODIUM CHLORIDE 0.9% 100 ML IV SCH (12:24)
[2018-08-30 13:24] VITALS: BP 132/86
[2018-08-30] MEDS: MICAFUNGIN 100 MG in SODIUM CHLORIDE 0.9% 100 ML IV SCH (14:38)
[2018-08-30] MEDS: ENOXAPARIN 40 MG/0.4 ML SQ SCH (15:09)
[2018-08-30] MEDS ORDERED: FAT EMUL IV SCH (17:00)
[2018-08-30] MEDS ORDERED: [UNRECOGNIZED DRUG - OTHER] IV SCH (17:00)
[2018-08-30] MEDS ORDERED: DEXTROSE 70% IV SCH (17:00)
[2018-08-30] MEDS ORDERED: SMOF TPN IV SCH (17:00)
[2018-08-30] MEDS ORDERED: AMINO ACID 10% IV SCH (17:00)
[2018-08-30] MEDS: HYDROmorphone 2 MG/ML, 1ML IVPush PRN (23:05)
[2018-08-30 23:15] VITALS: BP 114/76
[2018-08-31 01:10] VITALS: BP 139/86
[2018-08-31] MEDS: ALBUTEROL/IPRATROPIUM 2.5MG/0.5MG, 3 ML NPPB SCH ×4 (05:28→19:50)
[2018-08-31] MEDS: MUPIROCIN OINT 2%, 22GM TP SCH ×2 (05:30→18:00)
[2018-08-31] MEDS: MEROPENEM 1 GM in SODIUM CHLORIDE 0.9% 100 ML IV SCH ×3 (06:23→23:39)
[2018-08-31 08:31] VITALS: BP 135/85
[2018-08-31] MEDS: BUDESONIDE 0.5 MG/2 ML INHA NPPB SCH ×2 (09:00→19:50)
[2018-08-31] MEDS: FUROSEMIDE 40 MG/4 ML IV SCH (09:58)
[2018-08-31] MEDS: LACTOBACILLUS CHEW TABLET PO SCH ×3 (09:58→21:32)
[2018-08-31] MEDS: SODIUM CHLORIDE FLUSH 10ML SYR IVF SCH ×2 (09:59→21:32)
[2018-08-31] MEDS: INSULIN LISPRO 100 UNITS/ML, PEN SQ-INSULIN SCH (09:59)
[2018-08-31] MEDS ORDERED: FURO10VI37 IV (12:34)
[2018-08-31] MEDS: DAPTOMYCIN 600 MG in SODIUM CHLORIDE 0.9% 100 ML IV SCH (13:24)
[2018-08-31] MEDS: OXYcodone IR 5MG TABLET PO PRN (13:40)
[2018-08-31 14:08] VITALS: BP 134/94
[2018-08-31] MEDS: HYDROmorphone 2 MG/ML, 1ML IVPush PRN ×2 (14:30→21:32)
[2018-08-31] MEDS: ENOXAPARIN 40 MG/0.4 ML SQ SCH (15:31)
[2018-08-31] MEDS: MICAFUNGIN 100 MG in SODIUM CHLORIDE 0.9% 100 ML IV SCH (16:00)
[2018-08-31] MEDS ORDERED: AMINO ACID 10% IV SCH (17:00)
[2018-08-31] MEDS ORDERED: DEXTROSE 70% IV SCH (17:00)
[2018-08-31] MEDS ORDERED: [UNRECOGNIZED DRUG - OTHER] IV SCH (17:00)
[2018-08-31] MEDS ORDERED: FAT EMUL IV SCH (17:00)
[2018-08-31] MEDS ORDERED: SMOF TPN IV SCH (17:00)
[2018-08-31 20:00] VITALS: BP 134/82
[2018-09-01 02:00] VITALS: BP 129/83
[2018-09-01] MEDS: MUPIROCIN OINT 2%, 22GM TP SCH (02:07)
[2018-09-01] MEDS: HYDROmorphone 2 MG/ML, 1ML IVPush PRN (04:37)
[2018-09-01 06:09] LABS: ANION GAP 5 mmol/L (5-15); CALCIUM 9.3 mg/dL (8.5-10.1); CHLORIDE 103 mmol/L (98-107); CREATININE 0.52 mg/dL (0.55-1.02)
[2018-09-01] MEDS: ALBUTEROL/IPRATROPIUM 2.5MG/0.5MG, 3 ML NPPB SCH ×2 (07:00→10:20)
[2018-09-01] MEDS: BUDESONIDE 0.5 MG/2 ML INHA NPPB SCH (07:16)
[2018-09-01 07:55] VITALS: BP 125/86
[2018-09-01] MEDS: FUROSEMIDE 40 MG/4 ML IV SCH (07:55)
[2018-09-01] MEDS: MEROPENEM 1 GM in SODIUM CHLORIDE 0.9% 100 ML IV SCH (07:55)
[2018-09-01] MEDS: LACTOBACILLUS CHEW TABLET PO SCH (07:55)
[2018-09-01] MEDS: SODIUM CHLORIDE FLUSH 10ML SYR IVF SCH (07:56)
[2018-09-01] MEDS: INSULIN LISPRO 100 UNITS/ML, PEN SQ-INSULIN SCH (07:58)
[2018-09-01] MEDS: OXYcodone IR 5MG TABLET PO PRN (12:41)
[2018-09-01 13:32] VITALS: BP 128/85
== END 2018-09-01 14:28 | DRG 981 ==
LOC: ED 10:58 → EDIP 12:07 → 4EST 13:11 → CCU 08-17 18:35 → 4NOR 08-21 11:54 → 5SO 08-23 02:19 → CCU 08-23 09:16 → ICU 08-23 21:00 → 5SO 08-28 15:07
PROVIDERS: ADMIT Internal Medicine; ATTEND Internal Medicine
PROC: 0DTN0ZZ Resection of Sigmoid Colon, Open Approach (ICD-10-PCS; 2018-08-17)
PROC: 0DBP0ZZ Excision of Rectum, Open Approach (ICD-10-PCS; 2018-08-17)
PROC: 0D1M0Z4 Bypass Descending Colon to Cutaneous, Open Approach (ICD-10-PCS; 2018-08-17)
PROC: 0W9J0ZZ Drainage of Pelvic Cavity, Open Approach (ICD-10-PCS; 2018-08-17)
PROC: 0T9B70Z Drainage of Bladder with Drainage Device, Via Natural or Artificial Opening (ICD-10-PCS; 2018-08-17)
PROC: 5A1955Z Respiratory Ventilation, Greater than 96 Consecutive Hours (ICD-10-PCS; 2018-08-17)
PROC: 0BH17EZ Insertion of Endotracheal Airway into Trachea, Via Natural or Artificial Opening (ICD-10-PCS; 2018-08-17)
PROC: 30233N1 Transfusion of Nonautologous Red Blood Cells into Peripheral Vein, Percutaneous Approach (ICD-10-PCS; 2018-08-20)
PROC: 02HV33Z Insertion of Infusion Device into Superior Vena Cava, Percutaneous Approach (ICD-10-PCS; 2018-08-25)
PROC: B548ZZA Ultrasonography of Superior Vena Cava, Guidance (ICD-10-PCS; 2018-08-25)
PROC: 02HV33Z Insertion of Infusion Device into Superior Vena Cava, Percutaneous Approach (ICD-10-PCS; principal; 2018-09-01)
PROC: B5181ZA Fluoroscopy of Superior Vena Cava using Low Osmolar Contrast, Guidance (ICD-10-PCS; 2018-09-01)
PROC: B548ZZA Ultrasonography of Superior Vena Cava, Guidance (ICD-10-PCS; 2018-09-01)
DX: E11.621 Type 2 diabetes mellitus with foot ulcer (principal); A41.9 Sepsis, unspecified organism; K65.0 Generalized (acute) peritonitis; K65.1 Peritoneal abscess; J96.01 Acute respiratory failure with hypoxia; R65.21 Severe sepsis with septic shock; T80.211A Bloodstream infection due to central venous catheter, initial encounter; B49 Unspecified mycosis; E87.3 Alkalosis; J44.1 Chronic obstructive pulmonary disease with (acute) exacerbation; J98.11 Atelectasis; K55.9 Vascular disorder of intestine, unspecified; K56.600 Partial intestinal obstruction, unspecified as to cause; K57.80 Diverticulitis of intestine, part unspecified, with perforation and abscess without bleeding; L03.115 Cellulitis of right lower limb; M48.56XA Collapsed vertebra, not elsewhere classified, lumbar region, initial encounter for fracture; M86.8X6 Other osteomyelitis, lower leg; D50.9 Iron deficiency anemia, unspecified; E11.42 Type 2 diabetes mellitus with diabetic polyneuropathy; E11.65 Type 2 diabetes mellitus with hyperglycemia; E11.69 Type 2 diabetes mellitus with other specified complication; E66.01 Morbid (severe) obesity due to excess calories; E83.42 Hypomagnesemia; E83.51 Hypocalcemia; E87.6 Hypokalemia; E88.09 Other disorders of plasma-protein metabolism, not elsewhere classified; F17.210 Nicotine dependence, cigarettes, uncomplicated; G89.29 Other chronic pain; I11.0 Hypertensive heart disease with heart failure; I25.10 Atherosclerotic heart disease of native coronary artery without angina pectoris; I50.9 Heart failure, unspecified; K21.9 Gastro-esophageal reflux disease without esophagitis; K44.9 Diaphragmatic hernia without obstruction or gangrene; L97.509 Non-pressure chronic ulcer of other part of unspecified foot with unspecified severity; M47.816 Spondylosis without myelopathy or radiculopathy, lumbar region; M51.36 Other intervertebral disc degeneration, lumbar region; B96.1 Klebsiella pneumoniae [K. pneumoniae] as the cause of diseases classified elsewhere; B95.62 Methicillin resistant Staphylococcus aureus infection as the cause of diseases classified elsewhere; B96.5 Pseudomonas (aeruginosa) (mallei) (pseudomallei) as the cause of diseases classified elsewhere; Z88.8 Allergy status to other drugs, medicaments and biological substances
CPT/HCPCS: 36415; 36600; 73590; 74018; 87106; 99285; J3475; J3490; J7042; J7613; J7620; J7626; 36573; 71045; 71275; 74177; 80048; 80053; 80202; 81001; 82330; 82533; 82565; 82803; 82947; 82962; 83036; 83605; 83735; 84100; 84132; 84134; 84295; 84478; 84484; 85014; 85025; 85610; 85651; 85730; 86850; 86900; 86923; 87040; 87070; 87077; 87081; 87186; 87205; 87324; 88307; 93005; 93308; 93321; 93325; 93922; 94002; 94003; 94150; 94640; 94667; 94668; 96365; 96375; 96376; A9585; C1729; G0378; J0295; J0610; J0696; J0878; J1170; J1650; J1885; J1940; J2185; J2248; J2250; J2270; J2405; J2704; J3010; J3370; J3480; J7060; P9047; Q9967; C1751; C1765; C9113; G0009; J0330; J1120; J1644; J1720; J1815; J2370; J3420; J7030; J7050; J7120; J7512; P9016

== ENCOUNTER 2018-11-08 12:56 | Inpatient (IN) | payer OTHER ==
[~2018-11-08] VITALS: Ht 157.5 cm; Wt 84.3 kg
[~2018-11-08 12:56] MED LIST changes: +CALC3.7S5 INH; +CEFT2PIG IV; +CLIN150C14 PO; +FURO10VI37 IV; +MUPI22OI2 TP; +Maalox/Hyoscyamine/Lidocaine PO; +POTA20PA25 PO; +SUCR1ORA11 PO; +SULF1TAB24 PO; +[UNRECOGNIZED DRUG - OTHER]
--- NOTE | 2018-11-08 13:19 | NUR ---
[facility] ZEE from extended stay hotel where she currently lives. C/O N/V x 3 days and decreased appetite since being D/C'd from [facility]. Recent colostomy placed by MD Fritz for "blockage". C/O 01/22 ABD pain. Absent BS. Placed in NIBP and pulse ox. Will continue to monitor.
--- NOTE | 2018-11-08 13:20 | NUR ---
No output from colostomy for 2-3 hours. Prior to last bag change patient states stool was liquid.
[2018-11-08] MEDS ORDERED: ONDANSETRON 2MG/ML, 2ML ONE (13:29)
[2018-11-08] MEDS ORDERED: MORPHINE SULFATE 4 MG/ML, 1ML ONE ×2 (13:29→15:32)
[2018-11-08] MEDS ORDERED: SODIUM CHLORIDE FLUSH 10ML SYR IVF ONE (13:30)
[2018-11-08] MEDS ORDERED: ONDANSETRON 2MG/ML, 2ML IVPush ONE (13:30)
[2018-11-08] MEDS ORDERED: HYDR-3241 PO (14:00)
[2018-11-08] MEDS ORDERED: METO50TA82 PO (14:00)
[2018-11-08] MEDS ORDERED: MELO7.5T31 PO (14:00)
[2018-11-08] MEDS ORDERED: TRAZ-137 PO (14:00)
[2018-11-08] MEDS ORDERED: GABA300C10 PO (14:00)
[2018-11-08] MEDS ORDERED: CEPH-368 PO (14:00)
[2018-11-08] MEDS ORDERED: DOCU-131 PO (14:00)
[2018-11-08] MEDS ORDERED: TRAM50TA2 PO (14:00)
[2018-11-08] MEDS ORDERED: FURO40TA6 PO (14:00)
[2018-11-08] MEDS ORDERED: FAMO-79 PO (14:00)
[2018-11-08] MEDS ORDERED: POTA20TA89 PO (14:00)
[2018-11-08 14:06] LABS: BASOPHILS # (AUTO) 0.02 x10^3/uL (0-0.1); BASOPHILS % (AUTO) 0 % (0-1); EOSINOPHILS # (AUTO) 0.08 x10^3/uL (0-0.4); EOSINOPHILS % (AUTO) 2 % (1-7); LYMPHOCYTES # (AUTO) 1.09 x10^3/uL (1-3.4); LYMPHOCYTES % (AUTO) 23 % (22-44); MD NO; MEAN CORPUSCULAR HEMOGLOBIN 27.8 pg (27.0-34.8); MEAN CORPUSCULAR HGB CONC 32.4 g/dL (32.4-35.8); MEAN CORPUSCULAR VOLUME 85.9 fL (80-100); MEAN PLATELET VOLUME 7.7 fL (7.4-10.4); MONOCYTES # (AUTO) 0.54 x10^3/uL (0.2-0.8); MONOCYTES % (AUTO) 11 % (2-9); NEUTROPHILS # (AUTO) 3.01 x10^3/uL (1.8-6.8); NEUTROPHILS % (AUTO) 64 % (42-75); PLATELET COUNT 369 x10^3/uL (130-400); RED BLOOD COUNT 3.97 x10^6/uL (3.82-5.3); RED CELL DISTRIBUTION WIDTH 15.9 % (9.6-15.2)
[2018-11-08] MEDS: MORPHINE SULFATE 4 MG/ML, 1ML IVPush PRN ×2 (14:07→15:37)
[2018-11-08 14:11] LABS: ALANINE AMINOTRANSFERASE 10 U/L (12-78); ALBUMIN 2.9 g/dL (3.4-5.0); ANION GAP 6 mmol/L (5-15); CALCIUM 8.9 mg/dL (8.5-10.1); CHLORIDE 107 mmol/L (98-107); CREATININE 0.62 mg/dL (0.55-1.02)
[2018-11-08 14:14] LABS: ALKALINE PHOSPHATASE 115 U/L (45-117); BILIRUBIN,TOTAL 0.3 mg/dL (0.2-1.0); TOTAL PROTEIN 6.7 g/dL (6.4-8.2)
--- NOTE | 2018-11-08 14:14 | NUR ---
IV started. Meds admin. No other needs.
--- NOTE | 2018-11-08 14:41 | NUR ---
Patient to CT.
[2018-11-08] MEDS ORDERED: OMNIPAQUE 350 MG/ML, 100ML BOTTLE ONE (15:03)
--- NOTE | 2018-11-08 15:45 | NUR ---
C/O pain. MONROE Sánchez medicated patient and assisted her to BSC.
--- NOTE | 2018-11-08 15:55 | NUR ---
Patient expressing concern over ability to care for self at home. PO challenge started. Plan is for admit. VSS.
--- NOTE | 2018-11-08 16:50 | NUR ---
Report to MONROE [place].
[2018-11-08] MEDS ORDERED: ERGOCALCIFEROL 50,000 UNIT CAPSULE PO SCH (17:30)
[2018-11-08] MEDS ORDERED: ONDANSETRON ODT 4 MG PO PRN (17:30)
[2018-11-08] MEDS ORDERED: PROMETHAZINE 25 MG/ML, 1ML IM PRN (17:30)
[2018-11-08] MEDS ORDERED: ONDANSETRON 2MG/ML, 2ML IVPush PRN (17:30)
[2018-11-08 17:47] VITALS: BP 157/97
[2018-11-08] MEDS: ENOXAPARIN 40 MG/0.4 ML SQ SCH (18:09)
[2018-11-08] MEDS: GABAPENTIN 300 MG CAPSULE PO SCH ×2 (18:09→20:22)
[2018-11-08] MEDS: SODIUM CHLORIDE 0.9% 1,000 ML IV SCH (18:09)
[2018-11-08 19:11] LABS: HEMOGLOBIN A1C 4.9 % (4.2-6.3)
[2018-11-08] MEDS: TRAZODONE 100MG TABLET PO SCH (20:22)
[2018-11-08] MEDS: METOPROLOL TARTRATE 50 MG TABLET PO SCH (20:22)
[2018-11-08] MEDS: FAMOTIDINE 20 MG TABLET PO SCH (20:22)
[2018-11-08 20:57] VITALS: BP 146/87
[2018-11-08] MEDS ORDERED: (Fluticasone/Salmeterol** (Advair 250-50 Diskus**) 1 PUFF) INH SCH (21:00)
[2018-11-08] MEDS: DOCUSATE 100 MG CAPSULE PO SCH (21:00)
[2018-11-08] MEDS: BUDESONIDE 0.5 MG/2 ML INHA INH SCH (22:00)
[2018-11-08] MEDS: ACETAMINOPHEN 325 MG TABLET PO PRN (22:22)
[2018-11-09 03:03] VITALS: BP 138/74
[2018-11-09] MEDS: ALBUTEROL SULFATE 2.5 MG/3 ML HHN SCH ×3 (04:30→19:58)
[2018-11-09 05:12] LABS: BASOPHILS # (AUTO) 0.03 x10^3/uL (0-0.1); BASOPHILS % (AUTO) 1 % (0-1); EOSINOPHILS # (AUTO) 0.35 x10^3/uL (0-0.4); EOSINOPHILS % (AUTO) 8 % (1-7); LYMPHOCYTES # (AUTO) 1.29 x10^3/uL (1-3.4); LYMPHOCYTES % (AUTO) 28 % (22-44); MD NO; MEAN CORPUSCULAR HEMOGLOBIN 27.8 pg (27.0-34.8); MEAN CORPUSCULAR HGB CONC 32.2 g/dL (32.4-35.8); MEAN CORPUSCULAR VOLUME 86.3 fL (80-100); MEAN PLATELET VOLUME 8.1 fL (7.4-10.4); MONOCYTES # (AUTO) 0.64 x10^3/uL (0.2-0.8); MONOCYTES % (AUTO) 14 % (2-9); NEUTROPHILS % (AUTO) 50 % (42-75); PLATELET COUNT 338 x10^3/uL (130-400); RED BLOOD COUNT 3.79 x10^6/uL (3.82-5.3); RED CELL DISTRIBUTION WIDTH 16.5 % (9.6-15.2)
[2018-11-09 05:16] LABS: ALANINE AMINOTRANSFERASE 11 U/L (12-78); ALBUMIN 2.6 g/dL (3.4-5.0); ANION GAP 4 mmol/L (5-15); CALCIUM 8.6 mg/dL (8.5-10.1); CHLORIDE 108 mmol/L (98-107); CREATININE 0.68 mg/dL (0.55-1.02)
[2018-11-09 05:19] LABS: ALKALINE PHOSPHATASE 110 U/L (45-117); BILIRUBIN,TOTAL 0.3 mg/dL (0.2-1.0); TOTAL PROTEIN 6.2 g/dL (6.4-8.2)
[2018-11-09] MEDS: SODIUM CHLORIDE 0.9% 1,000 ML IV SCH ×2 (05:47→19:25)
[2018-11-09 06:10] LABS: MICROSCOPIC NOT IND
[2018-11-09 06:13] LABS: CULTURE INDICATED? NO
[2018-11-09] MEDS: BUDESONIDE 0.5 MG/2 ML INHA INH SCH ×2 (06:53→19:58)
[2018-11-09 08:08] VITALS: BP 126/80
[2018-11-09] MEDS: METOPROLOL TARTRATE 50 MG TABLET PO SCH ×2 (08:11→20:12)
[2018-11-09] MEDS: DOCUSATE 100 MG CAPSULE PO SCH ×2 (08:11→20:11)
[2018-11-09] MEDS: FAMOTIDINE 20 MG TABLET PO SCH ×2 (08:12→20:12)
[2018-11-09] MEDS: GABAPENTIN 300 MG CAPSULE PO SCH ×3 (08:12→20:12)
[2018-11-09] MEDS ORDERED: KETOROLAC 30 MG/1 ML IVPush PRN (09:00)
[2018-11-09] MEDS: ACETAMINOPHEN 325 MG TABLET PO PRN (10:37)
[2018-11-09 15:12] VITALS: BP 115/76
[2018-11-09 18:43] VITALS: BP 120/80
[2018-11-09] MEDS: TRAZODONE 100MG TABLET PO SCH (20:11)
[2018-11-09] MEDS: ENOXAPARIN 40 MG/0.4 ML SQ SCH (20:11)
[2018-11-10] MEDS: ALBUTEROL SULFATE 2.5 MG/3 ML HHN SCH ×4 (02:37→18:51)
[2018-11-10 02:41] VITALS: BP 122/76
[2018-11-10] MEDS: BUDESONIDE 0.5 MG/2 ML INHA INH SCH (07:27)
[2018-11-10] MEDS: FAMOTIDINE 20 MG TABLET PO SCH (08:26)
[2018-11-10] MEDS: METOPROLOL TARTRATE 50 MG TABLET PO SCH (08:26)
[2018-11-10] MEDS: GABAPENTIN 300 MG CAPSULE PO SCH ×2 (08:26→17:53)
[2018-11-10] MEDS: DOCUSATE 100 MG CAPSULE PO SCH (08:26)
[2018-11-10] MEDS: SODIUM CHLORIDE 0.9% 1,000 ML IV SCH (08:28)
[2018-11-10 11:39] VITALS: BP 158/102
[2018-11-10 13:55] VITALS: BP 131/82
== END 2018-11-10 19:01 | disposition home or self-care (01) | DRG 391 ==
LOC: ED 15:59 → EDIP 16:00 → ED 16:07 → 3NE 16:47
PROVIDERS: ADMIT Internal Medicine; ATTEND Internal Medicine
DX: R11.2 Nausea with vomiting, unspecified (principal); E43 Unspecified severe protein-calorie malnutrition; J96.90 Respiratory failure, unspecified, unspecified whether with hypoxia or hypercapnia; I50.32 Chronic diastolic (congestive) heart failure; I11.0 Hypertensive heart disease with heart failure; J44.9 Chronic obstructive pulmonary disease, unspecified; R62.7 Adult failure to thrive; K44.9 Diaphragmatic hernia without obstruction or gangrene; N83.202 Unspecified ovarian cyst, left side; E11.9 Type 2 diabetes mellitus without complications; M54.9 Dorsalgia, unspecified; G89.29 Other chronic pain; I25.10 Atherosclerotic heart disease of native coronary artery without angina pectoris; E66.9 Obesity, unspecified; D64.9 Anemia, unspecified; Z87.891 Personal history of nicotine dependence; Z79.52 Long term (current) use of systemic steroids; Z93.3 Colostomy status; Z79.84 Long term (current) use of oral hypoglycemic drugs; Z99.81 Dependence on supplemental oxygen; Z98.51 Tubal ligation status; Z80.3 Family history of malignant neoplasm of breast; Z80.1 Family history of malignant neoplasm of trachea, bronchus and lung; Z82.61 Family history of arthritis; Z68.34 Body mass index [BMI] 34.0-34.9, adult; Z88.8 Allergy status to other drugs, medicaments and biological substances; Z79.899 Other long term (current) drug therapy
CPT/HCPCS: 36415; 74021; 99285; J7613; J7626; 74177; 80053; 81003; 83036; 83690; 83735; 84100; 84443; 85025; 94640; 96374; 96375; G0378; J1650; J2405; Q9967; J2270; J7030

== ENCOUNTER 2018-11-12 12:43 | Emergency (ER) | payer OTHER ==
[~2018-11-12] VITALS: Ht 162.6 cm; Wt 87.0 kg
[~2018-11-12 12:43] MED LIST changes: +DOCU-131 PO; +FAMO-79 PO; +HYDR-3241 PO; +MELO7.5T31 PO; +METO50TA82 PO; +POTA20TA89 PO; +TRAM50TA2 PO; +TRAZ-137 PO
--- NOTE | 2018-11-12 13:10 | NUR ---
BIB BY [facility] FROM HOME FOR N/V/D/ X 5-6 DAYS (REPORTS SHE WAS HOSPITALIZED FOR SAME HERE AND FELT SLIGHTLY BETTER UPON DISCHARGE BUT SYMPTOMS RETURNING. DENIES FEVER/CHILLS. IMMEDIATE EKG OBTAINED FSBS CHECKED BY SENIOR MECHANICAL ENGINEER USING HOSPITAL GLUCOMETER: 99 HR 110, REQUIRING HOME OXYGEN AT 2L. REPORTS INCREASED SOB/LEG SWELLING WELL EMT AT BEDSIDE OBTAINING PIV
[2018-11-12] MEDS ORDERED: ONDANSETRON 2MG/ML, 2ML IVPush ONE (13:30)
[2018-11-12] MEDS ORDERED: SODIUM CHLORIDE 0.9% 1,000ML IVBOLUS ONE (13:30)
[2018-11-12] MEDS ORDERED: SODIUM CHLORIDE FLUSH 10ML SYR IVF ONE (13:30)
[2018-11-12 13:43] LABS: BASOPHILS # (AUTO) 0.03 x10^3/uL (0-0.1); BASOPHILS % (AUTO) 1 % (0-1); EOSINOPHILS # (AUTO) 0.05 x10^3/uL (0-0.4); EOSINOPHILS % (AUTO) 1 % (1-7); LYMPHOCYTES # (AUTO) 2.22 x10^3/uL (1-3.4); LYMPHOCYTES % (AUTO) 41 % (22-44); MD NO; MEAN CORPUSCULAR HEMOGLOBIN 27.4 pg (27.0-34.8); MEAN CORPUSCULAR HGB CONC 31.8 g/dL (32.4-35.8); MEAN PLATELET VOLUME 7.7 fL (7.4-10.4); MONOCYTES # (AUTO) 0.61 x10^3/uL (0.2-0.8); MONOCYTES % (AUTO) 11 % (2-9); NEUTROPHILS # (AUTO) 2.47 x10^3/uL (1.8-6.8); NEUTROPHILS % (AUTO) 46 % (42-75); PLATELET COUNT 439 x10^3/uL (130-400); RED BLOOD COUNT 4.52 x10^6/uL (3.82-5.3)
[2018-11-12] MEDS ORDERED: ONDANSETRON 2MG/ML, 2ML ONE (13:47)
[2018-11-12 13:50] LABS: ALBUMIN 3.3 g/dL (3.4-5.0); ANION GAP 5 mmol/L (5-15); CALCIUM 9.4 mg/dL (8.5-10.1); CHLORIDE 104 mmol/L (98-107)
[2018-11-12 13:54] LABS: ALANINE AMINOTRANSFERASE 14 U/L (12-78); ALKALINE PHOSPHATASE 120 U/L (45-117); BILIRUBIN,TOTAL 0.5 mg/dL (0.2-1.0); CREATININE 0.51 mg/dL (0.55-1.02); TOTAL PROTEIN 7.2 g/dL (6.4-8.2)
--- NOTE | 2018-11-12 14:10 | NUR ---
WITH REASSESSMENT PATIENT REPORTS NAUSEA IMPROVED TO TO 2/10 PROVIDED WITH PO FLUIDS/SOLIDS- TOLERATING UPDATED ON PROVIDER'S POC (DISPO) PLANNING ON TAXI RIDE IVF COMPLETE UP TO RESTROOM W/ WALKER-TOLERATED W/OUT DIFFICULTY
--- NOTE | 2018-11-12 14:50 | NUR ---
PATIENT ASKING FOR ASSISTANCE GETTING HOME. MATH AND SCIENCES DEPARTMENT CHAIR ATTEMPTING TO CALL [facility] PATIENT FEEELS SHE CANNOT WALK FROM THE TAXI TO HER SINGLE STORY APARTMENT. CHECKED WITH [employer] ON DELAY.
[2018-11-12 16:10] VITALS: BP 132/71
== END 2018-11-12 16:13 | disposition home or self-care (01) ==
LOC: ED 15:03
DX: R11.2 Nausea with vomiting, unspecified (principal); J44.9 Chronic obstructive pulmonary disease, unspecified; E11.9 Type 2 diabetes mellitus without complications; Z87.891 Personal history of nicotine dependence; I10 Essential (primary) hypertension
CPT/HCPCS: 80053; 82962; 85025; 96361; 96374; 99283; J2405; J7030